=== PATIENT | male | born 1935 | race Caucasian/White ===

== ENCOUNTER 2020-08-08 13:39 | Outpatient (RCR) | payer MEDICARE, SELFPAY ==
[2020-10-07 12:25] LABS: Glucose, Whole Blood 106 mg/dL (60-115)
--- NOTE | 2020-11-28 15:33 | P.DS_ITS ---
DS: Providers Provider Date of Service: 11/29/20 DS: Transfer Hospital Acceptance Name of Facility[facility] [place] DS: Diagnosis Discharge Diagnosis (1) Dementia: Status: Acute (2) Neuropathy: Status: Acute (3) HTN (hypertension): Status: Acute (4) BPH (benign prostatic hyperplasia): Status: Acute DS: Medications Discharge Medications Home Medications: Previous Rx's Medication Instructions Recorded acetaminophen 325 mg PO Q4H PRN #30 tab 11/28/20 acetaminophen 650 mg PO TID@0800,1300,2000 #30 11/28/20 tab aspirin 81 mg PO DAILY@0900 #30 tab 11/28/20 atenolol 25 mg PO DAILY@0800 #30 tab 11/28/20 atorvastatin 10 mg PO BEDTIME@1999 #30 tab 11/28/20 betamethasone, augmented 1 appl TOPICAL BID #30 g 11/28/20 bisacodyl [Gentle Laxative 10 mg [place] DAILY PRN #30 ea 11/28/20 (bisacodyl)] docusate sodium 100 mg PO BID@0900,1700 #30 ml 11/28/20 donepezil 10 mg PO BEDTIME@2000 #30 tab 11/28/20 lisinopril 10 mg PO DAILY@0800 #30 tab 11/28/20 magnesium hydroxide [Milk of 30 ml PO BEDTIME PRN #30 ml 11/28/20 Magnesia] memantine 5 mg PO BID@1000,2200 #30 tab 11/28/20 oxycodone 5 mg PO Q6H PRN #30 tab 11/28/20 polyethylene glycol 3350 17 g PO DAILY #30 ea 11/28/20 sennosides [Senna Lax] 8.6 mg PO DAILY@2100 #30 tab 11/28/20 tamsulosin 0.4 mg PO DAILY@2000 #30 cap 11/28/20 DS: Summary Hospital Course Hospital Course: Mr. Giordano is a 84 year old with a history of progressive dementia, prior heavy alcohol use with subsequent neuropathy, HTN and a history of falls. Mr. Traylor's HTN is well controlled on his current regimen. He has a history of heavy alcohol use and has a subsequent neuropathy. He also has dementia which may be related to his alcohol use. He is on aricept and memantine. Mr Kymberly does have an expressive aphasia and is often yelling out, but is redirectable. It is unclear if this is part of the patient's dementia. I see no record of a stroke. The patient does have a history of BPH and is on flomax. Mr. Traylor did not have any acute care hospitalizations while with us. He tested positive for COVID in March 2020 and did receive two doses of the Pfizer COVID vaccine under our care. Time Spent with Patient Time attestation: Total time spent providing and/or coordinating discharge services: Discharge coordination time: Greater than 30 minutes DS: Data Data Completed and Pending Labs on day of discharge: Laboratory Tests 10/07/20 12:21 POC Glucose 106 Discharge Plan Discharge Attending provider: Shabbir Faye Medications: New docusate sodium 50 mg/5 mL Liquid 100 mg PO BID@0900,1700 Qty: 30 RF: 0 sennosides [Senna Lax] 8.6 mg Tablet 8.6 mg PO DAILY@2100 Qty: 30 RF: 0 acetaminophen 325 mg Tablet 650 mg PO TID@0800,1300,1999 Qty: 30 RF: 0 acetaminophen 325 mg Tablet 325 mg PO Q4H PRN (Reason: Pain, Mild (Pain Scale 1-3)) Qty: 30 RF: 0 polyethylene glycol 3350 17 gram Powder In Packet 17 g PO DAILY Qty: 30 RF: 0 atorvastatin 10 mg Tablet 10 mg PO BEDTIME@1999 Qty: 30 RF: 0 donepezil 10 mg Tablet 10 mg PO BEDTIME@1999 Qty: 30 RF: 0 betamethasone, augmented 0.05 % Cream 1 appl topical BID Qty: 30 RF: 0 atenolol 25 mg Tablet 25 mg PO DAILY@0800 Qty: 30 RF: 0 magnesium hydroxide [Milk of Magnesia] 400 mg/5 mL Suspension 30 ml PO BEDTIME PRN (Reason: Constipation) Qty: 30 RF: 0 tamsulosin 0.4 mg Capsule 0.4 mg PO DAILY@1999 Qty: 30 RF: 0 bisacodyl [Gentle Laxative (bisacodyl)] 10 mg Suppository 10 mg TN DAILY PRN (Reason: Constipation) Qty: 30 RF: 0 lisinopril 10 mg Tablet 10 mg PO DAILY@0800 Qty: 30 RF: 0 aspirin 81 mg Tablet,Chewable 81 mg PO DAILY@0900 Qty: 30 RF: 0 oxycodone 5 mg Tablet 5 mg PO Q6H PRN (Reason: Pain, Severe (Pain Scale 7-10)) Qty: 30 RF: 0 memantine 5 mg Tablet 5 mg PO BID@1000,2200 Qty: 30 RF: 0
== END 2020-11-29 14:53 | disposition home or self-care (01) ==
LOC: HO.SHU2 13:39
PROVIDERS: Visit Provider Hospitalist
DX: Z51.89 Encounter for other specified aftercare (principal)
CPT/HCPCS: 82947; 99217

== ENCOUNTER 2020-12-02 05:36 | Outpatient (REF) | payer MEDICARE, SELFPAY ==
[2020-12-02 06:50] LABS: Basophils Percent Auto 0.3 % (0-2); Eosinophils Absolute Auto 0.5 X10*3/uL (0.0-0.4); Eosinophils Percent Auto 5.4 % (0-4); Hemoglobin 8.7 g/dl (14.0-18.0); Imm Gran Abs Auto 0.05 X10*3/uL (0.00-0.03); Imm Gran Pct Auto 0.6 % (0.0-0.4); Lymphocytes Absolute Auto 2.1 X10*3/uL (1.2-4.9); Lymphocytes Percent Auto 23.1 % (20-40); MANUAL DIFF FLAG NO; Mean Corpuscular HGB Conc 33.5 g/dl (31.0-36.0); Mean Corpuscular Hemoglobin 32.5 pg (27.0-33.0); Mean Platelet Volume 9.7 fL (9.4-12.4); Monocytes Absolute Auto 0.9 X10*3/uL (0.1-1.2); Monocytes Percent Auto 9.9 % (2-11); Neutrophils Absolute Auto 5.5 X10*3/uL (2.0-8.3); Neutrophils Percent Auto 60.7 % (45-73); Platelet Count 230 X10*3/uL (160-400); Red Blood Count 2.68 X10*6/uL (4.60-5.80); Red Cell Distribution Width 12.9 % (11.0-16.0); White Blood Count 9.1 X10*3/uL (4.8-10.8)
[2020-12-02 07:28] LABS: Anion Gap 13 (12-20); Blood Urea Nitrogen 59 mg/dL (9-16); Calcium 8.8 mg/dL (8.4-10.2); Carbon Dioxide 25 mmol/L (22-29); Chloride 107 mmol/L (96-108); Estimated Glomerular Filt Rate 53; Glucose Fasting 90 mg/dL (60-99); Potassium 4.2 mmol/l (3.3-5.1); Sodium 141 mmol/L (135-145)
== END 2020-12-02 05:37 | disposition home or self-care (01) ==
LOC: HO.HSH2E 05:36
PROVIDERS: Visit Provider Internal Medicine Endocrinology, Diabetes & Metabolism
DX: D64.9 Anemia, unspecified (principal)
CPT/HCPCS: 36415; 80048; 85025

== ENCOUNTER 2020-12-03 07:07 | Outpatient (REF) | payer MEDICARE, SELFPAY ==
[2020-12-03 09:06] LABS: Ferritin 138 ng/mL (20-250)
[2020-12-03 09:29] LABS: Folate > 20.0 ng/mL (> or = 4.0); Vitamin B12 772 pg/mL (200-900)
[2020-12-04 18:11] LABS: Haptoglobin 201 mg/dL (43-212)
== END 2020-12-03 07:08 | disposition home or self-care (01) ==
LOC: HO.HSH2E 07:07
PROVIDERS: Visit Provider Internal Medicine Endocrinology, Diabetes & Metabolism
DX: D64.9 Anemia, unspecified (principal); G62.9 Polyneuropathy, unspecified; F03.90 Unspecified dementia, unspecified severity, without behavioral disturbance, psychotic disturbance, mood disturbance, and anxiety
CPT/HCPCS: 36415; 82607; 82728; 82746; 83010

== ENCOUNTER 2020-12-12 04:04 | Emergency (ER) | payer MEDICARE, SELFPAY ==
[2020-12-12 04:18] VITALS: BP 137/65; PULSE 69; RESP 19; TEMP 36.9; O2SAT 97; BMI 28.5
--- NOTE | 2020-12-12 04:47 | XR_ITS ---
EXAMINATION: XR CHEST CLINICAL INFORMATION: Cough COMPARISON: None TECHNIQUE: Frontal view of the chest was obtained. FINDINGS: Lung volumes are symmetric. Patchy retrocardiac opacity is noted. No evidence of pneumothorax, pleural effusion, or pulmonary edema. Cardiac size is within normal limits. Calcification is present at the aortic arch. There is chronic-appearing deformity of the right humeral neck. No acute osseous findings are seen. XR/XR chest 1V IMPRESSION: 1. Patchy retrocardiac opacity suspicious for developing consolidation. 2. Chronic-appearing right humeral neck deformity; clinical correlation recommended.
--- NOTE | 2020-12-12 04:48 | ED_ITS ---
HPI - Fever General Chief Complaint: Fever Stated Complaint: fever Time Seen by Provider: 12/12/20 04:46 History of Present Illness HPI Narrative: This is a an 85-year-old male [facility] a significant past medical history of dementia, neuropathy, hypert ension, BPH for reported concerns elevated temperature of 100.8? after receiving 2nd COVID-19 vaccination. The [facility] did not administer Tylenol. Related Data Previous Rx's Medication Instructions Recorded acetaminophen 325 mg PO Q4H PRN #30 tab 11/28/20 acetaminophen 650 mg PO TID@0800,1300,2000 #30 11/28/20 tab aspirin 81 mg PO DAILY@0900 #30 tab 11/28/20 atenolol 25 mg PO DAILY@0800 #30 tab 11/28/20 atorvastatin 10 mg PO BEDTIME@1999 #30 tab 11/28/20 betamethasone, augmented 1 appl TOPICAL BID #30 g 11/28/20 bisacodyl [Gentle Laxative 10 mg [place] DAILY PRN #30 ea 11/28/20 (bisacodyl)] docusate sodium 100 mg PO BID@0900,1700 #30 ml 11/28/20 donepezil 10 mg PO BEDTIME@1999 #30 tab 11/28/20 lisinopril 10 mg PO DAILY@0800 #30 tab 11/28/20 magnesium hydroxide [Milk of 30 ml PO BEDTIME PRN #30 ml 11/28/20 Magnesia] memantine 5 mg PO BID@1000,2200 #30 tab 11/28/20 oxycodone 5 mg PO Q6H PRN #30 tab 11/28/20 polyethylene glycol 3350 17 g PO DAILY #30 ea 11/28/20 sennosides [Senna Lax] 8.6 mg PO DAILY@2100 #30 tab 11/28/20 tamsulosin 0.4 mg PO DAILY@1999 #30 cap 11/28/20 doxycycline monohydrate 100 mg PO BID 7 Days #14 cap 12/12/20 Allergies Allergy/AdvReac Type Severity Reaction Status Date / Time morphine [MORPHINE] Allergy Mild UNKNOWN Unverified 08/01/20 18:51 erythromycin base Allergy Unknown UNKNOWN Unverified 08/01/20 18:51 [ERYTHROMYCIN BASE] valsartan [VALSARTAN] Allergy Unknown UNKNOWN Unverified 08/01/20 18:51 Review of Systems Review of Systems: Yes Unobtainable due to mental status PMF Past Medical History Source: nursing notes reviewed Medical History Dementia Social History Social History Alcohol intake: unknown Smoking Status: Unknown if ever smoked Use of substances other than those prescribed or required for medical reasons: Unknown Advance Directives: No Physical Exam Vital Signs: Vital Signs: Last Vital Signs Temp 97.6 F 12/12/20 05:48 Pulse 73 12/12/20 05:48 Resp 16 12/12/20 05:48 BP 164/76 H 12/12/20 05:48 Pulse Ox 95 12/12/20 05:48 Body Mass Index 28.5 VITAL SIGNS: Reviewed. GENERAL: Chronically ill, in no acute distress. HEAD: Normocephalic/atraumatic, EYES: PERRLA, EOMI EARS: Ext canals without abnormality NOSE: Nares patent bilateral OROPHARYNX: no oral lesions noted, posterior pharynx clear NECK: Supple, no adenopathy LUNGS: Normal breath sounds. No adventitious sounds or accessory muscle use. SpO2<97> CARDIOVASCULAR: Irregular rate and rhythm without noted murmurs, no JVD or lower extremity edema. ABDOMEN: Soft, non-tender, non-distended with bowel sounds. NEUROLOGIC: Dementia Course Course Course Narrative: This is an 85-year-old male with history and clinical presentation of unclear etiology of [facility]. Review all investigations shows a mild leukocytosis with a reported patchy retrocardiac opacity suspicious for developing consolidation on the chest x-ray without associated tachypnea or hypoxia. Potassium level-5.7 without worsening renal function and may coincide with recent change and lisinopril on 12/05. Patient will be discharged with oral antibiotics and a 1 time dose of Kayexalate with [facility] to repeat the basic metabolic panel in the afternoon for reassessment. Of note, the EKG reflected a rate controlled atrial fibrillation which is not recorded on available documentation and there is no prior EKG for comparison. Patient is known to be a fall risk and could explain the absence of anticoagulation meds on the JAN. MDM - Fever Lab Data Result diagrams: 12/12/20 05:02 12/12/20 05:02 Labs: Lab Results 12/12/20 12/12/20 12/12/20 Range/Units 05:02 05:02 05:51 WBC 11.3 H (4.8-10.8) X10*3/uL RBC 2.97 L (4.60-5.80) X10*6/uL Hgb 9.7 L (14.0-18.0) g/dl Hct 29.0 L (42-52) % MCV 97.6 (80-98) fL MCH 32.7 (27.0-33.0) pg MCHC 33.4 (31.0-36.0) g/dl RDW 12.7 (11.0-16.0) % Plt Count 202 (160-400) X10*3/uL MPV 9.7 (9.4-12.4) fL Immature Gran % (Auto) 0.7 H (0.0-0.4) % Neut % (Auto) 59.4 (45-73) % Lymph % (Auto) 25.2 (20-40) % [place] % (Auto) 9.7 (2-11) % Eos % (Auto) 4.6 H (0-4) % Baso % (Auto) 0.4 (0-2) % Lymph # (Auto) 2.9 (1.2-4.9) X10*3/uL [place] # (Auto) 1.1 (0.1-1.2) X10*3/uL Eos # (Auto) 0.5 H (0.0-0.4) X10*3/uL Baso # (Auto) 0.0 (0.0-0.2) X10*3/uL Abs Immat Gran (auto) 0.08 H (0.00-0.03) X10*3/uL Absolute Neuts (auto) 6.7 (2.0-8.3) X10*3/uL Absolute Nucleated RBC 0.000 (0.0-0.012) X10*3/uL Nucleated RBC % (auto) 0.0 (0.0-0.2) /100WBC Sodium 135 (135-145) mmol/L Potassium 5.7 H D (3.3-5.1) mmol/l Chloride 103 (96-108) mmol/L Carbon Dioxide 20 L (22-29) mmol/L Anion Gap 18 (12-20) BUN 55 H (9-16) mg/dL Creatinine 1.21 (0.5-1.4) mg/dL Estim Creat Clear Calc 55.3 Estimated GFR 57 Random Glucose 82 (60-115) mg/dL Calcium 8.8 (8.4-10.2) mg/dL Total Bilirubin 0.5 (0.0-1.0) mg/dL AST 19 (5-37) U/L ALT 10 (0-40) U/L Alkaline Phosphatase 69 (39-117) U/L Total Protein 6.8 (6.5-8.0) g/dL Albumin 3.8 (3.5-5.0) g/dL Urine Color YELLOW Urine Appearance CLEAR Urine pH 6.5 (5.0-8.0) Ur Specific [place] 1.020 (1.005-1.025) Urine Protein 1+ H (NEG-TRACE) MG/DL Urine Glucose (UA) NEG (NEG) MG/DL Urine Ketones NEG (NEG) MG/DL Urine Blood 1+ H (NEG) Urine Nitrite NEG (NEG) Ur Leukocyte Esterase NEG (NEG) Urine RBC 5-9 H (0) /HPF Urine WBC 1-4 (0-4) /HPF Ur Squamous Epith Cells 1+ /LPF Ur Renal Epithelial Cell 1+ /LPF Urine Bacteria 1+ /LPF ECG Data ECG #1: Attestation: I personally reviewed and interpreted this ECG as follows: Prior ECG tracings: not available for review Interpretation: Atrial fibrillation, HR-68, QRS/QTC within normal limits. Discharge Plan Discharge Clinical Impression: Temperature elevated Pneumonia Qualifiers: Pneumonia type: due to unspecified organism Laterality: unspecified laterality Lung location: unspecified part of lung Qualified Code(s): J18.9 - Pneumonia, unspecified organism Patient Disposition: er [facility] Instructions: Pneumonia (ED) Additional Instructions: 1. Patient was evaluated for elevated temperature and noted to have a mild leukocytosis with chest x-ray findings of patchy opacity suggestive of possible pneumonia and will be sent with a prescription for a course of doxycycline. 2. On basic workup patient was noted to have an elevated potassium level without change in renal function and it is felt this is likely due to recent changes in lisinopril dosing. He was provided with a single dose of Kayexalate and should have his potassium level recheck to this afternoon. 3. The supervising physician should be notified of this potassium level in the morning and appropriate action taken. Prescriptions: New doxycycline monohydrate 100 mg capsule 100 mg PO BID 7 Days Qty: 14 RF: 0 No Action docusate sodium 50 mg/5 mL Liquid 100 mg PO BID@0900,1700 Qty: 30 RF: 0 sennosides [Senna Lax] 8.6 mg Tablet 8.6 mg PO DAILY@2100 Qty: 30 RF: 0 acetaminophen 325 mg Tablet 650 mg PO TID@0800,1300,2000 Qty: 30 RF: 0 acetaminophen 325 mg Tablet 325 mg PO Q4H PRN (Reason: Pain, Mild (Pain Scale 1-3)) Qty: 30 RF: 0 polyethylene glycol 3350 17 gram Powder In Packet 17 g PO DAILY Qty: 30 RF: 0 atorvastatin 10 mg Tablet 10 mg PO BEDTIME@1999 Qty: 30 RF: 0 donepezil 10 mg Tablet 10 mg PO BEDTIME@1999 Qty: 30 RF: 0 betamethasone, augmented 0.05 % Cream 1 appl topical BID Qty: 30 RF: 0 atenolol 25 mg Tablet 25 mg PO DAILY@0800 Qty: 30 RF: 0 magnesium hydroxide [Milk of Magnesia] 400 mg/5 mL Suspension 30 ml PO BEDTIME PRN (Reason: Constipation) Qty: 30 RF: 0 tamsulosin 0.4 mg Capsule 0.4 mg PO DAILY@1999 Qty: 30 RF: 0 bisacodyl [Gentle Laxative (bisacodyl)] 10 mg Suppository 10 mg [place] DAILY PRN (Reason: Constipation) Qty: 30 RF: 0 lisinopril 10 mg Tablet 10 mg PO DAILY@0800 Qty: 30 RF: 0 aspirin 81 mg Tablet,Chewable 81 mg PO DAILY@0900 Qty: 30 RF: 0 oxycodone 5 mg Tablet 5 mg PO Q6H PRN (Reason: Pain, Severe (Pain Scale 7-10)) Qty: 30 RF: 0 memantine 5 mg Tablet 5 mg PO BID@1000,2200 Qty: 30 RF: 0
[2020-12-12 04:57] VITALS: BP 122/60; PULSE 78; RESP 11; O2SAT 98
[2020-12-12 05:05] LABS: MANUAL DIFF FLAG NO
[2020-12-12 05:06] LABS: Basophils Percent Auto 0.4 % (0-2); Eosinophils Absolute Auto 0.5 X10*3/uL (0.0-0.4); Eosinophils Percent Auto 4.6 % (0-4); Hemoglobin 9.7 g/dl (14.0-18.0); Imm Gran Abs Auto 0.08 X10*3/uL (0.00-0.03); Imm Gran Pct Auto 0.7 % (0.0-0.4); Lymphocytes Absolute Auto 2.9 X10*3/uL (1.2-4.9); Lymphocytes Percent Auto 25.2 % (20-40); Mean Corpuscular HGB Conc 33.4 g/dl (31.0-36.0); Mean Corpuscular Hemoglobin 32.7 pg (27.0-33.0); Mean Corpuscular Volume 97.6 fL (80-98); Mean Platelet Volume 9.7 fL (9.4-12.4); Monocytes Absolute Auto 1.1 X10*3/uL (0.1-1.2); Monocytes Percent Auto 9.7 % (2-11); Neutrophils Absolute Auto 6.7 X10*3/uL (2.0-8.3); Neutrophils Percent Auto 59.4 % (45-73); Platelet Count 202 X10*3/uL (160-400); Red Blood Count 2.97 X10*6/uL (4.60-5.80); Red Cell Distribution Width 12.7 % (11.0-16.0); White Blood Count 11.3 X10*3/uL (4.8-10.8)
[2020-12-12 05:37] LABS: Alanine Aminotransferase 10 U/L (0-40); Albumin Level 3.8 g/dL (3.5-5.0); Alkaline Phosphatase 69 U/L (39-117); Anion Gap 18 (12-20); Aspartate Amino Transferase 19 U/L (5-37); Bilirubin Total 0.5 mg/dL (0.0-1.0); Blood Urea Nitrogen 55 mg/dL (9-16); Calcium 8.8 mg/dL (8.4-10.2); Carbon Dioxide 20 mmol/L (22-29); Chloride 103 mmol/L (96-108); Creatinine Clr Calc Pharmacy 55.3; Estimated Glomerular Filt Rate 57; Glucose Random 82 mg/dL (60-115); Potassium 5.7 mmol/l (3.3-5.1); Sodium 135 mmol/L (135-145); Total Protein 6.8 g/dL (6.5-8.0)
[2020-12-12 05:48] VITALS: BP 164/76; PULSE 73; RESP 16; TEMP 36.4; O2SAT 95
[2020-12-12 06:01] LABS: Glucose Urine UA NEG (NEG); Leukocyte Esterase Urine NEG (NEG); Nitrite Urine NEG (NEG); PH 6.5 (5.0-8.0); Urine Blood 1+ (NEG); Urine Ketones NEG (NEG); Urine Protein 1+ MG/DL (NEG-TRACE)
[2020-12-12 06:09] LABS: Appearance Urine CLEAR; Bacteria Urine 1+ /LPF; Color Urine YELLOW; Renal Epithelial Cells Urine 1+ /LPF; Squamous Epithelial Cell Urine 1+ /LPF
--- NOTE | 2020-12-12 06:11 | ECG_ITS ---
Test Reason : COUGH Blood Pressure : / mmHG Vent. Rate : 068 BPM Atrial Rate : 065 BPM P-R Int : 000 ms QRS Dur : 070 ms QT Int : 388 ms P-R-T Axes : 000 005 050 degrees QTc Int : 412 ms Normal sinus rhythm with PACs Normal ECG No previous ECGs available Referred By: Maile Stephens Electronically Signed By:Chaparro Quintero
[2020-12-12] MEDS: Sodium Polystyrene Sulfon/Sorb 15 GM/60 ML ORAL.SUSP PO (07:15)
== END 2020-12-12 08:09 | disposition skilled nursing facility (03) ==
PROVIDERS: Emergency Provider Student in an Organized Health Care Education/Training Program
DX: J18.9 Pneumonia, unspecified organism (principal); R50.83 Postvaccination fever; F03.90 Unspecified dementia, unspecified severity, without behavioral disturbance, psychotic disturbance, mood disturbance, and anxiety; I10 Essential (primary) hypertension
CPT/HCPCS: 36415; 71045; 80053; 81001; 85025; 93005; 99283; 99284

== ENCOUNTER 2020-12-13 05:39 | Outpatient (REF) | payer MEDICARE, SELFPAY ==
[2020-12-13 08:22] LABS: Anion Gap 14 (12-20); Carbon Dioxide 23 mmol/L (22-29); Chloride 105 mmol/L (96-108); Sodium 137 mmol/L (135-145)
== END 2020-12-13 05:40 | disposition home or self-care (01) ==
LOC: HO.HSH2E 05:39
PROVIDERS: Visit Provider Internal Medicine Endocrinology, Diabetes & Metabolism
DX: J18.9 Pneumonia, unspecified organism (principal)
CPT/HCPCS: 36415; 80051

== ENCOUNTER 2020-12-24 07:35 | Outpatient (REF) | payer MEDICARE, SELFPAY ==
[2020-12-24 09:30] LABS: CDIFF Ag Negative (Negative); CDiff Toxin Negative (Negative)
[2020-12-24 09:31] LABS: CDIFF Internal ctrl Dots and bkg OK (V)
== END 2020-12-24 07:36 | disposition home or self-care (01) ==
LOC: HO.HSH2E 07:35
PROVIDERS: Visit Provider Internal Medicine Endocrinology, Diabetes & Metabolism
DX: Z13.89 Encounter for screening for other disorder (principal)
CPT/HCPCS: 87324; 87449

== ENCOUNTER 2020-12-24 12:34 | Emergency (ER) | payer MEDICARE, SELFPAY ==
--- NOTE | ~2020-12-24 | CT_ITS ---
EXAMINATION: CT HEAD WITHOUT CONTRAST (STROKE PROTOCOL) CLINICAL INFORMATION: Stroke protocol. Altered mental status and right facial droop. COMPARISON: CT head dated 12/21/2019 and MRI brain dated 08/10/2018 TECHNIQUE: Contiguous axial imaging was performed from the skull base to vertex without intravenous administration of contrast. This CT examination was performed using dose optimization techniques as appropriate, variously including the following: *Automated exposure control *Adjustment of mA and/or kV according to patient size (this includes techniques or standardized protocols for targeted exams where dose is matched to indication/reason for exam; i.e. extremities or head) *Use of iterative reconstruction technique DLP: 762 mGy-cm FINDINGS: There is no intracranial hemorrhage, hematoma or extra-axial fluid collection. The ventricles show stable mild enlargement, commensurate with advanced age. There is generalized sulcal widening. There is no edema, or mass effect. The mitchell-white matter differentiation appears symmetric. There is no acute infarct or mass lesion. There is stable mineralization of the caudate head. There is mild patchy low attenuation change in the periventricular white matter spaces. There are atherosclerotic calcifications of the skull base vasculature. The calvarium appears intact. There is no pneumocephalus or orbital emphysema. The visualized sinuses and middle ears and mastoid air cells show no significant mucosal thickening. There are no air-fluid levels. CT/CT head for stroke IMPRESSION: 1. No acute intracranial pathology. 2. There is mild patchy low attenuation change in the periventricular white matter spaces, commonly associated with chronic microangiopathy. This critical result was discussed with Dr. Altman at 12:57 PM on 12/24/2020. It was ascertained that the content and urgency of the report was understood at the time of direct communication.
--- NOTE | ~2020-12-24 | XR_ITS ---
EXAMINATION: XR CHEST CLINICAL INFORMATION: Altered mental status. Assess for pneumonia. COMPARISON: Chest radiograph 12/12/2020 TECHNIQUE: Portable upright AP view of the chest was obtained. FINDINGS: The lungs are clear. There is no airspace consolidation or groundglass opacity or effusion. The heart is normal in size. The vascularity is normal. The hilar and mediastinal contours are unremarkable. No visible acute bony abnormality. Again, there is chronic posttraumatic deformity proximal right humerus. XR/XR chest 1V IMPRESSION: Unremarkable examination.
--- NOTE | 2020-12-24 12:37 | ECG_ITS ---
Test Reason : STROKE Blood Pressure : / mmHG Vent. Rate : 060 BPM Atrial Rate : 060 BPM P-R Int : 242 ms QRS Dur : 070 ms QT Int : 404 ms P-R-T Axes : 072 024 048 degrees QTc Int : 404 ms Sinus rhythm with 1st degree A-V block Otherwise normal ECG When compared with ECG of 12-DEC-2020 06:23, No significant changes seen Referred By: Keon Altman Electronically Signed By:MAXIMILIAN COELLO
--- NOTE | 2020-12-24 12:43 | ED_ITS ---
HPI - General Adult General Chief complaint: Stroke Stated complaint: STROKE ALERT,AMS,R FACE DROOP,1 1/2 HRS Time Seen by Provider: 12/24/20 12:36 Source: EMS Mode of arrival: EMS Limitations: altered mental status (Dementia, nonverbal) History of Present Illness HPI narrative: 85-year-old male who resides at the [facility] who was sent to the emergency department for evaluation of altered level of con sciousness. The patient was made a stroke alert by EMS. The patient has dementia and is generally non verbal and moans at his baseline. According to EMS, the patient appeared to be altered approximately 1-1/2 hours prior to coming to the emergency department. He was also noted to have a new right facial droop and new right-sided weakness. The following was obtained from the [facility] transfer form: -Baseline pain and right shoulder (no BP's and right arm), unreactive when right arm moved at this time. -yells out at baseline-minimally verbal-can be aggressive at times -has been having loose stool, C diff result negative today In reviewing his past medical record, the patient was seen in the emergency department on December 12, 2020 and diagnosed with pneumonia, treated with doxy cycline as an outpatient. He has a history of dementia, neuropathy, hypertension and BPH. The patient has a MOLST form which she states attempt resuscitation, do not intubate and ventilated, use noninvasive ventilation, transferred to hospital, use dialysis but short-term only, use artificial nutrition but short-term early, use artificial hydration but short-term only. Related Data Previous Rx's Medication Instructions Recorded acetaminophen 325 mg PO Q4H PRN #30 tab 11/28/20 acetaminophen 650 mg PO TID@0800,1300,1999 #30 11/28/20 tab aspirin 81 mg PO DAILY@0900 #30 tab 11/28/20 atenolol 25 mg PO DAILY@0800 #30 tab 11/28/20 atorvastatin 10 mg PO BEDTIME@1999 #30 tab 11/28/20 betamethasone, augmented 1 appl TOPICAL BID #30 g 11/28/20 bisacodyl [Gentle Laxative 10 mg MI DAILY PRN #30 ea 11/28/20 (bisacodyl)] docusate sodium 100 mg PO BID@0900,1700 #30 ml 11/28/20 donepezil 10 mg PO BEDTIME@2000 #30 tab 11/28/20 lisinopril 10 mg PO DAILY@0800 #30 tab 11/28/20 magnesium hydroxide [Milk of 30 ml PO BEDTIME PRN #30 ml 11/28/20 Magnesia] memantine 5 mg PO BID@1000,2200 #30 tab 11/28/20 oxycodone 5 mg PO Q6H PRN #30 tab 11/28/20 polyethylene glycol 3350 17 g PO DAILY #30 ea 11/28/20 sennosides [Senna Lax] 8.6 mg PO DAILY@2100 #30 tab 11/28/20 tamsulosin 0.4 mg PO DAILY@2000 #30 cap 11/28/20 doxycycline monohydrate 100 mg PO BID 7 Days #14 cap 12/12/20 Allergies Allergy/AdvReac Type Severity Reaction Status Date / Time morphine [MORPHINE] Allergy Mild UNKNOWN Verified 12/24/20 12:56 erythromycin base Allergy Unknown UNKNOWN Verified 12/24/20 12:56 [ERYTHROMYCIN BASE] valsartan [VALSARTAN] Allergy Unknown UNKNOWN Verified 12/24/20 12:56 Review of Systems Review of Systems: Yes Unobtainable due to mental status (Altered mental s tatus and chronic dementia) [facility] Past Medical History [facility] Narrative: Past medical history obtained from records: COVID-19 positive in past, history of multiple falls, Alzheimer's dementia, microvascular disease, neuropathy, hypertension, hyperlipidemia, chronic right shoulder pain and BPH. 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 Medical History Dementia Social History Social History Alcohol intake: unknown Smoking Status: Unknown if ever smoked Physical Exam Vital Signs: Vital Signs: Last Vital Signs Temp 96.6 F L 12/24/20 12:55 Pulse 57 12/24/20 12:55 Resp 16 12/24/20 12:55 BP 161/63 H 12/24/20 12:55 Pulse Ox 99 12/24/20 12:55 Body Mass Index 23.5 Const: General: ill appearing chronically and other (Non verbal, moans at base line, alert) Nutritional Appearance: overweight Limitations: other limitations (Alzheimer's dementia, nonverbal) HENMT: Head: Yes normal to inspection, Yes normocephalic and Yes atraumatic Ears: external ears normal General nose exam: Normal external nose present Face and sinus: Yes normal facial exam Mouth: Normal oral and palatal mucosa present Teeth and gingiva: edentulous Throat: Yes posterior oropharynx normal Eyes: Periorbital: periorbital findings normal Eyelids: Yes eyelids normal Conjunctivae: conjunctivae normal Sclerae: sclerae normal Corneas: corneas normal Pupils: Pinpoint pupils bilaterally Direct Ophthalmoscopy: normal light reflex Neck: Neck: Yes no lymphadenopathy, Yes trachea midline and Yes supple Chest: Chest palpation & inspection: normal inspection of the chest and normal palpation of entire chest wall Resp: Effort & Inspection: normal respiratory effort Auscultation: clear to auscultation bilaterally Cardio: Rate: regular rate Rhythm: regular rhythm Heart sounds: S1 normal heart sound present, S2 normal heart sound present and no murmurs GI: Inspection: Yes normal to inspection Palpation (GI): Soft to palpation, nontender, no guarding, not rigid and No hepatosplenomegaly present : General: Yes no CVA tenderness Back/Spine/Pelvis: Back: no CVA tenderness Skin: Lesions: no lesions Rashes: no rashes Wounds: no wounds Neuro: General: other (Nonverbal, moans at baseline) Motor exam (neuro): Other motor observations present (Unable to hold R arm up against gravity, lower extremities withdraw to pain) Extrem: General: Yes normal to inspection Psych: Mental Status: other (Nonverbal, groans at baseline) Course Course Course Narrative: 85-year-old male who presents the emergency department for evaluation altered mental status and new right arm weakness. Last well-known time was difficult to characterize but it may be 1-1/2 hours prior to evaluation. Physical examination does reveal flaccid paralysis of the right upper extremity which may be new based on note sent to the ED from his care facility. The patient's point of care glucose was 116. The patient was sent immediately to CT scan on presentation to the ED. according to radiologist, the patient has chronic changes no acute findings, there is atrophy and small vessel disease, there is a bright lesion noted in the left caudate which the radiologist states is old and most likely represents calcification. I did discuss the patient's presentation with our covering neurologist, Dr. Elliott, given this patient's poor baseline and difficulty determining his last well- known time, we both felt that this patient was a poor candidate for thrombol ytics and thrombolytics therapy would be inappropriate in this patient. I did order laboratory evaluation and urinalysis on this patient. 1521: The patient's laboratory evaluation did reveal an elevated BUN and creatinine of 75 and 1.52 above his baseline of 55 and 1.2 on 12/12/2020. The patient is anemic with an H&H of 9.6 and 28.9 but this appears to be chronic. The patient's urinalysis was negative for infection. Troponin was only slightly elevated at 3.6 which I do not think is significant. Chest x-ray was negative. CT scan of the brain did not reveal any acute findings to suggest acute stroke. I did discuss the patient's presentation with his PCP, Dr. Ambar Lam [facility]. He requested that I contact the patient's daughter and I did discuss my findings with the patient's daughter, Verito. I did discuss the fact that the patient may have had a stroke versus a TIA and that further evaluation would not probably change our treatment plan. Given this discussion, she felt comfortable the [facility] I will discuss this with Dr. Lam as well. I did order 1 L of normal saline IV since that think that the patient is volume depleted. Medical Decision Making Lab Data Result diagrams: 12/24/20 13:11 12/24/20 13:11 Labs: Lab Results 12/24/20 12/24/20 12/24/20 Range/Units 12:41 12:43 13:10 WBC (4.8-10.8) X10*3/uL RBC (4.60-5.80) X10*6/uL Hgb (14.0-18.0) g/dl Hct (42-52) % MCV (80-98) fL MCH (27.0-33.0) pg MCHC (31.0-36.0) g/dl RDW (11.0-16.0) % Plt Count (160-400) X10*3/uL MPV (9.4-12.4) fL Immature Gran % (Auto) (0.0-0.4) % Neut % (Auto) (45-73) % Lymph % (Auto) (20-40) % [place] % (Auto) (2-11) % Eos % (Auto) (0-4) % Baso % (Auto) (0-2) % Lymph # (Auto) (1.2-4.9) X10*3/uL [place] # (Auto) (0.1-1.2) X10*3/uL Eos # (Auto) (0.0-0.4) X10*3/uL Baso # (Auto) (0.0-0.2) X10*3/uL Abs Immat Gran (auto) (0.00-0.03) X10*3/uL Absolute Neuts (auto) (2.0-8.3) X10*3/uL Absolute Nucleated RBC (0.0-0.012) X10*3/uL Nucleated RBC % (auto) (0.0-0.2) /100WBC PT (10.8-13.0) SEC Whole Blood PT 11.6 (11.1-13.5) sec INR (0.9-1.1) Whole Blood INR 1.0 (0.9-1.1) APTT (24.1-38.0) SEC Sodium 140 (135-145) mmol/L Potassium 5.0 (3.3-5.1) mmol/L Chloride 105 (96-108) mmol/L Carbon Dioxide 27 (22-29) mmol/L Anion Gap 13 (12-20) BUN 75 H (9-16) mg/dL Creatinine 1.52 H (0.5-1.4) mg/dL Estim Creat Clear Calc 40.4 Estimated GFR 44 POC Glucose 97 (60-115) mg/dL Random Glucose 96 (60-115) mg/dL Calcium 9.0 (8.4-10.2) mg/dL Total Bilirubin 0.4 (0.0-1.0) mg/dL Direct Bilirubin 0.2 (0.0-0.5) mg/dL AST 16 (5-37) U/L ALT 13 (0-40) U/L Alkaline Phosphatase 63 (39-117) U/L Total Creatine Kinase (38-174) U/L Troponin I High Sens (<3.5-35.0) ng/L Total Protein 6.8 (6.5-8.0) g/dL Albumin 3.9 (3.5-5.0) g/dL Urine Color Urine Appearance Urine pH (5.0-8.0) Ur Specific Renner (1.005-1.025) Urine Protein (NEG-TRACE) MG/DL Urine Glucose (UA) (NEG) MG/DL Urine Ketones (NEG) MG/DL Urine Blood (NEG) Urine Nitrite (NEG) Ur Leukocyte Esterase (NEG) Urine RBC (0) /HPF Urine WBC (0-4) /HPF Ur Squamous Epith Cells /LPF Urine Bacteria /LPF 12/24/20 12/24/20 12/24/20 Range/Units 13:11 13:11 13:11 WBC 9.7 (4.8-10.8) X10*3/uL RBC 2.90 L (4.60-5.80) X10*6/uL Hgb 9.6 L (14.0-18.0) g/dl Hct 28.9 L (42-52) % MCV 99.7 H (80-98) fL MCH 33.1 H (27.0-33.0) pg MCHC 33.2 (31.0-36.0) g/dl RDW 12.7 (11.0-16.0) % Plt Count 227 (160-400) X10*3/uL MPV 9.5 (9.4-12.4) fL Immature Gran % (Auto) 0.9 H (0.0-0.4) % Neut % (Auto) 57.5 (45-73) % Lymph % (Auto) 23.0 (20-40) % Cotton[place] % (Auto) 10.3 (2-11) % Eos % (Auto) 7.8 H (0-4) % Baso % (Auto) 0.5 (0-2) % Lymph # (Auto) 2.2 (1.2-4.9) X10*3/uL [place] # (Auto) 1.0 (0.1-1.2) X10*3/uL Eos # (Auto) 0.8 H (0.0-0.4) X10*3/uL Baso # (Auto) 0.1 (0.0-0.2) X10*3/uL Abs Immat Gran (auto) 0.09 H (0.00-0.03) X10*3/uL Absolute Neuts (auto) 5.6 (2.0-8.3) X10*3/uL Absolute Nucleated RBC 0.000 (0.0-0.012) X10*3/uL Nucleated RBC % (auto) 0.0 (0.0-0.2) /100WBC PT 12.2 (10.8-13.0) SEC Whole Blood PT (11.1-13.5) sec INR 1.0 (0.9-1.1) Whole Blood INR (0.9-1.1) APTT 31.7 (24.1-38.0) SEC Sodium (135-145) mmol/L Potassium (3.3-5.1) mmol/L Chloride (96-108) mmol/L Carbon Dioxide (22-29) mmol/L Anion Gap (12-20) BUN (9-16) mg/dL Creatinine (0.5-1.4) mg/dL Estim Creat Clear Calc Estimated GFR POC Glucose (60-115) mg/dL Random Glucose 96 (60-115) mg/dL Calcium (8.4-10.2) mg/dL Total Bilirubin (0.0-1.0) mg/dL Direct Bilirubin (0.0-0.5) mg/dL AST (5-37) U/L ALT (0-40) U/L Alkaline Phosphatase (39-117) U/L Total Creatine Kinase 22 L (38-174) U/L Troponin I High Sens (<3.5-35.0) ng/L Total Protein (6.5-8.0) g/dL Albumin (3.5-5.0) g/dL Urine Color Urine Appearance Urine pH (5.0-8.0) Ur Specific Renner (1.005-1.025) Urine Protein (NEG-TRACE) MG/DL Urine Glucose (UA) (NEG) MG/DL Urine Ketones (NEG) MG/DL Urine Blood (NEG) Urine Nitrite (NEG) Ur Leukocyte Esterase (NEG) Urine RBC (0) /HPF Urine WBC (0-4) /HPF Ur Squamous Epith Cells /LPF Urine Bacteria /LPF 12/24/20 12/24/20 Range/Units 13:11 13:11 WBC (4.8-10.8) X10*3/uL RBC (4.60-5.80) X10*6/uL Hgb (14.0-18.0) g/dl Hct (42-52) % MCV (80-98) fL MCH (27.0-33.0) pg MCHC (31.0-36.0) g/dl RDW (11.0-16.0) % Plt Count (160-400) X10*3/uL MPV (9.4-12.4) fL Immature Gran % (Auto) (0.0-0.4) % Neut % (Auto) (45-73) % Lymph % (Auto) (20-40) % [place] % (Auto) (2-11) % Eos % (Auto) (0-4) % Baso % (Auto) (0-2) % Lymph # (Auto) (1.2-4.9) X10*3/uL [place] # (Auto) (0.1-1.2) X10*3/uL Eos # (Auto) (0.0-0.4) X10*3/uL Baso # (Auto) (0.0-0.2) X10*3/uL Abs Immat Gran (auto) (0.00-0.03) X10*3/uL Absolute Neuts (auto) (2.0-8.3) X10*3/uL Absolute Nucleated RBC (0.0-0.012) X10*3/uL Nucleated RBC % (auto) (0.0-0.2) /100WBC PT (10.8-13.0) SEC Whole Blood PT (11.1-13.5) sec INR (0.9-1.1) Whole Blood INR (0.9-1.1) APTT (24.1-38.0) SEC Sodium (135-145) mmol/L Potassium (3.3-5.1) mmol/L Chloride (96-108) mmol/L Carbon Dioxide (22-29) mmol/L Anion Gap (12-20) BUN (9-16) mg/dL Creatinine (0.5-1.4) mg/dL Estim Creat Clear Calc Estimated GFR POC Glucose (60-115) mg/dL Random Glucose (60-115) mg/dL Calcium (8.4-10.2) mg/dL Total Bilirubin (0.0-1.0) mg/dL Direct Bilirubin (0.0-0.5) mg/dL AST (5-37) U/L ALT (0-40) U/L Alkaline Phosphatase (39-117) U/L Total Creatine Kinase (38-174) U/L Troponin I High Sens 3.6 (<3.5-35.0) ng/L Total Protein (6.5-8.0) g/dL Albumin (3.5-5.0) g/dL Urine Color YELLOW Urine Appearance CLEAR Urine pH 6.5 (5.0-8.0) Ur Specific Renner 1.020 (1.005-1.025) Urine Protein 1+ H (NEG-TRACE) MG/DL Urine Glucose (UA) NEG (NEG) MG/DL Urine Ketones NEG (NEG) MG/DL Urine Blood 2+ H (NEG) Urine Nitrite NEG (NEG) Ur Leukocyte Esterase NEG (NEG) Urine RBC 5-9 H (0) /HPF Urine WBC 0 (0-4) /HPF Ur Squamous Epith Cells NONE /LPF Urine Bacteria NONE /LPF ECG Data Attestation: I personally reviewed and interpreted this ECG as follows: Interpretation: 1251: Sinus rhythm with a rate of 60, first-degree AV block with a prolonged MI interval of 242 milliseconds, no ST segment elevation or depression, no Q-waves, no T-wave abnormalities. Discharge Plan Discharge Prescriptions: No Action docusate sodium 50 mg/5 mL Liquid 100 mg PO BID@0900,1700 Qty: 30 RF: 0 sennosides [Senna Lax] 8.6 mg Tablet 8.6 mg PO DAILY@2100 Qty: 30 RF: 0 acetaminophen 325 mg Tablet 650 mg PO TID@0800,1300,2000 Qty: 30 RF: 0 acetaminophen 325 mg Tablet 325 mg PO Q4H PRN (Reason: Pain, Mild (Pain Scale 1-3)) Qty: 30 RF: 0 polyethylene glycol 3350 17 gram Powder In Packet 17 g PO DAILY Qty: 30 RF: 0 atorvastatin 10 mg Tablet 10 mg PO BEDTIME@1999 Qty: 30 RF: 0 donepezil 10 mg Tablet 10 mg PO BEDTIME@1999 Qty: 30 RF: 0 betamethasone, augmented 0.05 % Cream 1 appl topical BID Qty: 30 RF: 0 atenolol 25 mg Tablet 25 mg PO DAILY@0800 Qty: 30 RF: 0 magnesium hydroxide [Milk of Magnesia] 400 mg/5 mL Suspension 30 ml PO BEDTIME PRN (Reason: Constipation) Qty: 30 RF: 0 tamsulosin 0.4 mg Capsule 0.4 mg PO DAILY@1999 Qty: 30 RF: 0 bisacodyl [Gentle Laxative (bisacodyl)] 10 mg Suppository 10 mg MI DAILY PRN (Reason: Constipation) Qty: 30 RF: 0 lisinopril 10 mg Tablet 10 mg PO DAILY@0800 Qty: 30 RF: 0 aspirin 81 mg Tablet,Chewable 81 mg PO DAILY@0900 Qty: 30 RF: 0 oxycodone 5 mg Tablet 5 mg PO Q6H PRN (Reason: Pain, Severe (Pain Scale 7-10)) Qty: 30 RF: 0 memantine 5 mg Tablet 5 mg PO BID@1000,2200 Qty: 30 RF: 0 doxycycline monohydrate 100 mg capsule 100 mg PO BID 7 Days Qty: 14 RF: 0
[2020-12-24 12:45] LABS: Glucose, Whole Blood 97 mg/dL (60-115)
[2020-12-24 12:48] LABS: Prothrombin Time Whole Bld POC 11.6 sec (11.1-13.5)
[2020-12-24 12:49] VITALS: BP 117/60; BP 140/63; PULSE 60; RESP 16; TEMP 36.7; O2SAT 98; BMI 23.5
[2020-12-24 12:55] VITALS: BP 161/63; PULSE 57; RESP 16; TEMP 35.9; O2SAT 99
[2020-12-24 13:17] LABS: MANUAL DIFF FLAG NO
[2020-12-24 13:23] LABS: Basophils Absolute Auto 0.1 X10*3/uL (0.0-0.2); Basophils Percent Auto 0.5 % (0-2); Eosinophils Absolute Auto 0.8 X10*3/uL (0.0-0.4); Eosinophils Percent Auto 7.8 % (0-4); Hematocrit 28.9 % (42-52); Hemoglobin 9.6 g/dl (14.0-18.0); Imm Gran Abs Auto 0.09 X10*3/uL (0.00-0.03); Imm Gran Pct Auto 0.9 % (0.0-0.4); Lymphocytes Absolute Auto 2.2 X10*3/uL (1.2-4.9); Mean Corpuscular HGB Conc 33.2 g/dl (31.0-36.0); Mean Corpuscular Hemoglobin 33.1 pg (27.0-33.0); Mean Corpuscular Volume 99.7 fL (80-98); Mean Platelet Volume 9.5 fL (9.4-12.4); Monocytes Percent Auto 10.3 % (2-11); Neutrophils Absolute Auto 5.6 X10*3/uL (2.0-8.3); Neutrophils Percent Auto 57.5 % (45-73); Platelet Count 227 X10*3/uL (160-400); Red Cell Distribution Width 12.7 % (11.0-16.0); White Blood Count 9.7 X10*3/uL (4.8-10.8)
[2020-12-24 13:24] LABS: Prothrombin Time 12.2 SEC (10.8-13.0)
[2020-12-24 13:26] LABS: Glucose Urine UA NEG (NEG); Leukocyte Esterase Urine NEG (NEG); Nitrite Urine NEG (NEG); PH 6.5 (5.0-8.0); Urine Blood 2+ (NEG); Urine Ketones NEG (NEG); Urine Protein 1+ MG/DL (NEG-TRACE)
[2020-12-24 13:27] LABS: Partial Thromboplastin Time 31.7 SEC (24.1-38.0); Stroke Lab Use COMPLETE
[2020-12-24 13:29] LABS: Appearance Urine CLEAR; Color Urine YELLOW
[2020-12-24 13:40] LABS: WBC Urine 0 /HPF (0-4)
[2020-12-24 13:45] LABS: Alanine Aminotransferase 13 U/L (0-40); Albumin Level 3.9 g/dL (3.5-5.0); Alkaline Phosphatase 63 U/L (39-117); Anion Gap 13 (12-20); Aspartate Amino Transferase 16 U/L (5-37); Bilirubin Direct 0.2 mg/dL (0.0-0.5); Bilirubin Total 0.4 mg/dL (0.0-1.0); Blood Urea Nitrogen 75 mg/dL (9-16); Carbon Dioxide 27 mmol/L (22-29); Chloride 105 mmol/L (96-108); Creatinine Clr Calc Pharmacy 40.4; Estimated Glomerular Filt Rate 44; Glucose Random 96 mg/dL (60-115); Sodium 140 mmol/L (135-145); Total Protein 6.8 g/dL (6.5-8.0)
[2020-12-24 13:45] LABS: Glucose Random 96 mg/dL (60-115)
[2020-12-24 13:51] LABS: Troponin-I High Sensitivity 3.6 ng/L (<3.5-35.0)
--- NOTE | 2020-12-24 13:58 | PC.NURSE ---
Swallow eval performed. Pt displaying no sighs of difficulty swallowing.
--- NOTE | 2020-12-24 14:46 | PC.NURSE ---
CALL PLACED TO [facility] AT DR GARCIA REQUEST @ THIS TIME RN TAKES CALL BACK NUMBER AND SAYS SHE WILL PASS THE MESSAGE ON TO THE
--- NOTE | 2020-12-24 15:11 | MHC.STROKE ---
1230 EMS PRE-NOTIFIED OF STROKE ALERT, RIGHT DROOP, HEMIPARESIS. OVERALL WEAKNESS, DEMENTIA, DISCOVERED AT 1100. UNKNOWN LAST KNOWN WELL, THSI COULD NOT BE VERIFIED. PATIENTS BASELINE DEMENTIA, ANEMIA, THEREFORE NOT A CANDIDATE FOR TPA. HE WAS AWAKE BUT COULD NOT ANSWER ANY QUESTIONS OR FOLLOW ANY COMMANDS, RIGHT ARM DOES NOT MOVE, LEFT ONLY SLIGHT MOVEMENT, VERNA LEGS WEAK AND THEY COULD NOT BE LIFTED OFF THE BED, NIHSS = 25 BUT SOME AREAS ARE UNTESTABLE. I SPOKE WITH ED PHYSICIAN AND HE DID SPEAK WITH THE NEUROLOGIST. IT WAS DISCUSSED THAT HE MAY RECOVER BETTER IN HIS CURRENT LIVING ARRANGEMENT. HE DID PASS THE SWALLOW EXAM. NO ACUTE INTERVENTIONS AT THIS TIME. MOLST FORM DNR, DNI. I WILL CONTINUE TO FOLLOW NEEDED.
[2020-12-24] MEDS: 0.9 % Sodium Chloride 1,000 ML 999 ML IV (15:20)
--- NOTE | 2020-12-24 17:02 | PC.NURSE ---
pt sleeping at this time, in NAD.
[2020-12-24 18:23] VITALS: BP 157/72; PULSE 59; RESP 18; TEMP 35.9; O2SAT 100
== END 2020-12-24 18:20 | disposition home or self-care (01) ==
PROVIDERS: Emergency Provider Emergency Medicine Emergency Medical Services
DX: R29.810 Facial weakness (principal); R41.82 Altered mental status, unspecified; F03.90 Unspecified dementia, unspecified severity, without behavioral disturbance, psychotic disturbance, mood disturbance, and anxiety; M62.81 Muscle weakness (generalized); R07.81 Pleurodynia; Z79.899 Other long term (current) drug therapy; Z86.16 Personal history of COVID-19
CPT/HCPCS: 36415; 70450; 71045; 80048; 80076; 81001; 82550; 82947; 84484; 85025; 85610; 85730; 87324; 87449; 93005; 96360; 99284

== ENCOUNTER 2021-01-02 07:23 | Outpatient (REF) | payer MEDICARE, SELFPAY ==
[2021-01-02 07:54] LABS: MANUAL DIFF FLAG NO
[2021-01-02 08:13] LABS: Basophils Absolute Auto 0.1 X10*3/uL (0.0-0.2); Basophils Percent Auto 0.6 % (0-2); Eosinophils Absolute Auto 0.7 X10*3/uL (0.0-0.4); Eosinophils Percent Auto 8.1 % (0-4); Hematocrit 29.3 % (42-52); Hemoglobin 9.6 g/dl (14.0-18.0); Imm Gran Abs Auto 0.05 X10*3/uL (0.00-0.03); Imm Gran Pct Auto 0.6 % (0.0-0.4); Lymphocytes Absolute Auto 1.8 X10*3/uL (1.2-4.9); Lymphocytes Percent Auto 22.2 % (20-40); Mean Corpuscular HGB Conc 32.8 g/dl (31.0-36.0); Mean Corpuscular Hemoglobin 32.5 pg (27.0-33.0); Mean Corpuscular Volume 99.3 fL (80-98); Mean Platelet Volume 10.4 fL (9.4-12.4); Monocytes Absolute Auto 0.9 X10*3/uL (0.1-1.2); Monocytes Percent Auto 10.8 % (2-11); Neutrophils Absolute Auto 4.7 X10*3/uL (2.0-8.3); Neutrophils Percent Auto 57.7 % (45-73); Platelet Count 230 X10*3/uL (160-400); Red Blood Count 2.95 X10*6/uL (4.60-5.80); Red Cell Distribution Width 12.4 % (11.0-16.0); White Blood Count 8.1 X10*3/uL (4.8-10.8)
[2021-01-06 13:51] LABS: Prot Elec - Albumin 3.7 g/dL (3.8-4.8); Prot Elec - Alpha1 0.3 g/dL (0.2-0.3); Prot Elec - Alpha2 0.9 g/dL (0.5-0.9); Prot Elec - Beta 1 0.4 g/dL (0.4-0.6); Prot Elec - Beta 2 0.4 g/dL (0.2-0.5); Prot Elec - Total Protein 6.7 g/dL (6.1-8.1)
== END 2021-01-02 07:24 | disposition home or self-care (01) ==
LOC: HO.HSH2E 07:23
PROVIDERS: Visit Provider Internal Medicine Endocrinology, Diabetes & Metabolism
DX: I10 Essential (primary) hypertension (principal); D64.9 Anemia, unspecified
CPT/HCPCS: 36415; 84155; 84165; 85025

== ENCOUNTER 2021-01-22 05:40 | Outpatient (REF) | payer MEDICARE, SELFPAY ==
[2021-01-22 08:23] LABS: MANUAL DIFF FLAG NO
[2021-01-22 08:28] LABS: Basophils Absolute Auto 0.1 X10*3/uL (0.0-0.2); Basophils Percent Auto 0.6 % (0-2); Eosinophils Absolute Auto 0.8 X10*3/uL (0.0-0.4); Eosinophils Percent Auto 8.1 % (0-4); Hematocrit 28.4 % (42-52); Hemoglobin 9.3 g/dl (14.0-18.0); Imm Gran Abs Auto 0.04 X10*3/uL (0.00-0.03); Imm Gran Pct Auto 0.4 % (0.0-0.4); Lymphocytes Absolute Auto 2.6 X10*3/uL (1.2-4.9); Lymphocytes Percent Auto 26.5 % (20-40); Mean Corpuscular HGB Conc 32.7 g/dl (31.0-36.0); Mean Corpuscular Hemoglobin 32.1 pg (27.0-33.0); Mean Corpuscular Volume 97.9 fL (80-98); Mean Platelet Volume 10.3 fL (9.4-12.4); Monocytes Absolute Auto 0.9 X10*3/uL (0.1-1.2); Monocytes Percent Auto 9.1 % (2-11); Neutrophils Absolute Auto 5.5 X10*3/uL (2.0-8.3); Neutrophils Percent Auto 55.3 % (45-73); Platelet Count 215 X10*3/uL (160-400); Red Cell Distribution Width 12.1 % (11.0-16.0)
[2021-01-22 09:00] LABS: Blood Urea Nitrogen 46 mg/dL (9-16); Estimated Glomerular Filt Rate > 60
== END 2021-01-22 05:41 | disposition home or self-care (01) ==
LOC: HO.HSH2E 05:40
PROVIDERS: Visit Provider Internal Medicine Endocrinology, Diabetes & Metabolism
DX: D64.9 Anemia, unspecified (principal)
CPT/HCPCS: 36415; 82565; 84520; 85025

== ENCOUNTER 2021-04-29 20:55 | Inpatient (IN) | payer MEDICARE, SELFPAY ==
--- NOTE | ~2021-04-29 | XR_ITS ---
EXAMINATION: XR CHEST CLINICAL INFORMATION: Shortness of breath COMPARISON: 12/24/2020 TECHNIQUE: Frontal view of the chest was obtained. FINDINGS: New patchy ill-defined airspace opacities are seen greatest at the lung bases. No dense focal consolidation. No pleural effusion or pneumothorax. Calcified aortic arch. Normal heart size. Chronic right proximal humeral fracture. XR/XR chest 1V IMPRESSION: New patchy ill-defined airspace opacities concerning for multifocal infection. Viral COVID pneumonitis could give this appearance.
[2021-04-29 21:09] VITALS: BP 131/57; PULSE 77; RESP 18; TEMP 37.1; O2SAT 90; BMI 25.8
--- NOTE | 2021-04-29 21:26 | ED_ITS ---
HPI - SOB/Dyspnea General Chief Complaint: Dyspnea Stated Complaint: FEVER, COUGH Time Seen by Provider: 04/29/21 21:24 Source: EMS and RN notes reviewed Mode of arrival: EMS Limitations: altered mental status History of Present Illness HPI Narrative: Patient with dementia hypertension came from [facility] for dec reased oxygen saturation, cough, low-grade fever decreased oxygen saturation to 82% at room air improved to 90% on 2 L. patient is not on oxygen at [facility]. Patient was doing okay all day today Related Data Previous Rx's Medication Instructions Recorded acetaminophen 325 mg PO Q4H PRN #30 tab 11/28/20 acetaminophen 650 mg PO TID@0800,1300,1999 #30 11/28/20 tab aspirin 81 mg PO DAILY@0900 #30 tab 11/28/20 atenolol 25 mg PO DAILY@0800 #30 tab 11/28/20 atorvastatin 10 mg PO BEDTIME@1999 #30 tab 11/28/20 betamethasone, augmented 1 appl TOPICAL BID #30 g 11/28/20 bisacodyl [Gentle Laxative 10 mg WA DAILY PRN #30 ea 11/28/20 (bisacodyl)] docusate sodium 100 mg PO BID@0900,1700 #30 ml 11/28/20 donepezil 10 mg PO BEDTIME@1999 #30 tab 11/28/20 lisinopril 10 mg PO DAILY@0800 #30 tab 11/28/20 magnesium hydroxide [Milk of 30 ml PO BEDTIME PRN #30 ml 11/28/20 Magnesia] memantine 5 mg PO BID@1000,2200 #30 tab 11/28/20 oxycodone 5 mg PO Q6H PRN #30 tab 11/28/20 polyethylene glycol 3350 17 g PO DAILY #30 ea 11/28/20 sennosides [Senna Lax] 8.6 mg PO DAILY@2100 #30 tab 11/28/20 tamsulosin 0.4 mg PO DAILY@1999 #30 cap 11/28/20 doxycycline monohydrate 100 mg PO BID 7 Days #14 cap 12/12/20 Allergies Allergy/AdvReac Type Severity Reaction Status Date / Time morphine [MORPHINE] Allergy Mild UNKNOWN Verified 12/24/20 12:56 erythromycin base Allergy Unknown UNKNOWN Verified 12/24/20 12:56 [ERYTHROMYCIN BASE] valsartan [VALSARTAN] Allergy Unknown UNKNOWN Verified 12/24/20 12:56 Review of Systems Review of Systems: Yes Unobtainable due to mental status PMFSH Past Medical History Medical History Dementia Social History Social History Alcohol intake: unknown Advance Directives: No Advance Directives Information Provided: No Physical Exam 2 Vital Signs: Vital Signs: Last Vital Signs Temp 98.9 F 04/29/21 22:00 Pulse 78 04/29/21 22:00 Resp 16 04/29/21 22:00 BP 127/60 04/29/21 22:00 Pulse Ox 2 L 04/29/21 22:00 Body Mass Index 25.8 Appearance: Alert. And awake x1 No acute distress. Eyes: PERRLA, No Nystagmus ENT: Pharynx normal. Oral Mucosa moist Neck: Normal inspection. Neck supple. CVS: Normal heart rate and rhythm. Pulses normal. Respiratory: No respiratory distress. Equal air entry bilateral, no wheezing/rhonchi , occasional crackles bilateral bases Abdomen: Soft and nontender. Bowel sounds are present, no mass palpable, no CVA tenderness Skin: Skin warm and dry. Normal skin color. Normal skin turgor. Extremities: No lower extremity edema. No calf tenderness right arm in sling with contracture Neuro: Oriented X 3. No motor deficit. No sensory deficit.No cerebellar signs , cranial nerves II-XII intact MDM - SOB/Dyspnea MDM Narrative Medical decision making narrative: Patient with multifocal pneumonia mostly right base and left base with low-grade fever normal lactic acid level was hypoxic at the [facility]. COVID-19 is negative will admit patient for an pneumonia possible aspiration started on Zosyn Medical Records Attestation: I reviewed the patient's medical records. Lab Data Attestation: I reviewed the patient's lab results. Result diagrams: 04/29/21 21:49 04/29/21 21:49 Labs: Lab Results 04/29/21 04/29/21 04/29/21 Range/Units 21:49 21:49 21:49 WBC 11.8 H (4.8-10.8) X10*3/uL RBC 2.73 L (4.60-5.80) X10*6/uL Hgb 8.8 L (14.0-18.0) g/dl Hct 26.5 L (42-52) % MCV 97.1 (80-98) fL MCH 32.2 (27.0-33.0) pg MCHC 33.2 (31.0-36.0) g/dl RDW 12.5 (11.0-16.0) % Plt Count 217 (160-400) X10*3/uL MPV 9.6 (9.4-12.4) fL Immature Gran % (Auto) 0.3 (0.0-0.4) % Neut % (Auto) 72.9 (45-73) % Lymph % (Auto) 11.9 L (20-40) % [place] % (Auto) 8.5 (2-11) % Eos % (Auto) 6.1 H (0-4) % Baso % (Auto) 0.3 (0-2) % Lymph # (Auto) 1.4 (1.2-4.9) X10*3/uL [place]ower # (Auto) 1.0 (0.1-1.2) X10*3/uL Eos # (Auto) 0.7 H (0.0-0.4) X10*3/uL Baso # (Auto) 0.0 (0.0-0.2) X10*3/uL Abs Immat Gran (auto) 0.04 H (0.00-0.03) X10*3/uL Absolute Neuts (auto) 8.6 H (2.0-8.3) X10*3/uL Absolute Nucleated RBC 0.000 (0.0-0.012) X10*3/uL Nucleated RBC % (auto) 0.0 (0.0-0.2) /100WBC Sodium 141 (135-145) mmol/L Potassium 4.7 (3.3-5.1) mmol/L Chloride 108 (96-108) mmol/L Carbon Dioxide 23 (22-29) mmol/L Anion Gap 15 (12-20) BUN 52 H (9-16) mg/dL Creatinine 1.44 H (0.5-1.4) mg/dL Estim Creat Clear Calc 40.1 Estimated GFR 47 Random Glucose 114 (60-115) mg/dL Lactic Acid 0.8 (0.5-2.0) mmol/L Calcium 8.9 (8.4-10.2) mg/dL Total Bilirubin 0.4 (0.0-1.0) mg/dL Direct Bilirubin 0.2 (0.0-0.5) mg/dL AST 14 (5-37) U/L ALT < 6 (0-40) U/L Alkaline Phosphatase 77 D (39-117) U/L Troponin I High Sens (<3.5-35.0) ng/L B-Natriuretic Peptide (<100) pg/mL Total Protein 6.8 (6.5-8.0) g/dL Albumin 3.9 (3.5-5.0) g/dL COVID-19 (GRACIE) (Negative) COVID-19 Clin Com 04/29/21 04/29/21 04/29/21 Range/Units 21:49 21:49 21:49 WBC (4.8-10.8) X10*3/uL RBC (4.60-5.80) X10*6/uL Hgb (14.0-18.0) g/dl Hct (42-52) % MCV (80-98) fL MCH (27.0-33.0) pg MCHC (31.0-36.0) g/dl RDW (11.0-16.0) % Plt Count (160-400) X10*3/uL MPV (9.4-12.4) fL Immature Gran % (Auto) (0.0-0.4) % Neut % (Auto) (45-73) % Lymph % (Auto) (20-40) % [place] % (Auto) (2-11) % Eos % (Auto) (0-4) % Baso % (Auto) (0-2) % Lymph # (Auto) (1.2-4.9) X10*3/uL [place]ower # (Auto) (0.1-1.2) X10*3/uL Eos # (Auto) (0.0-0.4) X10*3/uL Baso # (Auto) (0.0-0.2) X10*3/uL Abs Immat Gran (auto) (0.00-0.03) X10*3/uL Absolute Neuts (auto) (2.0-8.3) X10*3/uL Absolute Nucleated RBC (0.0-0.012) X10*3/uL Nucleated RBC % (auto) (0.0-0.2) /100WBC Sodium (135-145) mmol/L Potassium (3.3-5.1) mmol/L Chloride (96-108) mmol/L Carbon Dioxide (22-29) mmol/L Anion Gap (12-20) BUN (9-16) mg/dL Creatinine (0.5-1.4) mg/dL Estim Creat Clear Calc Estimated GFR Random Glucose (60-115) mg/dL Lactic Acid (0.5-2.0) mmol/L Calcium (8.4-10.2) mg/dL Total Bilirubin (0.0-1.0) mg/dL Direct Bilirubin (0.0-0.5) mg/dL AST (5-37) U/L ALT (0-40) U/L Alkaline Phosphatase (39-117) U/L Troponin I High Sens 4.4 Cancelled (<3.5-35.0) ng/L B-Natriuretic Peptide 196 H (<100) pg/mL Total Protein (6.5-8.0) g/dL Albumin (3.5-5.0) g/dL COVID-19 (GRACIE) Negative (Negative) COVID-19 Clin Com See Note ECG Data Attestation: I personally reviewed and interpreted this ECG as follows: Interpretation: Normal sinus rhythm with heart rate 81 beats per minute no acute ST T wave changes normal axis no acute ischemia Discharge Plan Discharge Clinical Impression: Pneumonia Qualifiers: Pneumonia type: aspiration pneumonia Aspiration pneumonia type: unspecified Laterality: bilateral Lung location: lower lobe of lung Qualified Code(s): J69.0 - Pneumonitis due to inhalation of food and vomit Dementia Qualifiers: Dementia type: Alzheimer's Alzheimer's disease onset: late-onset Dementia behavioral disturbance: without behavioral disturbance Qualified Code(s): G30.1 - Alzheimer's disease with late onset Patient Disposition: Admitted As Inpatient
--- NOTE | 2021-04-29 21:33 | ECG_ITS ---
Test Reason : DYSPENA Blood Pressure : / mmHG Vent. Rate : 081 BPM Atrial Rate : 088 BPM P-R Int : 000 ms QRS Dur : 080 ms QT Int : 358 ms P-R-T Axes : 000 009 057 degrees QTc Int : 415 ms Artifact in tracing Normal sinus rhythm Likely normal EKG When compared with ECG of 24-DEC-2020 12:51, No significant changes seen Referred By: Dane Arias Electronically Signed By:MAXIMILIAN COELLO
[2021-04-29 22:00] VITALS: BP 127/60; PULSE 78; RESP 16; TEMP 37.2; O2SAT 2
[2021-04-29 22:02] LABS: Basophils Percent Auto 0.3 % (0-2); Eosinophils Absolute Auto 0.7 X10*3/uL (0.0-0.4); Eosinophils Percent Auto 6.1 % (0-4); Hematocrit 26.5 % (42-52); Hemoglobin 8.8 g/dl (14.0-18.0); Imm Gran Abs Auto 0.04 X10*3/uL (0.00-0.03); Imm Gran Pct Auto 0.3 % (0.0-0.4); Lymphocytes Absolute Auto 1.4 X10*3/uL (1.2-4.9); Lymphocytes Percent Auto 11.9 % (20-40); MANUAL DIFF FLAG NO; Mean Corpuscular HGB Conc 33.2 g/dl (31.0-36.0); Mean Corpuscular Hemoglobin 32.2 pg (27.0-33.0); Mean Corpuscular Volume 97.1 fL (80-98); Mean Platelet Volume 9.6 fL (9.4-12.4); Monocytes Percent Auto 8.5 % (2-11); Neutrophils Absolute Auto 8.6 X10*3/uL (2.0-8.3); Neutrophils Percent Auto 72.9 % (45-73); Platelet Count 217 X10*3/uL (160-400); Red Blood Count 2.73 X10*6/uL (4.60-5.80); Red Cell Distribution Width 12.5 % (11.0-16.0); White Blood Count 11.8 X10*3/uL (4.8-10.8)
[2021-04-29 22:18] LABS: COVID-19 Test Negative (Negative); IDNOW Serial# 9DD0AD1C
[2021-04-29 22:22] LABS: Lactic Acid 0.8 mmol/L (0.5-2.0)
[2021-04-29 22:28] LABS: Alanine Aminotransferase < 6 U/L (0-40); Albumin Level 3.9 g/dL (3.5-5.0); Alkaline Phosphatase 77 U/L (39-117); Anion Gap 15 (12-20); Aspartate Amino Transferase 14 U/L (5-37); Bilirubin Direct 0.2 mg/dL (0.0-0.5); Bilirubin Total 0.4 mg/dL (0.0-1.0); Blood Urea Nitrogen 52 mg/dL (9-16); Calcium 8.9 mg/dL (8.4-10.2); Carbon Dioxide 23 mmol/L (22-29); Chloride 108 mmol/L (96-108); Creatinine Clr Calc Pharmacy 40.1; Estimated Glomerular Filt Rate 47; Glucose Random 114 mg/dL (60-115); Potassium 4.7 mmol/L (3.3-5.1); Sodium 141 mmol/L (135-145); Total Protein 6.8 g/dL (6.5-8.0)
[2021-04-29 22:33] LABS: Troponin-I High Sensitivity 4.4 ng/L (<3.5-35.0)
[2021-04-29 22:47] LABS: B Type Natriuretic Peptide 196 pg/mL (<100)
[2021-04-30] VITALS (9 sets, daily range): BP systolic 109–155; BP diastolic 57–81; PULSE 62–78; RESP 14–24; TEMP 36.1–37.7; O2SAT 93–97
[2021-04-30] MEDS: Piperacillin Sodium/Tazobactam 3.375 GM in 0.9 % Sodium Chloride 50 ML IV (00:29)
[2021-04-30] MEDS: Acetaminophen 325 MG TABLET 650 MG PO (02:41)
[2021-04-30] MEDS: Lactated Ringers 1,000 ML 100 ML IVCONT (02:53)
[2021-04-30] MEDS: Heparin Sodium,Porcine 5,000 UNIT/ML VIAL 5000 UNIT SUBCUT ×2 (03:35→16:43)
[2021-04-30] MEDS: 0.9 % Sodium Chloride Flush 3 ML SYRINGE IVFLUSH ×4 (03:36→23:43)
[2021-04-30] MEDS: cefTRIAXone sodium 1 GM in 0.9 % Sodium Chloride 50 ML IV (03:58)
--- NOTE | 2021-04-30 04:00 | PC.NURSE ---
This RN calling pharmacy regarding order for Rocephin due to allergy. Per pharmacy, okay to give. LR paused, Rocephin infusing per MAR.
--- NOTE | 2021-04-30 04:40 | PC.NURSE ---
Report received from Bob, this RN resuming care. Pt found sitting upright in bed, awake, eyes tracking this RN throughout room. Pt unable to communicate verbally but yells at times when needing something. VSS, pt refusing to wear NC, maintaining an O2 sat of 93% on RA. LR infusing but found to be hanging wide open, LR placed on pump, running @ 100 ml/hr per MAR. Continue to monitor.
--- NOTE | 2021-04-30 04:43 | P.HPHOSP_ITS ---
History of Present Illness Date of Service: 04/30/21 Chief Complaint: Hypoxia 85-year-old male with past medical history of dementia, HTN, BPH the hypoxia. Patient is nonverbal at baseline and unable to give any history. Therefore history is obtained from EMR as well as ED physician. It appears that patient was noted to be hypoxic at the correction with an O2 level of 82% on room air. Patient was placed on O2 2 L with O2 levels increasing to 90%. Patient apparently also had a low-grade fever of 100. Unable to obtain any review of system is patient is nonverbal but does not appear in any distress. On arrival to the ED patient's vitals were significant for temp of 98.7?, heart rate of 77, respiratory rate of 18, blood pressure of 131/57, satting 90% on room air. Patient currently on 2 L of oxygen satting 96%. Labs are significant forWBC count of 11.8, hemoglobin of 8.8 which is close to his baseline, BUN of 52, creatinine of 1.44 with a baseline around 1.09 in January, BNP of 196 COVID-19 negative. Chest x-ray shows new patchy ill-defined airspace opacities concerning for multifocal pneumonia. Viral COVID pneumonitis can give this appearance. Review of Systems Review of Systems: Yes all other systems are reviewed and are negative [facility] Medical History (Updated 04/30/21 @ 04:55 by Justin Becker MD) BPH (benign prostatic hyperplasia) Dementia HTN (hypertension) Neuropathy Social History Alcohol intake: unknown Advance Directives: No Advance Directives Information Provided: No Meds Allergies Allergy/AdvReac Type Severity Reaction Status Date / Time morphine [MORPHINE] Allergy Mild UNKNOWN Verified 12/24/20 12:56 erythromycin base Allergy Unknown UNKNOWN Verified 12/24/20 12:56 [ERYTHROMYCIN BASE] valsartan [VALSARTAN] Allergy Unknown UNKNOWN Verified 12/24/20 12:56 Active Medications: Current Medications Generic Name Dose Route Start Last Admin Trade Name Freq PRN Reason Stop Dose Admin Acetaminophen 325 mg 04/30/21 02:39 Acetaminophen 325 Mg Tablet PO Q4H PRN Pain, Mild (Pain Scale 1-3) Amlodipine Besylate 5 mg 04/30/21 09:00 Amlodipine Besylate 5 Mg Tablet PO DAILY VLADIMIR Protocol Aspirin 81 mg 04/30/21 09:00 Aspirin 81 Mg Tab.Chew PO DAILY@0900 [facility] Atenolol 25 mg 04/30/21 08:00 Atenolol 25 Mg Tablet PO DAILY@0800 [facility] Protocol Atorvastatin Calcium 10 mg 04/30/21 20:00 Atorvastatin Calcium 10 Mg Tablet PO BEDTIME@2000 [facility] Docusate Sodium 100 mg 04/30/21 02:39 Docusate Sodium 100 Mg Capsule PO DAILY PRN Constipation Heparin Sodium (Porcine) 5,000 unit 04/30/21 03:00 04/30/21 03:35 Heparin Sodium,Porcine 5,000 Unit/Ml Vial SUBCUT 5,000 unit Q12H [facility] Administration Lactated Ringer's 1,000 mls @ 100 mls/hr 04/30/21 02:21 04/30/21 02:53 Lr IVCONT 100 mls/hr .Q10H [facility] Administration Ceftriaxone Sodium 1 gm/ 50 mls @ 100 mls/hr 04/30/21 03:00 04/30/21 04:40 Sodium Chloride IV Infused Q24H [facility] Infusion Azithromycin 500 mg/ Sodium 250 mls @ 125 mls/hr 04/30/21 02:39 04/30/21 03:21 Chloride IV Not Given Q24H [facility] Ondansetron HCl 4 mg 04/30/21 02:21 Ondansetron Hcl 4 Mg/2 Ml Vial IVPUSH Q8H PRN Nausea and Vomiting Oxycodone HCl 5 mg 04/30/21 02:39 Oxycodone Hcl Immed Release 5 Mg Tablet PO Q6H PRN Pain, Severe (Pain Scale 7-10) Sertraline HCl 50 mg 04/30/21 09:00 Sertraline Hcl 50 Mg Tablet OG-TUBE DAILY [facility] Sodium Chloride 3 ml 04/30/21 02:39 04/30/21 03:36 0.9 % Sodium Chloride Flush 3 Ml Syringe IVFLUSH 3 ml QSHIFT [facility] Administration Tamsulosin HCl 0.4 mg 04/30/21 17:30 Tamsulosin Hcl 0.4 Mg Capsule PO DAILY@1730 [facility] Home Medications Medication Instructions Recorded Confirmed Last Taken Type amlodipine 5 mg PO DAILY 04/30/21 04/30/21 Unknown History sertraline 50 mg DAILY 04/30/21 04/30/21 Unknown History Physical Exam Vital Signs and Narrative: Vital Signs: Last Vital Signs Temp 100 F 04/30/21 02:07 Pulse 74 04/30/21 04:00 Resp 16 04/30/21 04:00 BP 123/81 04/30/21 04:00 Pulse Ox 93 04/30/21 04:00 Body Mass Index 25.8 Const: Other: Awake alert, but unable to assess orientation General: cooperative and no acute distress Eyes: General: appearance normal, both eyes and all related structures Resp: Effort & Inspection: normal respiratory effort Cardio: Rate: regular rate Rhythm: regular rhythm GI: Palpation (GI): Soft to palpation Auscultation: normal bowel sounds Skin: General skin exam: no rashes or lesions noted Neuro: Cognition (Neuro): normal cognition Extrem: General: Yes normal to inspection and Yes no pedal edema Results Labs CBC and Chem 7: 04/29/21 21:49 04/29/21 21:49 Labs: Laboratory Results - last 24 hr 04/29/21 04/29/21 04/29/21 21:49 21:49 21:49 MCV 97.1 MCH 32.2 MCHC 33.2 RDW 12.5 Plt Count 217 MPV 9.6 Immature Gran % (Auto) 0.3 Neut % (Auto) 72.9 Lymph % (Auto) 11.9 L [place] % (Auto) 8.5 Eos % (Auto) 6.1 H Baso % (Auto) 0.3 Lymph # (Auto) 1.4 [place] # (Auto) 1.0 Eos # (Auto) 0.7 H Baso # (Auto) 0.0 Abs Immat Gran (auto) 0.04 H Absolute Neuts (auto) 8.6 H Absolute Nucleated RBC 0.000 Nucleated RBC % (auto) 0.0 Anion Gap 15 Estim Creat Clear Calc 40.1 Estimated GFR 47 Random Glucose 114 Lactic Acid 0.8 Calcium 8.9 Total Bilirubin 0.4 Direct Bilirubin 0.2 AST 14 ALT < 6 Alkaline Phosphatase 77 D Troponin I High Sens B-Natriuretic Peptide Total Protein 6.8 Albumin 3.9 COVID-19 (GRACIE) COVID-19 Clin Com 04/29/21 04/29/21 04/29/21 21:49 21:49 21:49 MCV MCH MCHC RDW Plt Count MPV Immature Gran % (Auto) Neut % (Auto) Lymph % (Auto) [place] % (Auto) Eos % (Auto) Baso % (Auto) Lymph # (Auto) [place] # (Auto) Eos # (Auto) Baso # (Auto) Abs Immat Gran (auto) Absolute Neuts (auto) Absolute Nucleated RBC Nucleated RBC % (auto) Anion Gap Estim Creat Clear Calc Estimated GFR Random Glucose Lactic Acid Calcium Total Bilirubin Direct Bilirubin AST ALT Alkaline Phosphatase Troponin I High Sens 4.4 Cancelled B-Natriuretic Peptide 196 H Total Protein Albumin COVID-19 (GRACIE) Negative COVID-19 Clin Com See Note Imaging Radiologist's Impressions: Impressions Chest X-Ray 04/29/21 21:33 IMPRESSION: New patchy ill-defined airspace opacities concerning for multifocal infection. Viral COVID pneumonitis could give this appearance. Assessment and Plan (1) Acute respiratory failure with hypoxia: Status: Acute (2) Pneumonia: Qualifiers: Aspiration pneumonia type: unspecified Laterality: bilateral Lung location: lower lobe of lung Pneumonia type: aspiration pneumonia Qualified Code(s): J69.0 - Pneumonitis due to inhalation of food and vomit Status: Acute (3) KRISTINA (acute kidney injury): Status: Acute Sin 85-year-old male with past medical history of dementia, CVA who presents to the hospital in hypoxic respiratory failure found to have was focal pneumonia # acute hypoxic respiratory failure - secondary to pneumonia - currently on 2 L of oxygen satting 96% - will treat pneumonia with IV antibiotics HTN - titrate O2 off as tolerated # pneumonia - viral versus bacterial - has COVID-19 imaging characteristics - COVID-19 PCR negative - at this time will treat him for community-acquired pneumonia with IV antibiotics - will obtain strep and Legionella urine antigens - follow blood cultures # KRISTINA - most likely prerenal in the setting of acute infection - will start him on IV fluids - follow BMP # hypertension -stable - continue amlodipine and atenolol # BPH - continue tamsulosin DVT prophylaxis: Heparin subQ
--- NOTE | 2021-04-30 05:47 | PC.NURSE ---
UA obtained via straight cath by this RN. Pt tolerating procedure well. 300 ml of UO noted. Pt found to be incontinent of urine and a small amount of stool. Pt provided with harini care and a complete bed change. Labs obtained by roof technician. VSS, RA O2 sat 95%. Pt resting in bed, lights dim for comfort. Continue to monitor.
[2021-04-30 05:49] LABS: MANUAL DIFF FLAG NO
[2021-04-30 05:51] LABS: Basophils Percent Auto 0.2 % (0-2); Eosinophils Absolute Auto 0.5 X10*3/uL (0.0-0.4); Hemoglobin 8.6 g/dl (14.0-18.0); Imm Gran Abs Auto 0.08 X10*3/uL (0.00-0.03); Imm Gran Pct Auto 0.6 % (0.0-0.4); Lymphocytes Absolute Auto 1.2 X10*3/uL (1.2-4.9); Lymphocytes Percent Auto 9.3 % (20-40); Mean Corpuscular HGB Conc 33.1 g/dl (31.0-36.0); Mean Corpuscular Hemoglobin 31.7 pg (27.0-33.0); Mean Corpuscular Volume 95.9 fL (80-98); Mean Platelet Volume 9.1 fL (9.4-12.4); Monocytes Percent Auto 7.4 % (2-11); Neutrophils Absolute Auto 10.5 X10*3/uL (2.0-8.3); Neutrophils Percent Auto 78.5 % (45-73); Platelet Count 214 X10*3/uL (160-400); Red Blood Count 2.71 X10*6/uL (4.60-5.80); Red Cell Distribution Width 12.4 % (11.0-16.0); White Blood Count 13.3 X10*3/uL (4.8-10.8)
[2021-04-30] MEDS: levoFLOXacin/D5W 750 MG/150 ML PIGGYBACK 100 MG IV (06:09)
--- NOTE | 2021-04-30 06:10 | PC.NURSE ---
Levofloxacin infusing per MAR.
--- NOTE | 2021-04-30 06:21 | PC.NURSE ---
Report given to CIRO Gibbs.
--- NOTE | 2021-04-30 06:23 | PC.NURSE ---
Per nursing supervisor functional testing, plan for transport to floor after 7 am.
[2021-04-30 06:26] LABS: Anion Gap 14 (12-20); Blood Urea Nitrogen 46 mg/dL (9-16); Calcium 8.9 mg/dL (8.4-10.2); Carbon Dioxide 22 mmol/L (22-29); Chloride 109 mmol/L (96-108); Creatinine Clr Calc Pharmacy 42.8; Estimated Glomerular Filt Rate 50; Glucose Random 116 mg/dL (60-115); Potassium 4.6 mmol/L (3.3-5.1); Sodium 140 mmol/L (135-145)
[2021-04-30 06:31] LABS: Glucose Urine UA NEG (NEG); Leukocyte Esterase Urine NEG (NEG); Nitrite Urine NEG (NEG); Specific Gravity - Urine 1.015 (1.005-1.025); Urine Blood NEG (NEG); Urine Ketones NEG (NEG); Urine Protein 2+ MG/DL (NEG-TRACE)
[2021-04-30 06:33] LABS: Appearance Urine CLEAR; Color Urine YELLOW
[2021-04-30 06:41] LABS: RBC Urine 0 /HPF (0); Squamous Epithelial Cell Urine TRACE /LPF; WBC Urine 0-2 /HPF (0-4)
--- NOTE | 2021-04-30 07:20 | PC.NURSE ---
Patient moved to room 358 via stretcher.
[2021-04-30] MEDS: Sertraline HCL 50 MG TABLET OG-TUBE (08:09)
[2021-04-30] MEDS: atenoloL 25 MG TABLET PO (08:09)
[2021-04-30] MEDS: amLODIPine Besylate 5 MG TABLET PO (08:09)
[2021-04-30] MEDS: Aspirin 81 MG TAB.CHEW PO (08:09)
--- NOTE | 2021-04-30 12:38 | MHC.CM.PN ---
PATIENT IS GOING TO REMAIN TODAY. WBC TRENDING UPWARDS. JHON MONTIEL ) OF [facility] IS AWARE. RN AND UNIT AWARE.
--- NOTE | 2021-04-30 14:04 | P.PNIM_ITS ---
Subjective Subjective Date of Service: 04/30/21 Interval History: Patient answering no to cough, and no to pain, mostly nonverbal no other acute issues overnight. Unable to obtain review of systems since patient is nonverbal Physical Exam Vital Signs: Vital Signs: Last Vital Signs Temp 96.9 F 04/30/21 11:16 Pulse 66 04/30/21 11:16 Resp 16 04/30/21 11:16 BP 109/57 L 04/30/21 11:16 Pulse Ox 96 04/30/21 11:16 Body Mass Index 25.8 General resting comfortably no acute distress Neck is supple, no JVD Lungs clear to auscultation, no wheeze, no rhonchi no respiratory distress Heart regular rate rhythm Abdomen to be soft nontender bowel sounds are audible Extremities no pitting edema Skin no rash Objective Data Current Medications Generic Name Dose Route Start Last Admin Trade Name Freq PRN Reason Stop Dose Admin Acetaminophen 325 mg 04/30/21 02:39 Acetaminophen 325 Mg Tablet PO Q4H PRN Pain, Mild (Pain Scale 1-3) Amlodipine Besylate 5 mg 04/30/21 09:00 04/30/21 08:09 Amlodipine Besylate 5 Mg Tablet PO 5 mg DAILY [facility] Administration Protocol Aspirin 81 mg 04/30/21 09:00 04/30/21 08:09 Aspirin 81 Mg Tab.Chew PO 81 mg DAILY@0900 [facility] Administration Atenolol 25 mg 04/30/21 08:00 04/30/21 08:09 Atenolol 25 Mg Tablet PO 25 mg DAILY@0800 [facility] Administration Protocol Atorvastatin Calcium 10 mg 04/30/21 20:00 Atorvastatin Calcium 10 Mg Tablet PO BEDTIME@2000 [facility] Docusate Sodium 100 mg 04/30/21 02:39 Docusate Sodium 100 Mg Capsule PO DAILY PRN Constipation Heparin Sodium (Porcine) 5,000 unit 04/30/21 03:00 04/30/21 03:35 Heparin Sodium,Porcine 5,000 Unit/Ml Vial SUBCUT 5,000 unit Q12H [facility] Administration Levofloxacin 750 mg in 150 mls @ 100 mls/hr 04/30/21 05:15 04/30/21 07:51 Levaquin IV Infused Q48H VLADIMIR Infusion Ondansetron HCl 4 mg 04/30/21 02:21 Ondansetron Hcl 4 Mg/2 Ml Vial IVPUSH Q8H PRN Nausea and Vomiting Oxycodone HCl 5 mg 04/30/21 02:39 Oxycodone Hcl Immed Release 5 Mg Tablet PO Q6H PRN Pain, Severe (Pain Scale 7-10) Sertraline HCl 50 mg 04/30/21 09:00 04/30/21 08:09 Sertraline Hcl 50 Mg Tablet OG-TUBE 50 mg DAILY [facility] Administration Sodium Chloride 3 ml 04/30/21 02:39 04/30/21 08:09 0.9 % Sodium Chloride Flush 3 Ml Syringe IVFLUSH 3 ml QSHIFT [facility] Administration Tamsulosin HCl 0.4 mg 04/30/21 17:30 Tamsulosin Hcl 0.4 Mg Capsule PO DAILY@1730 [facility] Labs CBC & Chem 7: 04/30/21 05:41 04/30/21 05:41 Labs: Laboratory Results - last 24 hr 04/29/21 04/29/21 04/29/21 21:49 21:49 21:49 WBC 11.8 H RBC 2.73 L Hgb 8.8 L Hct 26.5 L MCV 97.1 MCH 32.2 MCHC 33.2 RDW 12.5 Plt Count 217 MPV 9.6 Immature Gran % (Auto) 0.3 Neut % (Auto) 72.9 Lymph % (Auto) 11.9 L [place] % (Auto) 8.5 Eos % (Auto) 6.1 H Baso % (Auto) 0.3 Lymph # (Auto) 1.4 [place] # (Auto) 1.0 Eos # (Auto) 0.7 H Baso # (Auto) 0.0 Abs Immat Gran (auto) 0.04 H Absolute Neuts (auto) 8.6 H Absolute Nucleated RBC 0.000 Nucleated RBC % (auto) 0.0 Sodium 141 Potassium 4.7 Chloride 108 Carbon Dioxide 23 Anion Gap 15 BUN 52 H Creatinine 1.44 H Estim Creat Clear Calc 40.1 Estimated GFR 47 Random Glucose 114 Lactic Acid 0.8 Calcium 8.9 Total Bilirubin 0.4 Direct Bilirubin 0.2 AST 14 ALT < 6 Alkaline Phosphatase 77 D Troponin I High Sens B-Natriuretic Peptide Total Protein 6.8 Albumin 3.9 Urine Color Urine Appearance Urine pH Ur Specific Lily Urine Protein Urine Glucose (UA) Urine Ketones Urine Blood Urine Nitrite Ur Leukocyte Esterase Urine RBC Urine WBC Ur Squamous Epith Cells Urine Bacteria COVID-19 (GRACIE) COVID-19 Clin Com 04/29/21 04/29/21 04/29/21 21:49 21:49 21:49 WBC RBC Hgb Hct MCV MCH MCHC RDW Plt Count MPV Immature Gran % (Auto) Neut % (Auto) Lymph % (Auto) [place] % (Auto) Eos % (Auto) Baso % (Auto) Lymph # (Auto) [place] # (Auto) Eos # (Auto) Baso # (Auto) Abs Immat Gran (auto) Absolute Neuts (auto) Absolute Nucleated RBC Nucleated RBC % (auto) Sodium Potassium Chloride Carbon Dioxide Anion Gap BUN Creatinine Estim Creat Clear Calc Estimated GFR Random Glucose Lactic Acid Calcium Total Bilirubin Direct Bilirubin AST ALT Alkaline Phosphatase Troponin I High Sens 4.4 Cancelled B-Natriuretic Peptide 196 H Total Protein Albumin Urine Color Urine Appearance Urine pH Ur Specific Lily Urine Protein Urine Glucose (UA) Urine Ketones Urine Blood Urine Nitrite Ur Leukocyte Esterase Urine RBC Urine WBC Ur Squamous Epith Cells Urine Bacteria COVID-19 (GRACIE) Negative COVID-19 Clin Com See Note 04/30/21 04/30/21 04/30/21 05:41 05:41 05:41 WBC 13.3 H RBC 2.71 L Hgb 8.6 L Hct 26.0 L MCV 95.9 MCH 31.7 MCHC 33.1 RDW 12.4 Plt Count 214 MPV 9.1 L Immature Gran % (Auto) 0.6 H Neut % (Auto) 78.5 H Lymph % (Auto) 9.3 L [place] % (Auto) 7.4 Eos % (Auto) 4.0 Baso % (Auto) 0.2 Lymph # (Auto) 1.2 [place] # (Auto) 1.0 Eos # (Auto) 0.5 H Baso # (Auto) 0.0 Abs Immat Gran (auto) 0.08 H Absolute Neuts (auto) 10.5 H Absolute Nucleated RBC 0.000 Nucleated RBC % (auto) 0.0 Sodium 140 Potassium 4.6 Chloride 109 H Carbon Dioxide 22 Anion Gap 14 BUN 46 H Creatinine 1.35 Estim Creat Clear Calc 42.8 Estimated GFR 50 Random Glucose 116 H Lactic Acid Calcium 8.9 Total Bilirubin Direct Bilirubin AST ALT Alkaline Phosphatase Troponin I High Sens B-Natriuretic Peptide Total Protein Albumin Urine Color YELLOW Urine Appearance CLEAR Urine pH 6.0 Ur Specific Lily 1.015 Urine Protein 2+ H Urine Glucose (UA) NEG Urine Ketones NEG Urine Blood NEG Urine Nitrite NEG Ur Leukocyte Esterase NEG Urine RBC 0 Urine WBC 0-2 Ur Squamous Epith Cells TRACE Urine Bacteria NONE COVID-19 (GRACIE) COVID-19 Clin Com Quality Stroke Does the patient have a stroke diagnosis?: No VTE Prior VTE?: No VTE Risk Level:: Medical - moderate - high VTE Device Contraindication: N/A - Device Ordered VTE Drug Contraindication: N/A - Med Ordered Assessment and Plan (1) Acute respiratory failure with hypoxia: Status: Acute (2) Pneumonia: Status: Acute (3) Dementia: Status: Acute (4) KRISTINA (acute kidney injury): Status: Acute Assessment and Plan: 85-year-old male with past medical history of dementia, CVA who presents to the hospital in hypoxic respiratory failure found to have focal pneumonia # acute hypoxic respiratory failure secondary to pneumonia - no acute issues overnight currently oxygenation 97% on room air , on IV Levaquin day 2 , COVID-19 negative, strep and Legionella antigen pending, blood cultures x2 pending. [facility], if remains stable and blood cultures are negative. # KRISTINA - most likely prerenal in the setting of acute infection, creatinine normalized will DC IV fluid and push by mouth intake follow BMP # hypertension -stable continue amlodipine and atenolol # BPH - continue tamsulosin DVT prophylaxis: Heparin subQ
[2021-04-30] MEDS: Tamsulosin HCL 0.4 MG CAPSULE PO (16:44)
[2021-04-30] MEDS: Atorvastatin Calcium 10 MG TABLET PO (20:19)
[2021-05-01] MEDS: Heparin Sodium,Porcine 5,000 UNIT/ML VIAL 5000 UNIT SUBCUT (03:08)
[2021-05-01 03:30] VITALS: BP 168/67; PULSE 68; RESP 17; TEMP 36.3; O2SAT 97
[2021-05-01 06:59] LABS: MANUAL DIFF FLAG NO
[2021-05-01 07:07] LABS: Basophils Percent Auto 0.3 % (0-2); Eosinophils Absolute Auto 0.5 X10*3/uL (0.0-0.4); Eosinophils Percent Auto 6.2 % (0-4); Hematocrit 24.1 % (42-52); Hemoglobin 7.9 g/dl (14.0-18.0); Imm Gran Abs Auto 0.03 X10*3/uL (0.00-0.03); Imm Gran Pct Auto 0.4 % (0.0-0.4); Lymphocytes Absolute Auto 1.3 X10*3/uL (1.2-4.9); Lymphocytes Percent Auto 16.9 % (20-40); Mean Corpuscular HGB Conc 32.8 g/dl (31.0-36.0); Mean Corpuscular Hemoglobin 31.6 pg (27.0-33.0); Mean Corpuscular Volume 96.4 fL (80-98); Mean Platelet Volume 9.5 fL (9.4-12.4); Monocytes Absolute Auto 0.8 X10*3/uL (0.1-1.2); Monocytes Percent Auto 9.7 % (2-11); Neutrophils Absolute Auto 5.1 X10*3/uL (2.0-8.3); Neutrophils Percent Auto 66.5 % (45-73); Platelet Count 205 X10*3/uL (160-400); Red Cell Distribution Width 12.2 % (11.0-16.0); White Blood Count 7.7 X10*3/uL (4.8-10.8)
[2021-05-01 07:33] LABS: Anion Gap 15 (12-20); Blood Urea Nitrogen 39 mg/dL (9-16); Calcium 8.8 mg/dL (8.4-10.2); Carbon Dioxide 21 mmol/L (22-29); Chloride 109 mmol/L (96-108); Creatinine Clr Calc Pharmacy 47.7; Estimated Glomerular Filt Rate 57; Glucose Random 92 mg/dL (60-115); Potassium 4.5 mmol/L (3.3-5.1); Sodium 140 mmol/L (135-145)
[2021-05-01 07:47] VITALS: BP 150/73; PULSE 74; RESP 18; TEMP 36.5; O2SAT 93
[2021-05-01] MEDS: atenoloL 25 MG TABLET PO (09:37)
[2021-05-01] MEDS: 0.9 % Sodium Chloride Flush 3 ML SYRINGE IVFLUSH (09:37)
[2021-05-01] MEDS: Sertraline HCL 50 MG TABLET OG-TUBE (09:38)
[2021-05-01] MEDS: Aspirin 81 MG TAB.CHEW PO (09:38)
[2021-05-01] MEDS: levoFLOXacin 250 MG TABLET PO (09:38)
[2021-05-01] MEDS: amLODIPine Besylate 5 MG TABLET PO (09:38)
[2021-05-01 11:12] VITALS: BP 131/59; PULSE 76; RESP 18; TEMP 36.3; O2SAT 96
--- NOTE | 2021-05-01 11:43 | MHC.INPTTRAN ---
known to you. Has been brando diet. Assist with all ADL's Incont urine, Heels red left > right. skin prep applied and elevated on pillow takes meds whole in applesauce. Can be resistive to care at times. Vitals stable. Thanks.
[2021-05-01 11:46] LABS: Hematocrit 23.9 % (42-52); Hemoglobin 7.9 g/dl (14.0-18.0)
--- NOTE | 2021-05-01 11:55 | MHC.CM.PN ---
PATIENT IS RETURNING TO [facility] TODAY. [facility] SCHEDULED FOR 1400 [facility] ORDER [facility]. DC SUMMARY TO BE FAXED TO MARIO MONTIEL AT [phone]. IMM 04/30 IN CHART.
--- NOTE | 2021-05-01 12:21 | P.DS_ITS ---
DS: Providers Provider Date of Service: 05/01/21 Date of admission: 04/29/21 23:54 Primary care physician: Christophe Lam MD DS: Diagnosis Discharge Diagnosis (1) Acute respiratory failure with hypoxia: Status: Acute (2) Pneumonia: Status: Acute (3) Dementia: Status: Acute (4) KRISTINA (acute kidney injury): Status: Acute DS: Medications Discharge Medications Home Medications: Home Medications Medication Instructions Recorded Confirmed amlodipine 5 mg PO DAILY 04/30/21 04/30/21 sertraline 50 mg DAILY 04/30/21 04/30/21 Previous Rx's Medication Instructions Recorded acetaminophen 325 mg PO Q4H PRN #30 tab 11/28/20 acetaminophen 650 mg PO TID@0800,1300,1999 #30 11/28/20 tab aspirin 81 mg PO DAILY@0900 #30 tab 11/28/20 atenolol 25 mg PO DAILY@0800 #30 tab 11/28/20 atorvastatin 10 mg PO BEDTIME@1999 #30 tab 11/28/20 oxycodone 5 mg PO Q6H PRN #30 tab 11/28/20 tamsulosin 0.4 mg PO DAILY@1999 #30 cap 11/28/20 levofloxacin 250 mg PO Q24H #5 tab 05/01/21 DS: Summary Hospital Course Hospital Course: History of present illness Chief Complaint: Hypoxia 85-year-old male with past medical history of dementia, HTN, BPH the hypoxia. Patient is nonverbal at baseline and unable to give any history. Therefore history is obtained from EMR as well as ED physician. It appears that patient was noted to be hypoxic at the alf with an O2 level of 82% on room air. Patient was placed on O2 2 L with O2 levels increasing to 90%. Patient apparently also had a low-grade fever of 100. Unable to obtain any review of system is patient is nonverbal but does not appear in any distress. On arrival to the ED patient's vitals were significant for temp of 98.7?, heart rate of 77, respiratory rate of 18, blood pressure of 131/57, satting 90% on room air. Patient currently on 2 L of oxygen satting 96%. Labs are significant forWBC count of 11.8, hemoglobin of 8.8 which is close to his baseline, BUN of 52, creatinine of 1.44 with a baseline around 1.09 in March , BNP of 196 COVID-19 negative. Chest x-ray shows new patchy ill-defined airspace opacities concerning for multifocal pneumonia. Viral COVID pneumonitis can give this appearance. Hospital course 85-year-old male with past medical history of dementia, CVA who presents to the hospital in hypoxic respiratory failure found to have focal pneumonia, patient treated with IV Levaquin, COVID-19 negative, strep and Legionella antigen remains pending, blood cultures x2 showed no growth, WBC normalized, no fevers, patient oxygenation improved to 97% on room air patient is being [facility] by mouth Levaquin to finish a total 7 day course of treatment. Patient also noted to have acute renal failure likely prerenal in the setting of poor by mouth intake and acute infection patient was treated aggressively with IV fluid renal function normalized however patient noted to have drop in hematocrit likely dilutional no active GI bleed is noted, recent B12, folate and ferritin are in normal range therefore recommend to have repeat hematocrit next week and to follow stool guaiacs, patient is on aspirin, if noted to have GI bleed or further drop in hematocrit then can discontinue aspirin, will place patient prophylactically on Prilosec Will continue all other home medications as before. Time Spent with Patient Time attestation: Total time spent providing and/or coordinating discharge services: Discharge coordination time: Greater than 30 minutes Quality: Stroke Does the patient have a stroke diagnosis?: No Physical Exam Vital Signs: Vital Signs: Last Vital Signs Temp 97.3 F 05/01/21 11:12 Pulse 76 05/01/21 11:12 Resp 18 05/01/21 11:12 BP 131/59 L 05/01/21 11:12 Pulse Ox 96 05/01/21 11:12 Body Mass Index 25.8 General resting comfortably no acute distress Neck is supple, no JVD Lungs clear to auscultation, no wheeze, no rhonchi no respiratory distress Heart regular rate rhythm Abdomen to be soft nontender bowel sounds are audible Extremities no pitting edema Skin bilateral heel noted to be red and boggy left greater than right, no open sores DS: Data Data Completed and Pending Labs on day of discharge: Laboratory Results - last 24 hr 05/01/21 05/01/21 05/01/21 06:27 06:28 11:28 WBC 7.7 RBC 2.50 L Hgb 7.9 L 7.9 L Hct 24.1 L 23.9 L MCV 96.4 MCH 31.6 MCHC 32.8 RDW 12.2 Plt Count 205 MPV 9.5 Immature Gran % (Auto) 0.4 Neut % (Auto) 66.5 Lymph % (Auto) 16.9 L Jenkins % (Auto) 9.7 Eos % (Auto) 6.2 H Baso % (Auto) 0.3 Lymph # (Auto) 1.3 Jenkins # (Auto) 0.8 Eos # (Auto) 0.5 H Baso # (Auto) 0.0 Abs Immat Gran (auto) 0.03 Absolute Neuts (auto) 5.1 Absolute Nucleated RBC 0.000 Nucleated RBC % (auto) 0.0 Sodium 140 Potassium 4.5 Chloride 109 H Carbon Dioxide 21 L Anion Gap 15 BUN 39 H Creatinine 1.21 Estim Creat Clear Calc 47.7 Estimated GFR 57 Random Glucose 92 Calcium 8.8 Preliminary micro results at discharge 04/29/21 21:49 Blood Culture - Preliminary Blood - Venous No growth after 24 hours. 04/29/21 21:49 Blood Culture - Preliminary Blood - Venous No growth after 24 hours. Discharge Plan Discharge Patient Disposition: [facility] Discharge Diagnosis: Acute hypoxic respiratory failure secondary to pneumonia Acute renal failure Chronic anemia Referrals: [facility] [Outside] - 1 Week Christophe Lam MD [Primary Care Provider] - 1 Week Discharge Medications: New levofloxacin 250 mg Tablet 250 mg PO Q24H Qty: 5 RF: 0 Continued acetaminophen 325 mg Tablet 650 mg PO TID@0800,1300,1999 Qty: 30 RF: 0 acetaminophen 325 mg Tablet 325 mg PO Q4H PRN (Reason: Pain, Mild (Pain Scale 1-3)) Qty: 30 RF: 0 atorvastatin 10 mg Tablet 10 mg PO BEDTIME@1999 Qty: 30 RF: 0 atenolol 25 mg Tablet 25 mg PO DAILY@0800 Qty: 30 RF: 0 tamsulosin 0.4 mg Capsule 0.4 mg PO DAILY@1999 Qty: 30 RF: 0 aspirin 81 mg Tablet,Chewable 81 mg PO DAILY@0900 Qty: 30 RF: 0 oxycodone 5 mg Tablet 5 mg PO Q6H PRN (Reason: Pain, Severe (Pain Scale 7-10)) Qty: 30 RF: 0 amlodipine 5 mg Tablet 5 mg PO DAILY RF: 0 sertraline 50 mg Tablet 50 mg DAILY RF: 0 Discharge Orders: Discharge Order (Routine); Ordered 05/01/21 Ordered By: Brandie Interiano Diet: advance to usual diet Activity on Discharge: As tolerated Stand Alone Forms: Patient Portal Discharge page Care Plan Goals: Acute hypoxic respiratory failure due to pneumonia, oxygen is stable continue Levaquin for 5 more days Acute on chronic anemia likely dilutional no active GI bleed noted, normal B12 folate and ferritin in the past Recommend repeat CBC early next week, follow stool guaiac and hold aspirin if noted to have GI bleed Health Concerns: Pneumonia Dementia Acute on chronic anemia Continue antibiotics, and follow CBC Plan of Treatment: Outpatient follow-up with primary care physician in 1 week Assessment: As above
[2021-05-03 07:37] LABS: Strep Pneumo Ag urine Not Detected (Not Detected)
[2021-05-08 08:37] LABS: Legionella Ag Urine Not Detected (Not Detected)
== END 2021-05-01 14:04 | disposition skilled nursing facility (03) | DRG 193 ==
LOC: HO.ED 21:30 → HO.EDOVER 04-30 00:11 → HO.S3 04-30 06:00
PROVIDERS: Admitting Provider Internal Medicine; Emergency Provider Internal Medicine; PCP Internal Medicine Endocrinology, Diabetes & Metabolism; Visit Provider Hospitalist
DX: J18.9 Pneumonia, unspecified organism (principal); J96.01 Acute respiratory failure with hypoxia; N17.9 Acute kidney failure, unspecified; N40.0 Benign prostatic hyperplasia without lower urinary tract symptoms; D64.9 Anemia, unspecified; I10 Essential (primary) hypertension; G30.1 Alzheimer's disease with late onset; F02.80 Dementia in other diseases classified elsewhere, unspecified severity, without behavioral disturbance, psychotic disturbance, mood disturbance, and anxiety; Z20.822 Contact with and (suspected) exposure to COVID-19; Z79.82 Long term (current) use of aspirin; Z79.899 Other long term (current) drug therapy
CPT/HCPCS: 36415; 71045; 80048; 80076; 81001; 83605; 83880; 84484; 85014; 85018; 85025; 87040; 87449; 87635; 87899; 93005; 99285; J0696; J1956; J2543

== ENCOUNTER 2021-05-31 21:37 | Emergency (ER) | payer MEDICARE, SELFPAY ==
--- NOTE | ~2021-05-31 | XR_ITS ---
EXAMINATION: XR CHEST CLINICAL INFORMATION: Shortness of breath. COMPARISON: Multiple priors, most recent chest radiograph dated 04/29/2021. TECHNIQUE: Frontal view of the chest was obtained. FINDINGS: No focal airspace consolidation. No pleural effusion or pneumothorax. Stable cardiomediastinal silhouette. Chronic right humeral fracture. XR/XR chest 1V IMPRESSION: No acute cardiopulmonary findings.
[2021-05-31 21:47] VITALS: BP 143/59; PULSE 59; RESP 28; TEMP 37.1; O2SAT 97; BMI 22.9
--- NOTE | 2021-05-31 21:54 | ECG_ITS ---
Test Reason : DIFF BREATHING Blood Pressure : / mmHG Vent. Rate : 066 BPM Atrial Rate : 065 BPM P-R Int : 000 ms QRS Dur : 064 ms QT Int : 380 ms P-R-T Axes : 000 -03 015 degrees QTc Int : 398 ms Normal sinus rhythm with first degree AV block Nonspecific ST abnormality Abnormal ECG When compared with ECG of 29-APR-2021 22:41, Nonspecific T wave abnormality now evident in Inferior leads Referred By: Generic ED Physician Electronically Signed By:Chaparro Quintero
--- NOTE | 2021-05-31 22:01 | ED.SOB ---
HPI - SOB/Dyspnea General Chief Complaint: Dyspnea Stated Complaint: low o2 sat Time Seen by Provider: 05/31/21 22:01 Source: EMS and RN notes reviewed Mode of arrival: EMS Limitations: altered mental status History of Present Illness HPI Narrative: Patient with history of aspiration pneumonia 05/01, with history of alcoholic polyneuropathy, dementia, hypertension, CVA sent from half-way for increased congestion temperature of 100 degrees saturating 88% at room air per nurse he seems like same when he had aspiration pneumonia last month. When EMS reached saturation was 90% at room air gurgling sound was noticed in his throat. Related Data Home Medications Medication Instructions Recorded Confirmed amlodipine 5 mg PO DAILY 04/30/21 05/31/21 sertraline 50 mg DAILY 04/30/21 05/31/21 acetaminophen 650 mg PO TID PRN 05/31/21 05/31/21 aspirin 81 mg PO DAILY 05/31/21 05/31/21 atorvastatin 10 mg PO BEDTIME 05/31/21 05/31/21 docusate sodium [Colace] 100 mg PO DAILY 05/31/21 05/31/21 fentanyl 1 patch TRANSDERMAL Q72H 05/31/21 05/31/21 magnesium hydroxide 5 ml PO DAILY 05/31/21 05/31/21 melatonin 3 mg PO BEDTIME 05/31/21 mirtazapine [Remeron] 7.5 mg PO BEDTIME 05/31/21 05/31/21 polyethylene glycol 3350 17 g NEEDED PRN 05/31/21 05/31/21 Previous Rx's Medication Instructions Recorded atenolol 25 mg PO DAILY@0800 #30 tab 11/28/20 oxycodone 5 mg PO Q6H PRN #30 tab 11/28/20 tamsulosin 0.4 mg PO DAILY@2000 #30 cap 11/28/20 omeprazole 20 mg PO DAILY #30 cap 05/01/21 Allergies Allergy/AdvReac Type Severity Reaction Status Date / Time morphine [MORPHINE] Allergy Mild UNKNOWN Verified 05/31/21 21:53 erythromycin base Allergy Unknown UNKNOWN Verified 05/31/21 21:53 [ERYTHROMYCIN BASE] valsartan [VALSARTAN] Allergy Unknown UNKNOWN Verified 05/31/21 21:53 Review of Systems Review of Systems: Yes Unobtainable due to mental condition (Dementia) [facility] Past Medical History Medical History BPH (benign prostatic hyperplasia) Dementia Dementia HTN (hypertension) Neuropathy Social History Social History Household Members Other:: nursingn home Housing: [facility] Do you presently have visiting nurse or other home services: No Alcohol intake: unknown Patient Tobacco Use Status: Never used Tobacco Advance Directives: No Advance Directives Information Provided: No service: Yes Current occupational status: disabled Physical Exam Vital Signs: Vital Signs: Last Vital Signs Temp 98.7 F 05/31/21 21:47 Pulse 66 05/31/21 23:11 Resp 19 05/31/21 23:11 BP 121/48 L 05/31/21 23:11 Pulse Ox 99 05/31/21 23:11 Oxygen Flow Rate 4 05/31/21 21:47 Body Mass Index 22.9 Const: Other: Demented limited exam General: comfortable and no acute distress HENMT: Head: Yes normocephalic Eyes: General: appearance normal, both eyes and all related structures Neck: Neck: Yes normal visual inspection and Yes full ROM Resp: Effort & Inspection: normal respiratory effort and prolonged expiratory phase Auscultation: crackles (Mostly midsternum and lower neck), no rales, no rhonchi and diminished lung sounds Cardio: Palpation: normal PMI Rate: regular rate Rhythm: regular rhythm Heart sounds: S1 normal heart sound present and S2 normal heart sound present Peripheral pulses: Peripheral pulses 2+ throughout GI: Inspection: Yes normal to inspection Palpation (GI): Soft to palpation and nontender Neuro: Other: Demented oriented to person only right-sided contracted hemiparesis MDM - SOB/Dyspnea MDM Narrative Medical decision making narrative: Patient was sent from half-way for question of aspiration pneumonia. Workup here in the ER shows normal WBC count normal lactic acid level chest x-ray negative for any pneumonia patient saturating 98% at room air at this time , relaxed and sleeping case discussed with supervisors at half-way. Will discharge patient back to half-way will give prescription for Augmentin for possible bronchitis patient already received dose of Zosyn in the ER Lab Data Attestation: I reviewed the patient's lab results. Result diagrams: 05/31/21 22:10 05/31/21 22:10 Labs: Lab Results 05/31/21 05/31/21 05/31/21 Range/Units 22:10 22:10 22:10 WBC 8.8 (4.8-10.8) X10*3/uL RBC 2.85 L (4.60-5.80) X10*6/uL Hgb 8.8 L (14.0-18.0) g/dl Hct 27.6 L (42-52) % MCV 96.8 (80-98) fL MCH 30.9 (27.0-33.0) pg MCHC 31.9 (31.0-36.0) g/dl RDW 13.0 (11.0-16.0) % Plt Count 211 (160-400) X10*3/uL MPV 9.5 (9.4-12.4) fL Immature Gran % (Auto) 0.5 H (0.0-0.4) % Neut % (Auto) 65.8 (45-73) % Lymph % (Auto) 17.3 L (20-40) % [place] % (Auto) 8.7 (2-11) % Eos % (Auto) 7.2 H (0-4) % Baso % (Auto) 0.5 (0-2) % Lymph # (Auto) 1.5 (1.2-4.9) X10*3/uL [place] # (Auto) 0.8 (0.1-1.2) X10*3/uL Eos # (Auto) 0.6 H (0.0-0.4) X10*3/uL Baso # (Auto) 0.0 (0.0-0.2) X10*3/uL Abs Immat Gran (auto) 0.04 H (0.00-0.03) X10*3/uL Absolute Neuts (auto) 5.8 (2.0-8.3) X10*3/uL Absolute Nucleated RBC 0.000 (0.0-0.012) X10*3/uL Nucleated RBC % (auto) 0.0 (0.0-0.2) /100WBC Sodium 139 (135-145) mmol/L Potassium 5.0 (3.3-5.1) mmol/L Chloride 105 (96-108) mmol/L Carbon Dioxide 24 (22-29) mmol/L Anion Gap 15 (12-20) BUN 43 H (9-16) mg/dL Creatinine 1.67 H (0.5-1.4) mg/dL Estim Creat Clear Calc 37.4 Estimated GFR 39 Random Glucose 114 (60-115) mg/dL Lactic Acid 1.2 (0.5-2.0) mmol/L Calcium 9.0 (8.4-10.2) mg/dL Troponin I High Sens (<3.5-35.0) ng/L B-Natriuretic Peptide (<100) pg/mL COVID-19 (GRACIE) (Negative) COVID-19 Clin Com 05/31/21 05/31/21 Range/Units 22:10 22:10 WBC (4.8-10.8) X10*3/uL RBC (4.60-5.80) X10*6/uL Hgb (14.0-18.0) g/dl Hct (42-52) % MCV (80-98) fL MCH (27.0-33.0) pg MCHC (31.0-36.0) g/dl RDW (11.0-16.0) % Plt Count (160-400) X10*3/uL MPV (9.4-12.4) fL Immature Gran % (Auto) (0.0-0.4) % Neut % (Auto) (45-73) % Lymph % (Auto) (20-40) % [place] % (Auto) (2-11) % Eos % (Auto) (0-4) % Baso % (Auto) (0-2) % Lymph # (Auto) (1.2-4.9) X10*3/uL [place] # (Auto) (0.1-1.2) X10*3/uL Eos # (Auto) (0.0-0.4) X10*3/uL Baso # (Auto) (0.0-0.2) X10*3/uL Abs Immat Gran (auto) (0.00-0.03) X10*3/uL Absolute Neuts (auto) (2.0-8.3) X10*3/uL Absolute Nucleated RBC (0.0-0.012) X10*3/uL Nucleated RBC % (auto) (0.0-0.2) /100WBC Sodium (135-145) mmol/L Potassium (3.3-5.1) mmol/L Chloride (96-108) mmol/L Carbon Dioxide (22-29) mmol/L Anion Gap (12-20) BUN (9-16) mg/dL Creatinine (0.5-1.4) mg/dL Estim Creat Clear Calc Estimated GFR Random Glucose (60-115) mg/dL Lactic Acid (0.5-2.0) mmol/L Calcium (8.4-10.2) mg/dL Troponin I High Sens 4.2 (<3.5-35.0) ng/L B-Natriuretic Peptide 109 H (<100) pg/mL COVID-19 (GRACIE) Negative (Negative) COVID-19 Clin Com See Note Discharge Plan Discharge Prescriptions: No Action atenolol 25 mg Tablet 25 mg PO DAILY@0800 Qty: 30 RF: 0 tamsulosin 0.4 mg Capsule 0.4 mg PO DAILY@2000 Qty: 30 RF: 0 oxycodone 5 mg Tablet 5 mg PO Q6H PRN (Reason: Pain, Severe (Pain Scale 7-10)) Qty: 30 RF: 0 amlodipine 5 mg Tablet 5 mg PO DAILY RF: 0 sertraline 50 mg Tablet 50 mg DAILY RF: 0 omeprazole 20 mg capsule,delayed release(DR/EC) 20 mg PO DAILY Qty: 30 RF: 0 fentanyl 50 mcg/hr Patch 72 Hour 1 patch TRANSDERMAL Q72H RF: 0 magnesium hydroxide 400 mg/5 mL Suspension 5 ml PO DAILY RF: 0 docusate sodium [Colace] 100 mg Capsule 100 mg PO DAILY RF: 0 mirtazapine [Remeron] 15 mg Tablet 7.5 mg PO BEDTIME RF: 0 polyethylene glycol 3350 17 gram/dose Powder 17 g NEEDED PRN (Reason: Constipation) RF: 0 melatonin 3 mg Capsule 3 mg PO BEDTIME RF: 0 acetaminophen 325 mg tablet 650 mg PO TID PRN (Reason: Pain, Mild (Pain Scale 1-3)) RF: 0 atorvastatin 10 mg tablet 10 mg PO BEDTIME RF: 0 aspirin 81 mg tablet,chewable 81 mg PO DAILY RF: 0
--- NOTE | 2021-05-31 22:10 | PC.NURSE ---
at bedside for primary eval. IV established, all labs obtained including BCX x 2 and lactic. Covid swab and EKG obtained. IVF and Zosyn infusing per MAR. VSS at this time.
[2021-05-31] MEDS: 0.9 % Sodium Chloride 1,000 ML 999 ML IVCONT (22:16)
[2021-05-31] MEDS: Piperacillin Sodium/Tazobactam 3.375 GM in 0.9 % Sodium Chloride 50 ML IV (22:21)
[2021-05-31 22:22] LABS: MANUAL DIFF FLAG NO
[2021-05-31 22:26] LABS: Basophils Percent Auto 0.5 % (0-2); Eosinophils Absolute Auto 0.6 X10*3/uL (0.0-0.4); Eosinophils Percent Auto 7.2 % (0-4); Hematocrit 27.6 % (42-52); Hemoglobin 8.8 g/dl (14.0-18.0); Imm Gran Abs Auto 0.04 X10*3/uL (0.00-0.03); Imm Gran Pct Auto 0.5 % (0.0-0.4); Lymphocytes Absolute Auto 1.5 X10*3/uL (1.2-4.9); Lymphocytes Percent Auto 17.3 % (20-40); Mean Corpuscular HGB Conc 31.9 g/dl (31.0-36.0); Mean Corpuscular Hemoglobin 30.9 pg (27.0-33.0); Mean Corpuscular Volume 96.8 fL (80-98); Mean Platelet Volume 9.5 fL (9.4-12.4); Monocytes Absolute Auto 0.8 X10*3/uL (0.1-1.2); Monocytes Percent Auto 8.7 % (2-11); Neutrophils Absolute Auto 5.8 X10*3/uL (2.0-8.3); Neutrophils Percent Auto 65.8 % (45-73); Platelet Count 211 X10*3/uL (160-400); Red Blood Count 2.85 X10*6/uL (4.60-5.80); White Blood Count 8.8 X10*3/uL (4.8-10.8)
[2021-05-31 22:41] LABS: COVID-19 Test Negative (Negative)
[2021-05-31 22:45] LABS: Lactic Acid 1.2 mmol/L (0.5-2.0)
--- NOTE | 2021-05-31 22:46 | PC.NURSE ---
Med Rec completed from paperwork/MAR sent by SNF, unable to verify with pt due to Dementia.
[2021-05-31 22:47] LABS: Anion Gap 15 (12-20); Blood Urea Nitrogen 43 mg/dL (9-16); Carbon Dioxide 24 mmol/L (22-29); Chloride 105 mmol/L (96-108); Creatinine Clr Calc Pharmacy 37.4; Estimated Glomerular Filt Rate 39; Glucose Random 114 mg/dL (60-115); Sodium 139 mmol/L (135-145)
[2021-05-31 22:54] LABS: B Type Natriuretic Peptide 109 pg/mL (<100); Troponin-I High Sensitivity 4.2 ng/L (<3.5-35.0)
[2021-05-31 23:11] VITALS: BP 121/48; PULSE 66; RESP 19; O2SAT 99
[2021-06-01] VITALS: BP 110/49; PULSE 69; RESP 18; O2SAT 98
[2021-06-01 01:14] VITALS: BP 107/43; PULSE 69; RESP 19; O2SAT 96
== END 2021-06-01 01:29 | disposition skilled nursing facility (03) ==
PROVIDERS: Emergency Provider Internal Medicine
DX: J40 Bronchitis, not specified as acute or chronic (principal); F03.90 Unspecified dementia, unspecified severity, without behavioral disturbance, psychotic disturbance, mood disturbance, and anxiety; I10 Essential (primary) hypertension; Z87.01 Personal history of pneumonia (recurrent); Z86.73 Personal history of transient ischemic attack (TIA), and cerebral infarction without residual deficits; Z79.899 Other long term (current) drug therapy; Z20.822 Contact with and (suspected) exposure to COVID-19
CPT/HCPCS: 36415; 71045; 80048; 83605; 83880; 84484; 85025; 87040; 87635; 93005; 96365; 99284; J2543

== ENCOUNTER 2021-07-04 23:14 | Outpatient (REF) | payer MEDICARE, SELFPAY ==
[2021-07-04 23:25] LABS: Glucose Urine UA NEG (NEG); Leukocyte Esterase Urine NEG (NEG); Nitrite Urine NEG (NEG); PH 7.5 (5.0-8.0); Specific Gravity - Urine 1.015 (1.005-1.025); UACC Culture Trigger NO; Urine Blood NEG (NEG); Urine Ketones NEG (NEG); Urine Protein 2+ MG/DL (NEG-TRACE)
[2021-07-04 23:31] LABS: Appearance Urine CLEAR; Color Urine YELLOW
[2021-07-04 23:33] LABS: RBC Urine 0-2 /HPF (0); Squamous Epithelial Cell Urine 1+ /LPF; WBC Urine 0-2 /HPF (0-4)
== END 2021-07-04 23:15 | disposition home or self-care (01) ==
LOC: HO.HSH2E 23:14
PROVIDERS: Visit Provider Internal Medicine Medical Oncology
DX: R50.9 Fever, unspecified (principal); R05 Cough
CPT/HCPCS: 81001

== ENCOUNTER 2021-08-06 23:20 | Inpatient (IN) | payer MEDICARE, SELFPAY ==
--- NOTE | ~2021-08-06 | XR_ITS ---
EXAMINATION: XR CHEST CLINICAL INFORMATION: Cough and fever COMPARISON: 05/31/2021 TECHNIQUE: Frontal view of the chest was obtained. FINDINGS: Heart and pulmonary vessels appear normal. No infiltrates, effusions or lung masses are seen. Some minimal left basilar atelectasis is present associated with mild elevation of the left hemidiaphragm. 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 XR/XR chest 1V IMPRESSION: No acute intrathoracic disease
--- NOTE | 2021-08-06 23:35 | ECG_ITS ---
Test Reason : WEAKNESS Blood Pressure : / mmHG Vent. Rate : 080 BPM Atrial Rate : 394 BPM P-R Int : 000 ms QRS Dur : 066 ms QT Int : 356 ms P-R-T Axes : 000 009 041 degrees QTc Int : 410 ms Normal sinus rhythm with 1st degree A-V block Nonspecific ST abnormality Abnormal ECG When compared with ECG of 31-MAY-2021 22:15, No significant change was found Referred By: Mitzy Roche Electronically Signed By:RADHA BARRON
[2021-08-06 23:43] VITALS: BP 140/57; PULSE 87; O2SAT 96
[2021-08-06 23:50] VITALS: BP 137/60; PULSE 83; RESP 16; TEMP 38.1; O2SAT 95
--- NOTE | 2021-08-07 00:11 | ED_ITS ---
HPI - Fever General Chief Complaint: Fever <Mitzy Roche NP - Last Filed: 08/07/21 00:14> Stated Complaint: flu like symptoms <Mitzy Roche NP - Last Filed: 08/07/21 00:14> Time Seen by Provider: 08/06/21 23:35 <Mitzy Roche NP - Last Filed: 08/07/21 00:14> Source: EMS <Mitzy Roche NP - Last Filed: 08/07/21 00:14> Mode of arrival: EMS <Mitzy Roche NP - Last Filed: 08/07/21 00:14> Limitations: altered mental status <Mitzy Roche NP - Last Filed: 08/07/21 00:14> History of Present Illness HPI Narrative: 85-year-old male coming from a fpc with reports of fever of 101.6 with cough. Per report patient had a negative COVID screen there. He has a past medical history of dementia, hypertension, hyperlipidemia, BPH, anemia, osteoarthritis, alcoholic polyneuropath, depression. <Mitzy Roche NP - Last Filed: 08/07/21 00:14> Related Data Home Medications: Home Medications Medication Instructions Recorded Confirmed amlodipine 5 mg tablet 5 mg PO DAILY 04/30/21 05/31/21 sertraline 50 mg tablet 50 mg DAILY 04/30/21 05/31/21 acetaminophen 325 mg tablet 650 mg PO TID PRN 05/31/21 05/31/21 aspirin 81 mg chewable tablet 81 mg PO DAILY 05/31/21 05/31/21 atorvastatin 10 mg tablet 10 mg PO BEDTIME 05/31/21 05/31/21 docusate sodium 100 mg capsule 100 mg PO DAILY 05/31/21 05/31/21 (Colace) fentanyl 50 mcg/hr transdermal 1 patch TRANSDERMAL Q72H 05/31/21 05/31/21 patch magnesium hydroxide 400 mg/5 mL 5 ml PO DAILY 05/31/21 05/31/21 oral suspension melatonin 3 mg capsule 3 mg PO BEDTIME 05/31/21 mirtazapine 15 mg tablet (Remeron) 7.5 mg PO BEDTIME 05/31/21 05/31/21 polyethylene glycol 3350 17 17 g NEEDED PRN 05/31/21 05/31/21 gram/dose oral powder Previous Rx's Medication Instructions Recorded atenolol 25 mg tablet 25 mg PO DAILY@0800 #30 tab 11/28/20 oxycodone 5 mg tablet 5 mg PO Q6H PRN #30 tab 11/28/20 tamsulosin 0.4 mg capsule 0.4 mg PO DAILY@2000 #30 cap 11/28/20 omeprazole 20 mg capsule,delayed 20 mg PO DAILY #30 cap 05/01/21 release amoxicillin 875 mg-potassium 1 tab PO BID #20 tab 06/01/21 clavulanate 125 mg tablet (Augmentin) <Mitzy Roche NP - Last Filed: 08/07/21 00:14> Allergies/Adverse Reactions: Allergies Allergy/AdvReac Type Severity Reaction Status Date / Time morphine [MORPHINE] Allergy Mild UNKNOWN Verified 05/31/21 21:53 erythromycin base Allergy Unknown UNKNOWN Verified 05/31/21 21:53 [ERYTHROMYCIN BASE] valsartan [VALSARTAN] Allergy Unknown UNKNOWN Verified 05/31/21 21:53 <Mitzy Roche NP - Last Filed: 08/07/21 00:14> Review of Systems Review of Systems: Yes Unobtainable due to mental status <Mitzy Roche NP - Last Filed: 08/07/21 00:14> Neurologic: Reports confusion <Mityz Roche NP - Last Filed: 08/07/21 00:14> Psychiatric: Psychiatric: Reports confusion <Mitzy Roche NP - Last Filed: 08/07/21 00:14> [facility] Past Medical History Attestation statement: The following information was validated with the patient. <Mitzy Roche NP - Last Filed: 08/07/21 00:14> Source: old records reviewed and nursing notes reviewed <Mitzy Roche NP - Last Filed: 08/07/21 00:14> Medical History: Medical History BPH (benign prostatic hyperplasia) Dementia Dementia HTN (hypertension) Neuropathy <Mitzy Roche NP - Last Filed: 08/07/21 00:14> Social History Social History: Social History Household Members Other:: nursingn home Housing: Residential Do you presently have visiting nurse or other home services: No Alcohol intake: unknown Patient Tobacco Use Status: Never used Tobacco Advance Directives: No service: Yes Current occupational status: disabled <Mitzy Roche NP - Last Filed: 08/07/21 00:14> Physical Exam Vital Signs: Vital Signs: Last Vital Signs Temp 100.5 F H 08/06/21 23:50 Pulse 83 08/06/21 23:50 Resp 16 08/06/21 23:50 BP 137/60 08/06/21 23:50 Pulse Ox 95 08/06/21 23:50 <Mitzy Roche NP - Last Filed: 08/07/21 00:14> Vital Signs: Last Vital Signs Temp 100.5 F H 08/06/21 23:50 Pulse 83 08/06/21 23:50 Resp 16 08/06/21 23:50 BP 137/60 08/06/21 23:50 Pulse Ox 95 08/06/21 23:50 <Hero Rao MD - Last Filed: 08/07/21 06:28> Const: General: alert and confusion <Mitzy Roche NP - Last Filed: 08/07/21 00:14> Orientation/consciousness: confusion <Mitzy Roche NP - Last Filed: 08/07/21 00:14> Limitations: altered mental status <Mitzy Roche NP - Last Filed: 08/07/21 00:14> HENMT: Head: Yes normal to inspection <Mitzy Roche NP - Last Filed: 08/07/21 00:14> Ears: hearing grossly normal bilaterally <Mitzy Roche NP - Last Filed: 08/07/21 00:14> General nose exam: Normal external nose present <Mitzy Roche NP - Last Filed: 08/07/21 00:14> Face and sinus: Yes normal facial exam <Mitzy Roche NP - Last Filed: 08/07/21 00:14> Mouth: Normal oral and palatal mucosa present <Mitzy Roche NP - Last Filed: 08/07/21 00:14> Throat: Yes posterior oropharynx normal <Mitzy Roche NP - Last Filed: 08/07/21 00:14> Eyes: General: appearance normal, both eyes and all related structures <Mitzy Roche NP - Last Filed: 08/07/21 00:14> Pupils: Equal, round and reactive pupils present <Mitzy Roche NP - Last Filed: 08/07/21 00:14> Neck: Neck: Yes normal visual inspection <Mitzy Roche NP - Last Filed: 08/07/21 00:14> Chest: Chest palpation & inspection: normal inspection of the chest <Mitzy Roche NP - Last Filed: 08/07/21 00:14> Resp: Effort & Inspection: normal respiratory effort <Mitzy Roche NP - Last Filed: 08/07/21 00:14> Auscultation: clear to auscultation bilaterally <Mitzy Roche NP - Last Filed: 08/07/21 00:14> Cardio: Rate: regular rate <Mitzy Roche NP - Last Filed: 08/07/21 00:14> Rhythm: regular rhythm <Mitzy Roche NP - Last Filed: 08/07/21 00:14> Peripheral pulses: Peripheral pulses 2+ throughout <Mitzy Roche NP - Last Filed: 08/07/21 00:14> GI: Inspection: Yes normal to inspection <Mitzy Roche NP - Last Filed: 08/07/21 00:14> Palpation (GI): Soft to palpation and nontender <Mitzy Roche NP - Last Filed: 08/07/21 00:14> Auscultation: normal bowel sounds <Mitzy Roche NP - Last Filed: 00:14> Back/Spine/Pelvis: Thoracic/Lumbar Spine: thoracic and lumbar spine normal to inspection <Mitzy Roche NP - Last Filed: 08/07/21 00:14> Skin: General skin exam: no rashes or lesions noted <Mitzy Roche NP - Last Filed: 08/07/21 00:14> Neuro: Other: Upper and lower extremities contracted at baseline Patient nonverbal at baseline <Mitzy Roche NP - Last Filed: 08/07/21 00:14> General: normal sensation to monofilament and confusion <Mitzy Roche NP - Last Filed: 08/07/21 00:14> Cranial nerves: Yes Equal, round and reactive pupils present and Yes Midline tongue present <Mitzy Roche NP - Last Filed: 08/07/21 00:14> Extrem: Other: contracted <Mitzy Roche NP - Last Filed: 08/07/21 00: 14> General: Yes normal to inspection <Mitzy Roche NP - Last Filed: 08/07/21 00:14> Course Course Course Narrative: This is an 85-year-old male coming from a fpc with fever and cough. Per report from nursing patient had a negative COVID test prior to arrival. The patient is nonverbal at baseline, confused at baseline secondary to underlying dementia. Unable to obtain history of present illness or much with physical exam from the patient due to his baseline mental status. Will need labs including blood cultures, lactic acid, UA, chest x-ray, EKG <Mitzy Roche NP - Last Filed: 08/07/21 00:14> Reevaluation(s) Reevaluation #1: patient COVID positive will admit <Hero Rao MD - Last Filed: 08/07/21 06:28> Time: 06:26 <Hero Rao MD - Last Filed: 08/07/21 06:28> MDM - Fever MDM Narrative Medical decision making narrative: Pneumonia, UTI, viral syndrome <Mitzy Roche NP - Last Filed: 08/07/21 00:14> Medical Records Attestation: I reviewed the patient's medical records. <Mitzy Roche NP - Last Filed: 08/07/21 00:14> Lab Data Attestation: I reviewed the patient's lab results. <Mitzy Roche NP - Last Filed: 08/07/21 00:14> Result diagrams: : 08/07/21 00:08 08/07/21 00:08 <Mitzy Roche NP - Last Filed: 08/07/21 00:14> Labs: Lab Results 08/07/21 08/07/21 08/07/21 Range/Units 00:08 00:08 00:08 WBC 15.3 H (4.8-10.8) X10*3/uL RBC 3.17 L (4.60-5.80) X10*6/uL Hgb 9.4 L (14.0-18.0) g/dl Hct 28.8 L (42-52) % MCV 90.9 (80-98) fL MCH 29.7 (27.0-33.0) pg MCHC 32.6 (31.0-36.0) g/dl RDW 13.3 (11.0-16.0) % Plt Count 242 (160-400) X10*3/uL MPV 9.0 L (9.4-12.4) fL Immature Gran % (Auto) 0.7 H (0.0-0.4) % Neut % (Auto) 79.7 H (45-73) % Lymph % (Auto) 9.1 L (20-40) % [place] % (Auto) 7.6 (2-11) % Eos % (Auto) 2.6 (0-4) % Baso % (Auto) 0.3 (0-2) % Lymph # (Auto) 1.4 (1.2-4.9) X10*3/uL [place] # (Auto) 1.2 (0.1-1.2) X10*3/uL Eos # (Auto) 0.4 (0.0-0.4) X10*3/uL Baso # (Auto) 0.1 (0.0-0.2) X10*3/uL Abs Immat Gran (auto) 0.11 H (0.00-0.03) X10*3/uL Absolute Neuts (auto) 12.2 H (2.0-8.3) X10*3/uL Absolute Nucleated RBC 0.000 (0.0-0.012) X10*3/uL Nucleated RBC % (auto) 0.0 (0.0-0.2) /100WBC Sodium 142 (135-145) mmol/L Potassium 4.8 (3.3-5.1) mmol/L Chloride 108 (96-108) mmol/L Carbon Dioxide 23 (22-29) mmol/L Anion Gap 16 (12-20) BUN 57 H (9-16) mg/dL Creatinine 1.64 H (0.5-1.4) mg/dL Estim Creat Clear Calc TNP Estimated GFR 40 Random Glucose 120 H (60-115) mg/dL Lactic Acid 1.1 (0.5-2.0) mmol/L Calcium 9.4 (8.4-10.2) mg/dL Magnesium 2.2 (1.6-2.6) mg/dL Total Bilirubin 0.2 (0.0-1.0) mg/dL Direct Bilirubin < 0.2 (0.0-0.5) mg/dL AST 12 (5-37) U/L ALT 6 (0-40) U/L Alkaline Phosphatase 96 D (39-117) U/L Troponin I High Sens (<3.5-35.0) ng/L Total Protein 7.7 (6.5-8.0) g/dL Albumin 4.1 (3.5-5.0) g/dL Urine Color Urine Appearance Urine pH (5.0-8.0) Ur Specific [place] (1.005-1.025) Urine Protein (NEG-TRACE) MG/DL Urine Glucose (UA) (NEG) MG/DL Urine Ketones (NEG) MG/DL Urine Blood (NEG) Urine Nitrite (NEG) Ur Leukocyte Esterase (NEG) Urine RBC (0) /HPF Urine WBC (0-4) /HPF Ur Squamous Epith Cells /LPF Urine Bacteria /LPF 08/07/21 08/07/21 Range/Units 00:08 00:08 WBC (4.8-10.8) X10*3/uL RBC (4.60-5.80) X10*6/uL Hgb (14.0-18.0) g/dl Hct (42-52) % MCV (80-98) fL MCH (27.0-33.0) pg MCHC (31.0-36.0) g/dl RDW (11.0-16.0) % Plt Count (160-400) X10*3/uL MPV (9.4-12.4) fL Immature Gran % (Auto) (0.0-0.4) % Neut % (Auto) (45-73) % Lymph % (Auto) (20-40) % [place] % (Auto) (2-11) % Eos % (Auto) (0-4) % Baso % (Auto) (0-2) % Lymph # (Auto) (1.2-4.9) X10*3/uL [place] # (Auto) (0.1-1.2) X10*3/uL Eos # (Auto) (0.0-0.4) X10*3/uL Baso # (Auto) (0.0-0.2) X10*3/uL Abs Immat Gran (auto) (0.00-0.03) X10*3/uL Absolute Neuts (auto) (2.0-8.3) X10*3/uL Absolute Nucleated RBC (0.0-0.012) X10*3/uL Nucleated RBC % (auto) (0.0-0.2) /100WBC Sodium (135-145) mmol/L Potassium (3.3-5.1) mmol/L Chloride (96-108) mmol/L Carbon Dioxide (22-29) mmol/L Anion Gap (12-20) BUN (9-16) mg/dL Creatinine (0.5-1.4) mg/dL Estim Creat Clear Calc Estimated GFR Random Glucose (60-115) mg/dL Lactic Acid (0.5-2.0) mmol/L Calcium (8.4-10.2) mg/dL Magnesium (1.6-2.6) mg/dL Total Bilirubin (0.0-1.0) mg/dL Direct Bilirubin (0.0-0.5) mg/dL AST (5-37) U/L ALT (0-40) U/L Alkaline Phosphatase (39-117) U/L Troponin I High Sens 5.4 (<3.5-35.0) ng/L Total Protein (6.5-8.0) g/dL Albumin (3.5-5.0) g/dL Urine Color YELLOW Urine Appearance CLOUDY Urine pH 7.0 (5.0-8.0) Ur Specific [place] 1.015 (1.005-1.025) Urine Protein 2+ H (NEG-TRACE) MG/DL Urine Glucose (UA) NEG (NEG) MG/DL Urine Ketones NEG (NEG) MG/DL Urine Blood 1+ H (NEG) Urine Nitrite NEG (NEG) Ur Leukocyte Esterase 3+ H (NEG) Urine RBC 5-9 H (0) /HPF Urine WBC TNTC H (0-4) /HPF Ur Squamous Epith Cells NONE /LPF Urine Bacteria TRACE /LPF <Mitzy Roche, [employer] - Last Filed: 08/07/21 00:14> Lab Results 08/07/21 08/07/21 08/07/21 Range/Units 00:08 00:08 00:08 WBC 15.3 H (4.8-10.8) X10*3/uL RBC 3.17 L (4.60-5.80) X10*6/uL Hgb 9.4 L (14.0-18.0) g/dl Hct 28.8 L (42-52) % MCV 90.9 (80-98) fL MCH 29.7 (27.0-33.0) pg MCHC 32.6 (31.0-36.0) g/dl RDW 13.3 (11.0-16.0) % Plt Count 242 (160-400) X10*3/uL MPV 9.0 L (9.4-12.4) fL Immature Gran % (Auto) 0.7 H (0.0-0.4) % Neut % (Auto) 79.7 H (45-73) % Lymph % (Auto) 9.1 L (20-40) % [place] % (Auto) 7.6 (2-11) % Eos % (Auto) 2.6 (0-4) % Baso % (Auto) 0.3 (0-2) % Lymph # (Auto) 1.4 (1.2-4.9) X10*3/uL [place] # (Auto) 1.2 (0.1-1.2) X10*3/uL Eos # (Auto) 0.4 (0.0-0.4) X10*3/uL Baso # (Auto) 0.1 (0.0-0.2) X10*3/uL Abs Immat Gran (auto) 0.11 H (0.00-0.03) X10*3/uL Absolute Neuts (auto) 12.2 H (2.0-8.3) X10*3/uL Absolute Nucleated RBC 0.000 (0.0-0.012) X10*3/uL Nucleated RBC % (auto) 0.0 (0.0-0.2) /100WBC Sodium 142 (135-145) mmol/L Potassium 4.8 (3.3-5.1) mmol/L Chloride 108 (96-108) mmol/L Carbon Dioxide 23 (22-29) mmol/L Anion Gap 16 (12-20) BUN 57 H (9-16) mg/dL Creatinine 1.64 H (0.5-1.4) mg/dL Estim Creat Clear Calc TNP Estimated GFR 40 Random Glucose 120 H (60-115) mg/dL Lactic Acid 1.1 (0.5-2.0) mmol/L Calcium 9.4 (8.4-10.2) mg/dL Magnesium 2.2 (1.6-2.6) mg/dL Total Bilirubin 0.2 (0.0-1.0) mg/dL Direct Bilirubin < 0.2 (0.0-0.5) mg/dL AST 12 (5-37) U/L ALT 6 (0-40) U/L Alkaline Phosphatase 96 D (39-117) U/L Troponin I High Sens (<3.5-35.0) ng/L Total Protein 7.7 (6.5-8.0) g/dL Albumin 4.1 (3.5-5.0) g/dL Urine Color Urine Appearance Urine pH (5.0-8.0) Ur Specific [place] (1.005-1.025) Urine Protein (NEG-TRACE) MG/DL Urine Glucose (UA) (NEG) MG/DL Urine Ketones (NEG) MG/DL Urine Blood (NEG) Urine Nitrite (NEG) Ur Leukocyte Esterase (NEG) Urine RBC (0) /HPF Urine WBC (0-4) /HPF Ur Squamous Epith Cells /LPF Urine Bacteria /LPF 08/07/21 08/07/21 Range/Units 00:08 00:08 WBC (4.8-10.8) X10*3/uL RBC (4.60-5.80) X10*6/uL Hgb (14.0-18.0) g/dl Hct (42-52) % MCV (80-98) fL MCH (27.0-33.0) pg MCHC (31.0-36.0) g/dl RDW (11.0-16.0) % Plt Count (160-400) X10*3/uL MPV (9.4-12.4) fL Immature Gran % (Auto) (0.0-0.4) % Neut % (Auto) (45-73) % Lymph % (Auto) (20-40) % [place] % (Auto) (2-11) % Eos % (Auto) (0-4) % Baso % (Auto) (0-2) % Lymph # (Auto) (1.2-4.9) X10*3/uL [place] # (Auto) (0.1-1.2) X10*3/uL Eos # (Auto) (0.0-0.4) X10*3/uL Baso # (Auto) (0.0-0.2) X10*3/uL Abs Immat Gran (auto) (0.00-0.03) X10*3/uL Absolute Neuts (auto) (2.0-8.3) X10*3/uL Absolute Nucleated RBC (0.0-0.012) X10*3/uL Nucleated RBC % (auto) (0.0-0.2) /100WBC Sodium (135-145) mmol/L Potassium (3.3-5.1) mmol/L Chloride (96-108) mmol/L Carbon Dioxide (22-29) mmol/L Anion Gap (12-20) BUN (9-16) mg/dL Creatinine (0.5-1.4) mg/dL Estim Creat Clear Calc Estimated GFR Random Glucose (60-115) mg/dL Lactic Acid (0.5-2.0) mmol/L Calcium (8.4-10.2) mg/dL Magnesium (1.6-2.6) mg/dL Total Bilirubin (0.0-1.0) mg/dL Direct Bilirubin (0.0-0.5) mg/dL AST (5-37) U/L ALT (0-40) U/L Alkaline Phosphatase (39-117) U/L Troponin I High Sens 5.4 (<3.5-35.0) ng/L Total Protein (6.5-8.0) g/dL Albumin (3.5-5.0) g/dL Urine Color YELLOW Urine Appearance CLOUDY Urine pH 7.0 (5.0-8.0) Ur Specific [place] 1.015 (1.005-1.025) Urine Protein 2+ H (NEG-TRACE) MG/DL Urine Glucose (UA) NEG (NEG) MG/DL Urine Ketones NEG (NEG) MG/DL Urine Blood 1+ H (NEG) Urine Nitrite NEG (NEG) Ur Leukocyte Esterase 3+ H (NEG) Urine RBC 5-9 H (0) /HPF Urine WBC TNTC H (0-4) /HPF Ur Squamous Epith Cells NONE /LPF Urine Bacteria TRACE /LPF <Hero Rao MD - Last Filed: 08/07/21 06:28> Discharge Plan Discharge Clinical Impression: Fever of unknown origin, COVID-19 <Mitzy Roche NP - Last Filed: 08/07/21 00:14> Patient Disposition: Admitted As Inpatient <Mitzy Roche NP - Last Filed: 08/07/21 00:14>
[2021-08-07 00:14] LABS: MANUAL DIFF FLAG NO
[2021-08-07 00:16] LABS: Appearance Urine CLOUDY; Color Urine YELLOW; Glucose Urine UA NEG (NEG); Leukocyte Esterase Urine 3+ (NEG); Nitrite Urine NEG (NEG); Specific Gravity - Urine 1.015 (1.005-1.025); UACC Culture Trigger YES; Urine Blood 1+ (NEG); Urine Ketones NEG (NEG); Urine Protein 2+ MG/DL (NEG-TRACE)
[2021-08-07 00:17] LABS: Basophils Absolute Auto 0.1 X10*3/uL (0.0-0.2); Basophils Percent Auto 0.3 % (0-2); Eosinophils Absolute Auto 0.4 X10*3/uL (0.0-0.4); Eosinophils Percent Auto 2.6 % (0-4); Hematocrit 28.8 % (42-52); Hemoglobin 9.4 g/dl (14.0-18.0); Imm Gran Abs Auto 0.11 X10*3/uL (0.00-0.03); Imm Gran Pct Auto 0.7 % (0.0-0.4); Lymphocytes Absolute Auto 1.4 X10*3/uL (1.2-4.9); Lymphocytes Percent Auto 9.1 % (20-40); Mean Corpuscular HGB Conc 32.6 g/dl (31.0-36.0); Mean Corpuscular Hemoglobin 29.7 pg (27.0-33.0); Mean Corpuscular Volume 90.9 fL (80-98); Monocytes Absolute Auto 1.2 X10*3/uL (0.1-1.2); Monocytes Percent Auto 7.6 % (2-11); Neutrophils Absolute Auto 12.2 X10*3/uL (2.0-8.3); Neutrophils Percent Auto 79.7 % (45-73); Platelet Count 242 X10*3/uL (160-400); Red Blood Count 3.17 X10*6/uL (4.60-5.80); Red Cell Distribution Width 13.3 % (11.0-16.0); White Blood Count 15.3 X10*3/uL (4.8-10.8)
[2021-08-07 00:22] LABS: WBC Urine TNTC /HPF (0-4)
[2021-08-07 00:23] LABS: Bacteria Urine TRACE /LPF
[2021-08-07 00:26] LABS: Lactic Acid 1.1 mmol/L (0.5-2.0)
[2021-08-07 00:31] LABS: Alanine Aminotransferase 6 U/L (0-40); Albumin Level 4.1 g/dL (3.5-5.0); Alkaline Phosphatase 96 U/L (39-117); Anion Gap 16 (12-20); Aspartate Amino Transferase 12 U/L (5-37); Bilirubin Direct < 0.2 mg/dL (0.0-0.5); Bilirubin Total 0.2 mg/dL (0.0-1.0); Blood Urea Nitrogen 57 mg/dL (9-16); Calcium 9.4 mg/dL (8.4-10.2); Carbon Dioxide 23 mmol/L (22-29); Chloride 108 mmol/L (96-108); Estimated Glomerular Filt Rate 40; Glucose Random 120 mg/dL (60-115); Magnesium 2.2 mg/dL (1.6-2.6); Potassium 4.8 mmol/L (3.3-5.1); Sodium 142 mmol/L (135-145); Total Protein 7.7 g/dL (6.5-8.0)
[2021-08-07 00:36] LABS: Troponin-I High Sensitivity 5.4 ng/L (<3.5-35.0)
[2021-08-07] MEDS: cefEPime HCl 1 GM in 0.9 % Sodium Chloride 50 ML IV (01:20)
[2021-08-07 05:59] LABS: Influenza A PCR NEGATIVE (Negative); Influenza B PCR NEGATIVE (Negative); Resp Syncy Virus RNA Qual PCR NEGATIVE (Negative); SARS COV2 PCR INHOUSE NEGATIVE (Negative)
--- NOTE | 2021-08-07 06:52 | P.HPHOSP_ITS ---
History of Present Illness Date of Service: 08/07/21 Chief Complaint: Fever and increased lethargy 85-year-old male with past medical history of BPH, dementia, non verbal at baseline, HTN, CVA, HLD, chronic anemia presents to the hospital from [facility] with reported 2 days of fever, and increased lethargy. Patient is not verbal at baseline therefore unable to obtain much history from him therefore history is obtained from ED staff and EMR On arrival to the ED patient found to have a temperature of a 100.5?, heart rate of 83, respiratory rate of 16, blood pressure 137/60, satting 95% on room air Labs on arrival are significant for WBC count of 15.3, hemoglobin of 9.4 which is around his baseline, BUN of 57, creatinine of 1.64 with a baseline of 1.2, UA positive for nitrites, leukocyte Estrace, WBC, COVID-19, influenza and RSV negative Patient will be admitted for further management Past medical history for EMR Review of Systems Review of Systems: Yes Unobtainable due to mental condition and Unobtainable due to mental status [facility] Medical History (Updated 08/07/21 @ 06:59 by Justin Becker MD) BPH (benign prostatic hyperplasia) Chronic anemia CVA (cerebral vascular accident) Dementia Dementia HLD (hyperlipidemia) HTN (hypertension) Neuropathy Pertinent family history: Unable to obtain Social History Household Members Other:: nursingn home Housing: Half-Way Do you presently have visiting nurse or other home services: No Alcohol intake: unknown Patient Tobacco Use Status: Never used Tobacco Advance Directives: No service: Yes Current occupational status: disabled Meds Allergies Allergy/AdvReac Type Severity Reaction Status Date / Time morphine [MORPHINE] Allergy Mild UNKNOWN Verified 05/31/21 21:53 erythromycin base Allergy Unknown UNKNOWN Verified 05/31/21 21:53 [ERYTHROMYCIN BASE] valsartan [VALSARTAN] Allergy Unknown UNKNOWN Verified 05/31/21 21:53 Home Medications Medication Instructions Recorded Confirmed Last Taken Type amlodipine 5 mg tablet 5 mg PO DAILY 04/30/21 05/31/21 05/31/21 21:00 History sertraline 50 mg tablet 50 mg DAILY 04/30/21 05/31/21 05/31/21 09:00 History acetaminophen 325 mg tablet 650 mg PO TID PRN 05/31/21 05/31/21 05/31/21 20:00 History aspirin 81 mg chewable tablet 81 mg PO DAILY 05/31/21 05/31/21 05/31/21 09:00 History atorvastatin 10 mg tablet 10 mg PO BEDTIME 05/31/21 05/31/21 05/31/21 21:00 History docusate sodium 100 mg capsule 100 mg PO DAILY 05/31/21 05/31/21 05/31/21 09:00 History (Colace) fentanyl 50 mcg/hr transdermal 1 patch TRANSDERMAL Q72H 05/31/21 05/31/21 05/30/21 History patch magnesium hydroxide 400 mg/5 mL 5 ml PO DAILY 05/31/21 05/31/21 05/31/21 08:00 History oral suspension melatonin 3 mg capsule 3 mg PO BEDTIME 05/31/21 05/31/21 21:00 History mirtazapine 15 mg tablet (Remeron) 7.5 mg PO BEDTIME 05/31/21 05/31/21 05/31/21 21:00 History polyethylene glycol 3350 17 17 g NEEDED PRN 05/31/21 05/31/21 Unknown History gram/dose oral powder Physical Exam Vital Signs and Narrative: Vital Signs: Last Vital Signs Temp 100.5 F H 08/06/21 23:50 Pulse 83 08/06/21 23:50 Resp 16 08/06/21 23:50 BP 137/60 08/06/21 23:50 Pulse Ox 95 08/06/21 23:50 Const: General: cooperative and no acute distress Eyes: General: appearance normal, both eyes and all related structures Resp: Effort & Inspection: normal respiratory effort Auscultation: clear to auscultation bilaterally Cardio: Rate: regular rate Rhythm: regular rhythm GI: Palpation (GI): Soft to palpation Auscultation: normal bowel sounds Skin: General skin exam: no rashes or lesions noted Neuro: Other: Unable to assess Extrem: General: Yes normal to inspection and Yes no pedal edema Results Labs CBC and Chem 7: 08/07/21 00:08 08/07/21 00:08 Labs: Laboratory Results - last 24 hr 08/06/21 08/07/21 08/07/21 23:52 00:08 00:08 MCV 90.9 MCH 29.7 MCHC 32.6 RDW 13.3 Plt Count 242 MPV 9.0 L Immature Gran % (Auto) 0.7 H Neut % (Auto) 79.7 H Lymph % (Auto) 9.1 L [place] % (Auto) 7.6 Eos % (Auto) 2.6 Baso % (Auto) 0.3 Lymph # (Auto) 1.4 [place] # (Auto) 1.2 Eos # (Auto) 0.4 Baso # (Auto) 0.1 Abs Immat Gran (auto) 0.11 H Absolute Neuts (auto) 12.2 H Absolute Nucleated RBC 0.000 Nucleated RBC % (auto) 0.0 Anion Gap 16 Estim Creat Clear Calc TNP Estimated GFR 40 Random Glucose 120 H Lactic Acid Calcium 9.4 Magnesium 2.2 Total Bilirubin 0.2 Direct Bilirubin < 0.2 AST 12 ALT 6 Alkaline Phosphatase 96 D Troponin I High Sens Total Protein 7.7 Albumin 4.1 Urine Color Urine Appearance Urine pH Ur Specific [place] Urine Protein Urine Glucose (UA) Urine Ketones Urine Blood Urine Nitrite Ur Leukocyte Esterase Urine RBC Urine WBC Ur Squamous Epith Cells Urine Bacteria Coronavirus (PCR) NEGATIVE Influenza Type A (PCR) NEGATIVE Influenza Type B (PCR) NEGATIVE RSV RNA Qual (PCR) NEGATIVE 08/07/21 08/07/21 08/07/21 00:08 00:08 00:08 MCV MCH MCHC RDW Plt Count MPV Immature Gran % (Auto) Neut % (Auto) Lymph % (Auto) [place] % (Auto) Eos % (Auto) Baso % (Auto) Lymph # (Auto) [place] # (Auto) Eos # (Auto) Baso # (Auto) Abs Immat Gran (auto) Absolute Neuts (auto) Absolute Nucleated RBC Nucleated RBC % (auto) Anion Gap Estim Creat Clear Calc Estimated GFR Random Glucose Lactic Acid 1.1 Calcium Magnesium Total Bilirubin Direct Bilirubin AST ALT Alkaline Phosphatase Troponin I High Sens 5.4 Total Protein Albumin Urine Color YELLOW Urine Appearance CLOUDY Urine pH 7.0 Ur Specific [place] 1.015 Urine Protein 2+ H Urine Glucose (UA) NEG Urine Ketones NEG Urine Blood 1+ H Urine Nitrite NEG Ur Leukocyte Esterase 3+ H Urine RBC 5-9 H Urine WBC TNTC H Ur Squamous Epith Cells NONE Urine Bacteria TRACE Coronavirus (PCR) Influenza Type A (PCR) Influenza Type B (PCR) RSV RNA Qual (PCR) Imaging Radiologist's Impressions: Impressions Chest X-Ray 08/07/21 00:00 IMPRESSION: No acute intrathoracic disease Assessment and Plan (1) Sepsis: Status: Acute (2) UTI (urinary tract infection): Status: Acute (3) KRISTINA (acute kidney injury): Status: Acute (4) Normocytic anemia: Status: Acute This is an 85-year-old male with past medical history of hypertension, CVA, dementia, nonverbal at baseline presents to the hospital from skilled nursing with reported fevers and increased lethargy # sepsis - secondary to UTI - patient has leukocytosis, febrile - started on IV antibiotics -follow culture - IV fluids # UTI - UA positive, patient has leukocytosis, febrile - IV antibiotics - follow cultures # KRISTINA - most likely secondary to sepsis - will start on IV fluids - follow BMP # chronic anemia - hemoglobin at baseline - follow daily CBC DVT prophylaxis: Heparin subQ Quality Stroke Does the patient have a stroke diagnosis?: No VTE Prior VTE?: No VTE Risk Level:: Medical - moderate - high VTE Device Contraindication: Treatment Not Indicated VTE Drug Contraindication: N/A - Med Ordered
[2021-08-07] MEDS: cefTRIAXone sodium 1 GM in 0.9 % Sodium Chloride 50 ML IV (07:27)
[2021-08-07] MEDS: Heparin Sodium,Porcine 5,000 UNIT/ML VIAL 5000 UNIT SUBCUT ×2 (07:28→21:15)
[2021-08-07] MEDS: Lactated Ringers 1,000 ML 80 ML IVCONT (07:37)
[2021-08-07 07:55] VITALS: BP 87/38; PULSE 56; RESP 14; O2SAT 95
--- NOTE | 2021-08-07 09:13 | PHA.MEDREC ---
Pharmacy Consult ? Medication Reconciliation Pharmacy has completed the medication reconciliation. Patient came from [facility] with medication list. Meri Qiu, PanchoD
--- NOTE | 2021-08-07 11:15 | PC.NURSE ---
call for report, shira farnsworth to call back
--- NOTE | 2021-08-07 11:48 | PC.NURSE ---
report given to shira farnsworth
[2021-08-07 11:55] VITALS: BP 124/53; PULSE 61; RESP 14; O2SAT 96
[2021-08-07 12:00] VITALS: BP 164/73; PULSE 72; RESP 14; TEMP 36.3; O2SAT 97
--- NOTE | 2021-08-07 13:15 | MHC.CM.PN ---
spoke with pts son marta who confirms pt feom hs where he will return when medically stable
--- NOTE | 2021-08-07 14:10 | MHC.CM.PN ---
pt from [facility] pt is nonverbal called and spoke with son marta [phone] agrees with dc plan of mpt returning to [facility] when dcd pt will need bls transport home
[2021-08-07 15:11] VITALS: BP 148/64; PULSE 73; RESP 18; TEMP 36.7; O2SAT 95
--- NOTE | 2021-08-07 15:32 | MHC.CM.PN ---
IMM 08/07/21, CM CONTACTED PTS DTR/HCP DAILY SAWANT AT 1518, PER DAILY PLEASE CONTACT HER AND NOT PT'S SON FOR ANY ISSUES THAT ARISE, PER DAILY SABINA MILO ([facility] CARE [facility]) A FEW YRS AGO AND SHE IS PTS ALTERNATE, COPY OF HCP ON FILE AND VERIFIED, CM TO CONTACT REGISTRATION TO HAVE PRIMARY CONTACT CHANGED, IMM TO BE EMAILED TO [email or web address] D/C PLAN: RETURN TO [facility] ONCE MEDICALLY CLEARED, [facility] FOR BLS TRANSPORT
--- NOTE | 2021-08-07 16:17 | PM.EVENT ---
Event Note Date of Service: 08/07/21 Event Note: Patient admitted early this morning for fever and increased lethargy, at baseline patient is nonverbal with past medical history of dementia, CVA, hyperlipidemia chronic anemia, [facility], patient diagnosed to have sepsis due to UTI and KRISTINA At present patient is resting comfortably open eyes to verbal command otherwise nonverbal Assessment plan 85-year-old male with past medical history of hypertension, CVA, dementia, nonverbal at baseline [facility] with reported fevers and increased lethargy # sepsis secondary to UTI Patient met sepsis criteria due to leukocytosis, fever Will continue IV ceftriaxone and follow urine and blood culture, follow CBC and clinical course # KRISTINA - most likely secondary to sepsis, continue IV fluids - follow BMP # chronic anemia - hemoglobin at baseline, follow CBC # BPH continue Flomax # hypertension, noted to have low blood pressure on admission, now trending up will resume home medication amlodipine and atenolol and follow BP closely # mood disorder/dementia continue home medication DVT prophylaxis:? Heparin subQ
[2021-08-07 19:13] VITALS: BP 129/62; PULSE 74; RESP 18; TEMP 36.7; O2SAT 96
[2021-08-07 23:35] VITALS: BP 146/67; PULSE 83; RESP 16; TEMP 36.6; O2SAT 100
[2021-08-07] MEDS: Lactated Ringers 1,000 ML 8 ML IVCONT (23:53)
[2021-08-08 03:47] VITALS: BP 158/66; PULSE 79; RESP 14; TEMP 37.1; O2SAT 97
[2021-08-08 06:06] LABS: MANUAL DIFF FLAG NO
[2021-08-08 06:23] LABS: Basophils Percent Auto 0.3 % (0-2); Eosinophils Absolute Auto 0.5 X10*3/uL (0.0-0.4); Eosinophils Percent Auto 6.1 % (0-4); Hematocrit 23.5 % (42-52); Hemoglobin 7.7 g/dl (14.0-18.0); Imm Gran Abs Auto 0.03 X10*3/uL (0.00-0.03); Imm Gran Pct Auto 0.3 % (0.0-0.4); Lymphocytes Absolute Auto 2.1 X10*3/uL (1.2-4.9); Lymphocytes Percent Auto 24.1 % (20-40); Mean Corpuscular HGB Conc 32.8 g/dl (31.0-36.0); Mean Corpuscular Hemoglobin 30.3 pg (27.0-33.0); Mean Corpuscular Volume 92.5 fL (80-98); Mean Platelet Volume 9.8 fL (9.4-12.4); Monocytes Absolute Auto 0.7 X10*3/uL (0.1-1.2); Monocytes Percent Auto 8.4 % (2-11); Neutrophils Absolute Auto 5.2 X10*3/uL (2.0-8.3); Neutrophils Percent Auto 60.8 % (45-73); Platelet Count 189 X10*3/uL (160-400); Red Blood Count 2.54 X10*6/uL (4.60-5.80); Red Cell Distribution Width 13.7 % (11.0-16.0); White Blood Count 8.6 X10*3/uL (4.8-10.8)
[2021-08-08 06:48] LABS: Anion Gap 12 (12-20); Blood Urea Nitrogen 49 mg/dL (9-16); Carbon Dioxide 23 mmol/L (22-29); Chloride 114 mmol/L (96-108); Estimated Glomerular Filt Rate 58; Glucose Random 87 mg/dL (60-115); Potassium 3.8 mmol/L (3.3-5.1); Sodium 145 mmol/L (135-145)
[2021-08-08 08:00] VITALS: BP 172/80; PULSE 75; RESP 16; TEMP 36.3; O2SAT 98
[2021-08-08] MEDS: Sertraline HCL 50 MG TABLET PO (08:51)
[2021-08-08] MEDS: Aspirin 81 MG TAB.CHEW PO (08:51)
[2021-08-08] MEDS: polyethylene glycoL 3350 17 GM POWD.PACK PO (08:51)
[2021-08-08] MEDS: atenoloL 25 MG TABLET PO (08:51)
[2021-08-08] MEDS: oxyCODONE HCl Immed Release 5 MG TABLET PO (08:51)
[2021-08-08] MEDS: Heparin Sodium,Porcine 5,000 UNIT/ML VIAL 5000 UNIT SUBCUT ×2 (08:51→20:18)
[2021-08-08] MEDS: cefTRIAXone sodium 1 GM in 0.9 % Sodium Chloride 50 ML IV (08:52)
[2021-08-08] MEDS: Docusate Sodium 100 MG CAPSULE PO (08:52)
[2021-08-08 11:44] VITALS: BP 158/67; PULSE 66; RESP 14; TEMP 36.4; O2SAT 98
--- NOTE | 2021-08-08 13:21 | P.PNIM_ITS ---
Subjective Subjective Date of Service: 08/08/21 Interval History: Being followed for UTI and sepsis patient is nonverbal at baseline, no acute issues overnight. Review of Systems Unable to obtain review of system due to underlying dementia Physical Exam Vital Signs: Vital Signs: Last Vital Signs Temp 97.5 F 08/08/21 11:44 Pulse 66 08/08/21 11:44 Resp 14 08/08/21 11:44 BP 158/67 H 08/08/21 11:44 Pulse Ox 98 08/08/21 11:44 General resting comfortably in no acute distress. Neck supple no JVD. CVS regular rate rhythm, Respiratory lungs clear to auscultation, no respiratory distress, no wheeze, no rhonchi. Gastrointestinal abdomen soft, nontender, bowel sounds audible Extremities no edema. Neuro moving all 4 extremity Skin no rash Objective Data Active Medications Acetaminophen (Acetaminophen 325 Mg Tablet) 650 mg PO Q6H PRN PRN Reason: Pain, Mild (Pain Scale 1-3) Amlodipine Besylate (Amlodipine Besylate 5 Mg Tablet) 5 mg PO BEDTIME [facility]; Protocol Last Admin: 08/07/21 21:08 Dose: Not Given Documented by: CHASTITY Non-Admin Reason: Patient Refused Aspirin (Aspirin 81 Mg Tab.Chew) 81 mg PO DAILY [facility] Last Admin: 08/08/21 08:51 Dose: 81 mg Documented by: MARGARITA Atenolol (Atenolol 25 Mg Tablet) 25 mg PO DAILY [facility]; Protocol Last Admin: 08/08/21 08:51 Dose: 25 mg Documented by: MARGARITA Atorvastatin Calcium (Atorvastatin Calcium 10 Mg Tablet) 10 mg PO BEDTIME [facility] Last Admin: 08/07/21 21:08 Dose: Not Given Documented by: CHASTITY Non-Admin Reason: Patient Refused Docusate Sodium (Docusate Sodium 100 Mg Capsule) 100 mg PO DAILY PRN PRN Reason: Constipation Docusate Sodium (Docusate Sodium 100 Mg Capsule) 100 mg PO DAILY [facility] Last Admin: 08/08/21 08:52 Dose: 100 mg Documented by: MARGARITA Heparin Sodium (Porcine) (Heparin Sodium,Porcine 5,000 Unit/Ml Vial) 5,000 unit SUBCUT Q12H [facility] Last Admin: 08/08/21 08:51 Dose: 5,000 unit Documented by: MARGARITA Ceftriaxone Sodium 1 gm/ (Sodium Chloride) 50 mls @ 100 mls/hr IV Q24H [facility] Last Infusion: 08/08/21 09:30 Dose: 100 mls/hr Documented by: MARGARITA Melatonin (Melatonin 3 Mg Tablet) 3 mg PO BEDTIME [facility] Last Admin: 08/07/21 21:08 Dose: Not Given Documented by: CHASTITY Non-Admin Reason: Patient Refused Mirtazapine (Mirtazapine 7.5 Mg Tablet) 7.5 mg PO BEDTIME [facility] Last Admin: 08/07/21 21:08 Dose: Not Given Documented by: CHASTITY Non-Admin Reason: Patient Refused Omeprazole (Omeprazole 20 Mg Capsule.Dr) 20 mg PO DAILY@1630 [facility] Ondansetron HCl (Ondansetron Hcl 4 Mg/2 Ml Vial) 4 mg IVPUSH Q8H PRN PRN Reason: Nausea and Vomiting Oxycodone HCl (Oxycodone Hcl Immed Release 5 Mg Tablet) 5 mg PO Q6H PRN PRN Reason: Pain, Severe (Pain Scale 7-10) Last Admin: 08/08/21 08:51 Dose: 5 mg Documented by: MARGARITA Polyethylene Glycol (Polyethylene Glycol 3350 17 Gm Powd.Pack) 17 gm PO DAILY@0800 [facility] Last Admin: 08/08/21 08:51 Dose: 17 gm Documented by: MARGARITA Sertraline HCl (Sertraline Hcl 50 Mg Tablet) 50 mg PO DAILY [facility] Last Admin: 08/08/21 08:51 Dose: 50 mg Documented by: MARGARITA Labs CBC & Chem 7: 08/08/21 05:43 08/08/21 05:43 Labs: Laboratory Results - last 24 hr 08/08/21 08/08/21 05:43 05:43 MCV 92.5 MCH 30.3 MCHC 32.8 RDW 13.7 Plt Count 189 MPV 9.8 Immature Gran % (Auto) 0.3 Neut % (Auto) 60.8 Lymph % (Auto) 24.1 [place] % (Auto) 8.4 Eos % (Auto) 6.1 H Baso % (Auto) 0.3 Lymph # (Auto) 2.1 [place] # (Auto) 0.7 Eos # (Auto) 0.5 H Baso # (Auto) 0.0 Abs Immat Gran (auto) 0.03 Absolute Neuts (auto) 5.2 Absolute Nucleated RBC 0.000 Nucleated RBC % (auto) 0.0 Anion Gap 12 Estim Creat Clear Calc TNP Estimated GFR 58 Random Glucose 87 Calcium 9.0 Microbiology Microbiology Results: Microbiology 08/07/21 Unknown Urine Culture - Preliminary Urine Catheterized - Vance Catheter Culture in progress. 08/07/21 00:08 Blood Culture - Preliminary Blood - Venous No growth after 24 hours. 08/07/21 00:08 Blood Culture - Preliminary Blood - Venous No growth after 24 hours. Assessment and Plan (1) Sepsis: Status: Acute (2) KRISTINA (acute kidney injury): Status: Acute (3) UTI (urinary tract infection): Status: Acute Assessment and Plan: Patient admitted early this morning for fever and increased lethargy, at baseline patient is nonverbal with past medical history of dementia, CVA, hyperlipidemia chronic anemia, [facility] patient presented with symptoms of fevers and increased lethargy and diagnosed to have sepsis due to UTI and KRISTINA # sepsis secondary to UTI ?? Patient met sepsis criteria due to leukocytosis, and fever WBC normalized, no episodes of recurrent fever, sepsis resolved ?? Will continue IV ceftriaxone day 2 and follow urine culture, blood cultures x2 negative # KRISTINA - most likely secondary to sepsis, creatinine normalized, will DC IV fluids # chronic anemia - hemoglobin dropped likely dilution, since patient asymptomatic hold off on transfusion and follow CBC # BPH continue Flomax # hypertension, initially noted to have low blood pressure, subsequently blood pressure improved now on home medication amlodipine and atenolol , BP remains slightly elevated follow BP and adjust medication # mood disorder/dementia continue home medication # [facility] DVT prophylaxis:? Heparin subQ Quality Stroke Does the patient have a stroke diagnosis?: No VTE Prior VTE?: No VTE Risk Level:: Medical - moderate - high VTE Device Contraindication: Treatment Not Indicated VTE Drug Contraindication: N/A - Med Ordered
[2021-08-08 15:52] VITALS: BP 137/61; PULSE 70; RESP 18; TEMP 36.3; O2SAT 97
[2021-08-08 16:08] VITALS: BMI 25.0
--- NOTE | 2021-08-08 16:18 | MHC.CLN ---
NUTRITION CONSULT PATIENT ASLEEP AT TIME OF VISIT DIET=REGULAR WITH ENSURE CLEAR TID (720 KCAL, 24 G PROTEIN). CONSULT DUE TO REFUSING PO. MONITOR PO CLOSELY.
[2021-08-08] MEDS: Omeprazole 20 MG CAPSULE.DR PO (17:08)
[2021-08-08 19:41] VITALS: BP 169/83; PULSE 77; RESP 18; TEMP 36.7; O2SAT 97
[2021-08-08 20:20] VITALS: BP 169/83; PULSE 77
[2021-08-08] MEDS: Mirtazapine 7.5 MG TABLET PO (20:20)
[2021-08-08] MEDS: Melatonin 3 MG TABLET PO (20:20)
[2021-08-08] MEDS: amLODIPine Besylate 5 MG TABLET PO (20:20)
[2021-08-08] MEDS: Atorvastatin Calcium 10 MG TABLET PO (20:20)
[2021-08-09] VITALS (7 sets, daily range): BP systolic 132–168; BP diastolic 59–72; PULSE 63–70; RESP 18; TEMP 36.2–37.2; O2SAT 96–99
[2021-08-09 06:48] LABS: Hematocrit 24.7 % (42-52); Hemoglobin 7.9 g/dl (14.0-18.0); Mean Corpuscular Hemoglobin 29.5 pg (27.0-33.0); Mean Corpuscular Volume 92.2 fL (80-98); Mean Platelet Volume 9.8 fL (9.4-12.4); Platelet Count 189 X10*3/uL (160-400); Red Blood Count 2.68 X10*6/uL (4.60-5.80); Red Cell Distribution Width 13.5 % (11.0-16.0); White Blood Count 8.9 X10*3/uL (4.8-10.8)
[2021-08-09] MEDS: cefTRIAXone sodium 1 GM in 0.9 % Sodium Chloride 50 ML IV (08:57)
[2021-08-09] MEDS: Aspirin 81 MG TAB.CHEW PO (08:58)
[2021-08-09] MEDS: atenoloL 25 MG TABLET PO (08:58)
[2021-08-09] MEDS: Docusate Sodium 100 MG CAPSULE PO (08:58)
[2021-08-09] MEDS: Sertraline HCL 50 MG TABLET PO (08:58)
[2021-08-09] MEDS: polyethylene glycoL 3350 17 GM POWD.PACK PO (08:58)
--- NOTE | 2021-08-09 11:02 | P.PNIM_ITS ---
Subjective Subjective Date of Service: 08/09/21 Interval History: Being followed for UTI and sepsis patient is nonverbal at baseline, no acute issues overnight, tolerating diet. Review of Systems Unable to obtain review of system due to underlying dementia Physical Exam Vital Signs: Vital Signs: Last Vital Signs Temp 97.6 F 08/09/21 07:54 Pulse 68 08/09/21 08:58 Resp 18 08/09/21 07:54 BP 132/60 08/09/21 08:58 Pulse Ox 96 08/09/21 07:54 Body Mass Index 25.0 General resting comfortably in no acute distress.? Neck? supple no JVD. CVS? regular rate rhythm, Respiratory lungs clear to auscultation, no respiratory distress, no wheeze, no rhonchi. Gastrointestinal abdomen soft, nontender, bowel sounds audible Extremities no edema. Neuro moving all 4 extremity Skin no rash Objective Data Active Medications Acetaminophen (Acetaminophen 325 Mg Tablet) 650 mg PO Q6H PRN PRN Reason: Pain, Mild (Pain Scale 1-3) Amlodipine Besylate (Amlodipine Besylate 5 Mg Tablet) 5 mg PO BEDTIME [facility]; Protocol Last Admin: 08/08/21 20:20 Dose: 5 mg Documented by: EDILIA Aspirin (Aspirin 81 Mg Tab.Chew) 81 mg PO DAILY [facility] Last Admin: 08/09/21 08:58 Dose: 81 mg Documented by: AMANDA Atenolol (Atenolol 25 Mg Tablet) 25 mg PO DAILY [facility]; Protocol Last Admin: 08/09/21 08:58 Dose: 25 mg Documented by: AMANDA Atorvastatin Calcium (Atorvastatin Calcium 10 Mg Tablet) 10 mg PO BEDTIME [facility] Last Admin: 08/08/21 20:20 Dose: 10 mg Documented by: EDILIA Docusate Sodium (Docusate Sodium 100 Mg Capsule) 100 mg PO DAILY PRN PRN Reason: Constipation Docusate Sodium (Docusate Sodium 100 Mg Capsule) 100 mg PO DAILY [facility] Last Admin: 08/09/21 08:58 Dose: 100 mg Documented by: AMANDA Heparin Sodium (Porcine) (Heparin Sodium,Porcine 5,000 Unit/Ml Vial) 5,000 unit SUBCUT Q12H [facility] Last Admin: 08/09/21 08:41 Dose: Not Given Documented by: AMANDA Non-Admin Reason: Physician Held Med Ceftriaxone Sodium 1 gm/ (Sodium Chloride) 50 mls @ 100 mls/hr IV Q24H [facility] Last Infusion: 08/09/21 09:35 Dose: 0 mls/hr Documented by: AMANDA Melatonin (Melatonin 3 Mg Tablet) 3 mg PO BEDTIME [facility] Last Admin: 08/08/21 20:20 Dose: 3 mg Documented by: EDILIA Mirtazapine (Mirtazapine 7.5 Mg Tablet) 7.5 mg PO BEDTIME [facility] Last Admin: 08/08/21 20:20 Dose: 7.5 mg Documented by: EDILIA Omeprazole (Omeprazole 20 Mg Capsule.Dr) 20 mg PO DAILY@1630 [facility] Last Admin: 08/08/21 17:08 Dose: 20 mg Documented by: EDILIA Ondansetron HCl (Ondansetron Hcl 4 Mg/2 Ml Vial) 4 mg IVPUSH Q8H PRN PRN Reason: Nausea and Vomiting Oxycodone HCl (Oxycodone Hcl Immed Release 5 Mg Tablet) 5 mg PO Q6H PRN PRN Reason: Pain, Severe (Pain Scale 7-10) Last Admin: 08/08/21 08:51 Dose: 5 mg Documented by: MARGARITA Polyethylene Glycol (Polyethylene Glycol 3350 17 Gm Powd.Pack) 17 gm PO DAILY@0800 [facility] Last Admin: 08/09/21 08:58 Dose: 17 gm Documented by: AMANDA Sertraline HCl (Sertraline Hcl 50 Mg Tablet) 50 mg PO DAILY [facility] Last Admin: 08/09/21 08:58 Dose: 50 mg Documented by: AMANDA Labs CBC & Chem 7: 08/09/21 06:12 08/08/21 05:43 Labs: Laboratory Results - last 24 hr 08/09/21 06:12 MCV 92.2 MCH 29.5 MCHC 32.0 RDW 13.5 Plt Count 189 MPV 9.8 Absolute Nucleated RBC 0.000 Nucleated RBC % (auto) 0.0 Microbiology Microbiology Results: Microbiology 08/07/21 Unknown Urine Culture - Preliminary Urine Catheterized - Vance Catheter Gram negative parth Enterococcus/Streptococcus sp 08/07/21 00:08 Blood Culture - Preliminary Blood - Venous No growth after 48 hours. 08/07/21 00:08 Blood Culture - Preliminary Blood - Venous No growth after 48 hours. Assessment and Plan (1) Normocytic anemia: Status: Acute (2) KRISTINA (acute kidney injury): Status: Acute (3) Sepsis: Status: Acute (4) UTI (urinary tract infection): Status: Acute Assessment and Plan: Patient admitted early this morning for fever and increased lethargy, at baseline patient is nonverbal with past medical history of dementia, CVA, hyperlipidemia chronic anemia, [facility], patient presented with symptoms of fevers and increased lethargy and diagnosed to have sepsis due to UTI and KRISTINA # sepsis secondary to UTI ?? Sepsis resolved, urine culture growing multiple organism Enterococcus and Gram-negative parth ?? WBC normalized, no episodes of recurrent fever ?? on IV ceftriaxone day 3, will add ampicillin for Enterococcus and follow final culture, blood cultures x2 negative Will obtain ID consult for choice and duration of antibiotic, patient is not on chronic Vance catheter. # KRISTINA - most likely secondary to sepsis, creatinine normalized, s/p IV fluids # chronic anemia - hemoglobin dropped likely dilution, repeat hematocrit stable this morning, hold off on transfusion and follow CBC # BPH continue Flomax # hypertension, initially noted to have low blood pressure, subsequently blood pressure improved now on home medication amlodipine and atenolol , BP is stable this a.m. # mood disorder/dementia continue home medication # DVT prophylaxis on heparin will DC heparin due to anemia and placed on compression boots # [facility] DVT prophylaxis:? Heparin subQ Quality Stroke Does the patient have a stroke diagnosis?: No VTE Prior VTE?: No VTE Risk Level:: Medical - moderate - high VTE Device Contraindication: Treatment Not Indicated VTE Drug Contraindication: N/A - Med Ordered
[2021-08-09] MEDS: Ampicillin Sodium 1 GM in 0.9 % Sodium Chloride 100 ML IV ×2 (12:17→19:32)
[2021-08-09] MEDS: Omeprazole 20 MG CAPSULE.DR PO (16:09)
[2021-08-09] MEDS: Atorvastatin Calcium 10 MG TABLET PO (20:00)
[2021-08-09] MEDS: amLODIPine Besylate 5 MG TABLET PO (20:00)
[2021-08-09] MEDS: Mirtazapine 7.5 MG TABLET PO (20:01)
[2021-08-09] MEDS: Melatonin 3 MG TABLET PO (20:01)
--- NOTE | 2021-08-09 22:56 | W.PM.IDCN ---
History of Present Illness Data of Consult Service Date: 08/09/21 Requesting physician: Brandie Interiano Primary Care Provider: Michele Donaldson MD HPI Reason for consult: fever of unknown origin He presents to hospital with fever and lethargy from [place]way. He has temperature of 101.6 He has urine gram negative rods Review of Systems Review of Systems: Yes Unobtainable due to mental status PMFSH Past Medical History Medical History BPH (benign prostatic hyperplasia) Chronic anemia CVA (cerebral vascular accident) Dementia Dementia HLD (hyperlipidemia) HTN (hypertension) Neuropathy Family History Family history: reviewed and not pertinent Social History Social History Household Members: Other Household Members Other:: nursingn home Housing: Assisted Do you presently have visiting nurse or other home services: No Unable to assess alcohol history related to: Unknown Alcohol intake: unknown Patient Tobacco Use Status: Never used Tobacco service: Yes Current occupational status: disabled Meds Allergies Allergy/AdvReac Type Severity Reaction Status Date / Time morphine [MORPHINE] Allergy Mild UNKNOWN Verified 05/31/21 21:53 erythromycin base Allergy Unknown UNKNOWN Verified 05/31/21 21:53 [ERYTHROMYCIN BASE] valsartan [VALSARTAN] Allergy Unknown UNKNOWN Verified 05/31/21 21:53 Active Medications: Current Medications Acetaminophen (Acetaminophen 325 Mg Tablet) 650 mg PO Q6H PRN PRN Reason: Pain, Mild (Pain Scale 1-3) Amlodipine Besylate (Amlodipine Besylate 5 Mg Tablet) 5 mg PO BEDTIME [facility]; Protocol Last Admin: 08/09/21 20:00 Dose: 5 mg Documented by: Aspirin (Aspirin 81 Mg Tab.Chew) 81 mg PO DAILY [facility] Last Admin: 08/09/21 08:58 Dose: 81 mg Documented by: Atenolol (Atenolol 25 Mg Tablet) 25 mg PO DAILY [facility]; Protocol Last Admin: 08/09/21 08:58 Dose: 25 mg Documented by: Atorvastatin Calcium (Atorvastatin Calcium 10 Mg Tablet) 10 mg PO BEDTIME [facility] Last Admin: 08/09/21 20:00 Dose: 10 mg Documented by: Docusate Sodium (Docusate Sodium 100 Mg Capsule) 100 mg PO DAILY PRN PRN Reason: Constipation Docusate Sodium (Docusate Sodium 100 Mg Capsule) 100 mg PO DAILY [facility] Last Admin: 08/09/21 08:58 Dose: 100 mg Documented by: Ceftriaxone Sodium 1 gm/ (Sodium Chloride) 50 mls @ 100 mls/hr IV Q24H [facility] Last Infusion: 08/09/21 09:35 Dose: Infused Documented by: Ampicillin Sodium 1 gm/ Sodium (Chloride) 100 mls @ 200 mls/hr IV Q8H [facility] Last Infusion: 08/09/21 20:07 Dose: Infused Documented by: Melatonin (Melatonin 3 Mg Tablet) 3 mg PO BEDTIME [facility] Last Admin: 08/09/21 20:01 Dose: 3 mg Documented by: Mirtazapine (Mirtazapine 7.5 Mg Tablet) 7.5 mg PO BEDTIME [facility] Last Admin: 08/09/21 20:01 Dose: 7.5 mg Documented by: Omeprazole (Omeprazole 20 Mg Capsule.Dr) 20 mg PO DAILY@1630 [facility] Last Admin: 08/09/21 16:09 Dose: 20 mg Documented by: Ondansetron HCl (Ondansetron Hcl 4 Mg/2 Ml Vial) 4 mg IVPUSH Q8H PRN PRN Reason: Nausea and Vomiting Oxycodone HCl (Oxycodone Hcl Immed Release 5 Mg Tablet) 5 mg PO Q6H PRN PRN Reason: Pain, Severe (Pain Scale 7-10) Last Admin: 08/08/21 08:51 Dose: 5 mg Documented by: Polyethylene Glycol (Polyethylene Glycol 3350 17 Gm Powd.Pack) 17 gm PO DAILY@0800 [facility] Last Admin: 08/09/21 08:58 Dose: 17 gm Documented by: Sertraline HCl (Sertraline Hcl 50 Mg Tablet) 50 mg PO DAILY [facility] Last Admin: 08/09/21 08:58 Dose: 50 mg Documented by: Home Medications Medication Instructions Recorded Confirmed Last Taken Type amlodipine 5 mg tablet 5 mg PO BEDTIME 04/30/21 08/07/21 05/31/21 21:00 History sertraline 50 mg tablet 50 mg DAILY 04/30/21 08/07/21 05/31/21 09:00 History acetaminophen 325 mg tablet 650 mg PO TID PRN 05/31/21 08/07/21 05/31/21 20:00 History aspirin 81 mg chewable tablet 81 mg PO DAILY 05/31/21 08/07/21 05/31/21 09:00 History atorvastatin 10 mg tablet 10 mg PO BEDTIME 05/31/21 08/07/21 05/31/21 21:00 History docusate sodium 100 mg capsule 100 mg PO DAILY 05/31/21 08/07/21 05/31/21 09:00 History (Colace) fentanyl 50 mcg/hr transdermal 1 patch TRANSDERMAL Q72H 05/31/21 08/07/21 08/04/21 History patch melatonin 3 mg capsule 3 mg PO BEDTIME 05/31/21 08/07/21 05/31/21 21:00 History mirtazapine 15 mg tablet (Remeron) 7.5 mg PO BEDTIME 05/31/21 08/07/21 05/31/21 21:00 History atenolol 25 mg tablet 25 mg PO DAILY 08/07/21 08/07/21 Unknown History chlorhexidine gluconate 0.12 % 15 ml BUCCAL BID 08/07/21 08/07/21 Unknown History mouthwash (Periogard) omeprazole 20 mg capsule,delayed 20 mg PO DAILY@1600 08/07/21 08/07/21 Unknown History release polyethylene glycol 3350 17 17 g PO DAILY@0800 08/07/21 08/07/21 Unknown History gram/dose oral powder (Miralax) Physical Exam Vital Signs: Vital Signs: Last Vital Signs Temp 98.5 F 08/09/21 19:31 Pulse 70 08/09/21 19:31 Resp 18 08/09/21 19:31 BP 168/72 H 08/09/21 19:31 Pulse Ox 99 08/09/21 19:31 Body Mass Index 25.0 Const: General: cooperative HENMT: Head: Yes normal to inspection Mouth: Normal oral and palatal mucosa present Eyes: General: appearance normal, both eyes and all related structures Resp: Effort & Inspection: normal respiratory effort Cardio: Rate: regular rate Rhythm: regular rhythm GI: Palpation (GI): Soft to palpation and nontender Skin: General skin exam: no rashes or lesions noted Results Labs CBC & Chem 7: 08/09/21 06:12 08/08/21 05:43 Labs: Short CBC 08/09/21 Range/Units 06:12 WBC 8.9 (4.8-10.8) X10*3/uL Hgb 7.9 L (14.0-18.0) g/dl Hct 24.7 L (42-52) % Plt Count 189 (160-400) X10*3/uL Microbiology Microbiology Results: Microbiology 08/07/21 Unknown Urine Catheterized - Vance Catheter Urine Culture - Preliminary Gram negative parth Enterococcus/Streptococcus sp 08/07/21 00:08 Blood - Venous Blood Culture - Preliminary No growth after 48 hours. 08/07/21 00:08 Blood - Venous Blood Culture - Preliminary No growth after 48 hours. Assessment and Plan (1) Normocytic anemia: Status: Acute (2) Sepsis: Status: Acute (3) UTI (urinary tract infection): Status: Acute gram negative parth possible enterococcus as well Continue Ampicillin and Ceftriaxone cover above Duration to be determined and await cultures. Await blood cultures
[2021-08-10] VITALS (8 sets, daily range): BP systolic 145–172; BP diastolic 60–72; PULSE 61–79; RESP 16–18; TEMP 36.2–37.1; O2SAT 97–99
[2021-08-10] MEDS: Ampicillin Sodium 1 GM in 0.9 % Sodium Chloride 100 ML IV ×3 (03:55→20:19)
[2021-08-10] MEDS: Docusate Sodium 100 MG CAPSULE PO (08:37)
[2021-08-10] MEDS: polyethylene glycoL 3350 17 GM POWD.PACK PO (08:37)
[2021-08-10] MEDS: atenoloL 25 MG TABLET PO (08:37)
[2021-08-10] MEDS: Sertraline HCL 50 MG TABLET PO (08:38)
[2021-08-10] MEDS: Aspirin 81 MG TAB.CHEW PO (08:38)
[2021-08-10] MEDS: cefTRIAXone sodium 1 GM in 0.9 % Sodium Chloride 50 ML IV (08:38)
--- NOTE | 2021-08-10 12:40 | P.PNIM_ITS ---
Subjective Subjective Date of Service: 08/10/21 Interval History: Being followed for sepsis due to UTI, unable to obtain history since patient is nonverbal and baseline dementia, no acute issues noted overnight Review of Systems Unable to obtain review of system due to dementia Physical Exam Vital Signs: Vital Signs: Last Vital Signs Temp 97.3 F 08/10/21 11:29 Pulse 64 08/10/21 11:29 Resp 18 08/10/21 11:29 BP 155/71 H 08/10/21 11:29 Pulse Ox 97 08/10/21 11:29 Body Mass Index 25.0 General resting comfortably , no acute distress, awake nonverbal Neck? supple no JVD. CVS? regular rate rhythm, Respiratory lungs clear to auscultation, no respiratory distress, no wheeze, no rhonchi. Gastrointestinal abdomen soft, nontender, bowel sounds audible Extremities no edema. Neuro moving all 4 extremity Skin no rash Objective Data Active Medications Acetaminophen (Acetaminophen 325 Mg Tablet) 650 mg PO Q6H PRN PRN Reason: Pain, Mild (Pain Scale 1-3) Amlodipine Besylate (Amlodipine Besylate 5 Mg Tablet) 5 mg PO BEDTIME [facility]; Protocol Last Admin: 08/09/21 20:00 Dose: 5 mg Documented by: TEOFILO Aspirin (Aspirin 81 Mg Tab.Chew) 81 mg PO DAILY [facility] Last Admin: 08/10/21 08:38 Dose: 81 mg Documented by: COTEMA Atenolol (Atenolol 25 Mg Tablet) 25 mg PO DAILY [facility]; Protocol Last Admin: 08/10/21 08:37 Dose: 25 mg Documented by: COTARMANDO Atorvastatin Calcium (Atorvastatin Calcium 10 Mg Tablet) 10 mg PO BEDTIME [facility] Last Admin: 08/09/21 20:00 Dose: 10 mg Documented by: TEOFILO Docusate Sodium (Docusate Sodium 100 Mg Capsule) 100 mg PO DAILY PRN PRN Reason: Constipation Docusate Sodium (Docusate Sodium 100 Mg Capsule) 100 mg PO DAILY [facility] Last Admin: 08/10/21 08:37 Dose: 100 mg Documented by: COTEMA Ceftriaxone Sodium 1 gm/ (Sodium Chloride) 50 mls @ 100 mls/hr IV Q24H [facility] Last Infusion: 08/10/21 09:19 Dose: 0 mls/hr Documented by: COTEMA Ampicillin Sodium 1 gm/ Sodium (Chloride) 100 mls @ 200 mls/hr IV Q8H [facility] Last Infusion: 08/10/21 12:24 Dose: 0 mls/hr Documented by: AMANDA Melatonin (Melatonin 3 Mg Tablet) 3 mg PO BEDTIME [facility] Last Admin: 08/09/21 20:01 Dose: 3 mg Documented by: TEOFILO Mirtazapine (Mirtazapine 7.5 Mg Tablet) 7.5 mg PO BEDTIME [facility] Last Admin: 08/09/21 20:01 Dose: 7.5 mg Documented by: TEOFILO Omeprazole (Omeprazole 20 Mg Capsule.) 20 mg PO DAILY@1630 [facility] Last Admin: 08/09/21 16:09 Dose: 20 mg Documented by: AMANDA Ondansetron HCl (Ondansetron Hcl 4 Mg/2 Ml Vial) 4 mg IVPUSH Q8H PRN PRN Reason: Nausea and Vomiting Oxycodone HCl (Oxycodone Hcl Immed Release 5 Mg Tablet) 5 mg PO Q6H PRN PRN Reason: Pain, Severe (Pain Scale 7-10) Last Admin: 08/08/21 08:51 Dose: 5 mg Documented by: MARGARITA Polyethylene Glycol (Polyethylene Glycol 3350 17 Gm Powd.Pack) 17 gm PO DAILY@0800 [facility] Last Admin: 08/10/21 08:37 Dose: 17 gm Documented by: AMANDA Sertraline HCl (Sertraline Hcl 50 Mg Tablet) 50 mg PO DAILY [facility] Last Admin: 08/10/21 08:38 Dose: 50 mg Documented by: AMANDA Labs CBC & Chem 7: 08/09/21 06:12 08/08/21 05:43 Microbiology Microbiology Results: Microbiology 08/07/21 Unknown Urine Culture - Final Urine Catheterized - Vance Catheter Pseudomonas aeruginosa Enterococcus faecalis Assessment and Plan (1) Sepsis: Status: Acute (2) UTI (urinary tract infection): Status: Acute (3) KRISTINA (acute kidney injury): Status: Acute (4) Normocytic anemia: Status: Acute Assessment and Plan: Patient admitted early this morning for fever and increased lethargy, at baseline patient is nonverbal with past medical history of dementia, CVA, hyperlipidemia chronic anemia, [facility], patient presented with symptoms of fevers and increased lethargy and diagnosed to have sepsis due to UTI and KRISTINA # sepsis secondary to UTI ?? Sepsis resolved, urine culture growing grew Pseudomonas and Enterococcus ?? WBC normalized, no episodes of recurrent fever ?? on IV ceftriaxone day 4, ampicillin for Enterococcus day 2 , blood cultures x2 negative ?? Will follow with ID regarding choice and duration of antibiotic, patient is not on chronic Vance catheter. # KRISTINA - most likely secondary to sepsis, creatinine normalized, s/p IV fluids # chronic anemia - hemoglobin dropped likely dilution, repeat hematocrit stable , hold off on transfusion and follow CBC # BPH continue Flomax # hypertension, initially noted to have low blood pressure, subsequently blood pressure improved now on home medication amlodipine and atenolol , BP is stable this a.m. # mood disorder/dementia continue home medication # DVT prophylaxis on heparin will DC heparin due to anemia and placed on compression boots # [facility] DVT prophylaxis:? Heparin subQ Quality Stroke Does the patient have a stroke diagnosis?: No VTE Prior VTE?: No VTE Risk Level:: Medical - moderate - high VTE Device Contraindication: Treatment Not Indicated VTE Drug Contraindication: N/A - Med Ordered
[2021-08-10] MEDS: Omeprazole 20 MG CAPSULE.DR PO (16:22)
[2021-08-10] MEDS: Atorvastatin Calcium 10 MG TABLET PO (20:20)
[2021-08-10] MEDS: amLODIPine Besylate 5 MG TABLET PO (20:20)
[2021-08-10] MEDS: Melatonin 3 MG TABLET PO (20:20)
[2021-08-10] MEDS: Mirtazapine 7.5 MG TABLET PO (20:21)
[2021-08-11] VITALS (7 sets, daily range): BP systolic 159–178; BP diastolic 72–98; PULSE 63–69; RESP 14–17; TEMP 36.5–36.9; O2SAT 98–100
--- NOTE | 2021-08-11 01:51 | PC.NURSE ---
Pt attempting to get out of bed. Alarm went off. Pt found in pool of large liquid BM. Pt cleaned and changed. New [place] catheter applied. Pt repositioned. Bed alarm on. Will continue to monitor,
[2021-08-11] MEDS: Ampicillin Sodium 1 GM in 0.9 % Sodium Chloride 100 ML IV ×2 (04:33→12:47)
[2021-08-11] MEDS: cefTRIAXone sodium 1 GM in 0.9 % Sodium Chloride 50 ML IV (08:42)
[2021-08-11] MEDS: Sertraline HCL 50 MG TABLET PO (08:43)
[2021-08-11] MEDS: atenoloL 25 MG TABLET PO (08:43)
[2021-08-11] MEDS: Docusate Sodium 100 MG CAPSULE PO (08:43)
[2021-08-11] MEDS: Aspirin 81 MG TAB.CHEW PO (08:43)
--- NOTE | 2021-08-11 10:20 | MHC.CLN ---
F/U DIET=REGULAR WITH ENSURE CLEAR TID (720 KCAL, 24 G PROTEIN). STAGE I TO BUTTOCKS. PATIENT ASLEEP AT TIME OF VISIT TODAY. NURSE REPORTS THAT TAKES ENSURE CLEAR, REQUIRES TOTAL ASSIST WITH FEEDING. PO PER DOC VARIABLE, 0-100%. MONITOR PO CLOSELY.
--- NOTE | 2021-08-11 15:12 | P.PNIM_ITS ---
Subjective Subjective Date of Service: 08/11/21 Interval History: Being followed for sepsis due to UTI, unable to obtain history since patient is nonverbal and baseline dementia, no acute issues noted overnight Review of Systems Unable to obtain review of system as above Physical Exam Vital Signs: Vital Signs: Last Vital Signs Temp 98.0 F 08/11/21 12:00 Pulse 65 08/11/21 12:00 Resp 14 08/11/21 12:00 BP 178/81 H 08/11/21 12:00 Pulse Ox 99 08/11/21 12:00 Body Mass Index 25.0 General resting comfortably , no acute distress, awake nonverbal Neck? supple no JVD. CVS? regular rate rhythm, Respiratory lungs clear to auscultation, no respiratory distress, no wheeze, no rhonchi. Gastrointestinal abdomen soft, nontender, bowel sounds audible Extremities no edema. Neuro moving all 4 extremity Skin no rash Objective Data Active Medications Acetaminophen (Acetaminophen 325 Mg Tablet) 650 mg PO Q6H PRN PRN Reason: Pain, Mild (Pain Scale 1-3) Amlodipine Besylate (Amlodipine Besylate 5 Mg Tablet) 5 mg PO BEDTIME [facility]; Protocol Last Admin: 08/10/21 20:20 Dose: 5 mg Documented by: ARNALDO Aspirin (Aspirin 81 Mg Tab.Chew) 81 mg PO DAILY [facility] Last Admin: 08/11/21 08:43 Dose: 81 mg Documented by: OZZY Atenolol (Atenolol 25 Mg Tablet) 25 mg PO DAILY [facility]; Protocol Last Admin: 08/11/21 08:43 Dose: 25 mg Documented by: OZZY Atorvastatin Calcium (Atorvastatin Calcium 10 Mg Tablet) 10 mg PO BEDTIME [facility] Last Admin: 08/10/21 20:20 Dose: 10 mg Documented by: ARNALDO Docusate Sodium (Docusate Sodium 100 Mg Capsule) 100 mg PO DAILY PRN PRN Reason: Constipation Docusate Sodium (Docusate Sodium 100 Mg Capsule) 100 mg PO DAILY [facility] Last Admin: 08/11/21 08:43 Dose: 100 mg Documented by: OZZY Meropenem 1 gm/ Sodium (Chloride) 100 mls @ 100 mls/hr IV Q12H [facility] Melatonin (Melatonin 3 Mg Tablet) 3 mg PO BEDTIME [facility] Last Admin: 08/10/21 20:20 Dose: 3 mg Documented by: ARNALDO Mirtazapine (Mirtazapine 7.5 Mg Tablet) 7.5 mg PO BEDTIME [facility] Last Admin: 08/10/21 20:21 Dose: 7.5 mg Documented by: ARNALDO Omeprazole (Omeprazole 20 Mg Capsule.) 20 mg PO DAILY@1630 [facility] Last Admin: 08/10/21 16:22 Dose: 20 mg Documented by: COTEMA Ondansetron HCl (Ondansetron Hcl 4 Mg/2 Ml Vial) 4 mg IVPUSH Q8H PRN PRN Reason: Nausea and Vomiting Oxycodone HCl (Oxycodone Hcl Immed Release 5 Mg Tablet) 5 mg PO Q6H PRN PRN Reason: Pain, Severe (Pain Scale 7-10) Last Admin: 08/08/21 08:51 Dose: 5 mg Documented by: MARGARITA Polyethylene Glycol (Polyethylene Glycol 3350 17 Gm Powd.Pack) 17 gm PO ELLE Y@0800 [facility] Last Admin: 08/11/21 08:47 Dose: Not Given Documented by: OZZY Non-Admin Reason: diarrhea Sertraline HCl (Sertraline Hcl 50 Mg Tablet) 50 mg PO DAILY [facility] Last Admin: 08/11/21 08:43 Dose: 50 mg Documented by: OZZY Labs CBC & Chem 7: 08/09/21 06:12 08/08/21 05:43 Assessment and Plan (1) Normocytic anemia: Status: Acute (2) KRISTINA (acute kidney injury): Status: Acute (3) Sepsis: Status: Acute (4) UTI (urinary tract infection): Status: Acute Assessment and Plan: Patient admitted early this morning for fever and increased lethargy, at baseline patient is nonverbal with past medical history of dementia, CVA, hyperlipidemia chronic anemia, patient is resident of [facility], patient presented with symptoms of fevers and increased lethargy and diagnosed to have sepsis due to UTI and KRISTINA # sepsis secondary to UTI ?? Sepsis resolved, urine culture growing grew Pseudomonas and Enterococcus ?? WBC normalized, no episodes of recurrent fever ?? Case discussed with ID she recommend IV meropenem 1 g Q 12 hours renally dose, for 2 weeks , will place PICC line , blood cultures x2 negative multimedia services manager will arrange for rehab bed to received IV antibiotic [facility] ?? # KRISTINA - most likely secondary to sepsis, creatinine normalized, s/p IV fluids # chronic anemia - hemoglobin dropped likely dilution, repeat hematocrit stable , hold off on transfusion and follow CBC # BPH continue Flomax # hypertension, initially noted to have low blood pressure, subsequently blood pressure improved now on home medication amlodipine and atenolol , BP is stable this a.m. # mood disorder/dementia continue home medication # DVT prophylaxis on heparin will DC heparin due to anemia and placed on compression boots # disposition back to [facility] DVT prophylaxis:? Heparin subQ Quality Stroke Does the patient have a stroke diagnosis?: No VTE Prior VTE?: No VTE Risk Level:: Medical - moderate - high VTE Device Contraindication: Treatment Not Indicated VTE Drug Contraindication: N/A - Med Ordered
[2021-08-11] MEDS: Omeprazole 20 MG CAPSULE.DR PO (15:45)
--- NOTE | 2021-08-11 16:06 | PM.EVENT ---
Event Note Date of Service: 08/11/21 Event Note: would give 10 days of Zosyn cover enterococcus and Pseudomonas
--- NOTE | 2021-08-11 16:08 | MHC.CM.PN ---
PT CLEARED TO DC TODAY PENDING PICC PLACEMENT AND SNF BED OFFER. PT WILL NEED 14 DAYS OF MEROPENEM HOWEVER THE HS DOES NOT DO IV MEDS. CM CALLED PTS DAUGHTER, DAILY, WHO REQUESTED REFERRALS [facility] AND [facility]. [facility] OFFERING A BED BUT REQUESTING ADMISSION TOMORROW (08/12) PT DOES CARRY A DEMENTIA DIAGNOSIS AND MAY HAVE DIFFICULTY TRANSITIONING LATE IN THE DAY. PTS DAUGHTER AND [facility] NOTIFIED OF THE BED OFFER. DC PLAN IS [facility] WEDNESDAY FOR 14 DAYS OF MEROPENEM 1G BID PT WILL NEED BLS TRANSPORT
[2021-08-11 16:34] LABS: COVID-19 Test Negative (Negative)
[2021-08-11] MEDS: Mirtazapine 7.5 MG TABLET PO (20:43)
[2021-08-11] MEDS: amLODIPine Besylate 5 MG TABLET PO (20:43)
[2021-08-11] MEDS: Atorvastatin Calcium 10 MG TABLET PO (20:43)
[2021-08-11] MEDS: Melatonin 3 MG TABLET PO (20:43)
[2021-08-12] VITALS (7 sets, daily range): BP systolic 155–182; BP diastolic 66–82; PULSE 60–70; RESP 16–20; TEMP 36.4–36.9; O2SAT 97–100
[2021-08-12 06:07] LABS: MANUAL DIFF FLAG NO
[2021-08-12 06:09] LABS: Basophils Percent Auto 0.4 % (0-2); Eosinophils Absolute Auto 0.4 X10*3/uL (0.0-0.4); Eosinophils Percent Auto 4.3 % (0-4); Hematocrit 26.5 % (42-52); Hemoglobin 8.8 g/dl (14.0-18.0); Imm Gran Abs Auto 0.04 X10*3/uL (0.00-0.03); Imm Gran Pct Auto 0.4 % (0.0-0.4); Lymphocytes Absolute Auto 1.6 X10*3/uL (1.2-4.9); Lymphocytes Percent Auto 16.4 % (20-40); Mean Corpuscular HGB Conc 33.2 g/dl (31.0-36.0); Mean Corpuscular Hemoglobin 29.4 pg (27.0-33.0); Mean Corpuscular Volume 88.6 fL (80-98); Mean Platelet Volume 9.3 fL (9.4-12.4); Monocytes Percent Auto 10.2 % (2-11); Neutrophils Absolute Auto 6.6 X10*3/uL (2.0-8.3); Neutrophils Percent Auto 68.3 % (45-73); Platelet Count 200 X10*3/uL (160-400); Red Blood Count 2.99 X10*6/uL (4.60-5.80); Red Cell Distribution Width 13.4 % (11.0-16.0); White Blood Count 9.7 X10*3/uL (4.8-10.8)
[2021-08-12 06:25] LABS: Anion Gap 13 (12-20); Blood Urea Nitrogen 27 mg/dL (9-16); Carbon Dioxide 22 mmol/L (22-29); Chloride 111 mmol/L (96-108); Creatinine Clr Calc Pharmacy 63.5; Estimated Glomerular Filt Rate > 60; Glucose Random 93 mg/dL (60-115); Potassium 3.2 mmol/L (3.3-5.1); Sodium 143 mmol/L (135-145)
[2021-08-12] MEDS: Aspirin 81 MG TAB.CHEW PO (07:49)
[2021-08-12] MEDS: atenoloL 25 MG TABLET PO (07:49)
[2021-08-12] MEDS: Sertraline HCL 50 MG TABLET PO (07:50)
[2021-08-12] MEDS: Potassium Chloride ER 20 MEQ TAB.ER.PRT 40 MEQ PO (07:50)
[2021-08-12] MEDS: Piperacillin Sodium/Tazobactam 3.375 GM in 0.9 % Sodium Chloride 50 ML IV ×2 (07:50→14:35)
[2021-08-12] MEDS: fentaNYL 50 MCG PATCH.TD72 TRANSDERMA (09:08)
--- NOTE | 2021-08-12 09:15 | PC.NURSE ---
old 50 mcg fentanly patch removed from back of left shoulder blade , bernadette baca rn witness , new 50mcg patch applied to back for left shoulder blade
[2021-08-12 09:38] LABS: COVID-19 Test Negative (Negative)
--- NOTE | 2021-08-12 10:18 | P.CDIC_ITS ---
CDI Concurrent Query Documentation Clarification: PHYSICIAN'S DOCUMENTATION REQUEST Date of Query: 08/12/21 1020 Patient Name: Eric Giordano Admit Date: 08/07/21 Dear Doctor, A review of the medical record indicates additional documentation may be needed. Please review below and update the documentation accordingly. Clinical Indicators: Risk Factors/Clinical Indicators/Treatments progress note 08/10/21: at baseline, patient is nonverbal with past medical history of dementia, CVA Based on the above, could you clarify in the Progress Notes which, if any of the following, is the most likely etiology of the confusion/altered mental status? * Dementia - indicate type of dementia, such as Alzheimer's, senile, vascular, Lewy body, etc. * Baseline dementia - indicate type, such as Alzheimer's, senile, vascular, Lewy body, etc., and any associated behavioral disturbances (aggressive, combative, or violent behavior) * Other etiology (please specify) * Unable to determine Use of terms such as suspected, likely, concern for, or probable (associated with a specific diagnosis that is being evaluated, monitored, or treated as if it exists) are acceptable and can be coded in the inpatient setting, when documented at the time of discharge. Thank you, Sabiha Cueva RN Extension: [phone] Please use your independent medical judgment in providing your response. THIS QUERY IS PART OF THE PERMANENT MEDICAL RECORD Provider Response: Other Other Diagnosis: Dementia no behavioral issues probable Alzheimer's
[2021-08-12] MEDS: LORazepam 0.5 MG TABLET PO (11:24)
--- NOTE | 2021-08-12 12:53 | HO.PM.IMPN ---
Subjective Subjective Date of Service: 08/12/21 Interval History: Being followed for sepsis due to UTI, unable to obtain history since patient is nonverbal and baseline dementia, no acute issues noted overnight. Review of Systems Unable to obtain review of system as above Physical Exam Vital Signs: Vital Signs: Last Vital Signs Temp 97.9 F 08/12/21 11:31 Pulse 61 08/12/21 11:31 Resp 18 08/12/21 11:31 BP 156/72 H 08/12/21 11:31 Pulse Ox 99 08/12/21 11:31 Body Mass Index 25.0 General resting comfortably , no acute distress, awake nonverbal, no behavioral issues Neck? supple no JVD. CVS? regular rate rhythm, Respiratory lungs clear to auscultation, no respiratory distress, no wheeze, no rhonchi. Gastrointestinal abdomen soft, nontender, bowel sounds audible Extremities no edema. Neuro moving all 4 extremity Skin no rash Objective Data Active Medications Acetaminophen (Acetaminophen 325 Mg Tablet) 650 mg PO Q6H PRN PRN Reason: Pain, Mild (Pain Scale 1-3) Amlodipine Besylate (Amlodipine Besylate 5 Mg Tablet) 5 mg PO BEDTIME [facility]; Protocol Last Admin: 08/11/21 20:43 Dose: 5 mg Documented by: HANY Aspirin (Aspirin 81 Mg Tab.Chew) 81 mg PO DAILY [facility] Last Admin: 08/12/21 07:49 Dose: 81 mg Documented by: AMADOU Atenolol (Atenolol 25 Mg Tablet) 25 mg PO DAILY [facility]; Protocol Last Admin: 08/12/21 07:49 Dose: 25 mg Documented by: AMADOU Atorvastatin Calcium (Atorvastatin Calcium 10 Mg Tablet) 10 mg PO BEDTIME [facility] Last Admin: 08/11/21 20:43 Dose: 10 mg Documented by: HANY Docusate Sodium (Docusate Sodium 100 Mg Capsule) 100 mg PO DAILY PRN PRN Reason: Constipation Docusate Sodium (Docusate Sodium 100 Mg Capsule) 100 mg PO DAILY [facility] Last Admin: 08/12/21 07:05 Dose: Not Given Documented by: AMADOU Non-Admin Reason: loose stools Fentanyl (Fentanyl 50 Mcg Patch.[id number]) 50 mcg TRANSDERMA Q72H [facility] Last Admin: 08/12/21 09:08 Dose: 50 mcg Documented by: AMADOU Piperacillin Sod/Tazobactam (Sod 3.375 gm/ Sodium Chloride) 50 mls @ 100 mls/hr IV Q6H [facility] Last Infusion: 08/12/21 08:26 Dose: 0 mls/hr Documented by: AMADOU Melatonin (Melatonin 3 Mg Tablet) 3 mg PO BEDTIME [facility] Last Admin: 08/11/21 20:43 Dose: 3 mg Documented by: HANY Mirtazapine (Mirtazapine 7.5 Mg Tablet) 7.5 mg PO BEDTIME [facility] Last Admin: 08/11/21 20:43 Dose: 7.5 mg Documented by: HANY Omeprazole (Omeprazole 20 Mg Capsule.Dr) 20 mg PO DAILY@1630 [facility] Last Admin: 08/11/21 15:45 Dose: 20 mg Documented by: OZZY Ondansetron HCl (Ondansetron Hcl 4 Mg/2 Ml Vial) 4 mg IVPUSH Q8H PRN PRN Reason: Nausea and Vomiting Oxycodone HCl (Oxycodone Hcl Immed Release 5 Mg Tablet) 5 mg PO Q6H PRN PRN Reason: Pain, Severe (Pain Scale 7-10) Last Admin: 08/08/21 08:51 Dose: 5 mg Documented by: MARGARITA Polyethylene Glycol (Polyethylene Glycol 3350 17 Gm Powd.Pack) 17 gm PO DAILY@0800 [facility] Last Admin: 08/12/21 07:05 Dose: Not Given Documented by: AMADOU Non-Admin Reason: loose stoool Sertraline HCl (Sertraline Hcl 50 Mg Tablet) 50 mg PO DAILY [facility] Last Admin: 08/12/21 07:50 Dose: 50 mg Documented by: AMADOU Labs CBC & Chem 7: 08/12/21 05:51 08/12/21 05:51 Labs: Laboratory Results - last 24 hr 08/11/21 08/12/21 08/12/21 16:07 05:51 05:51 MCV 88.6 MCH 29.4 MCHC 33.2 RDW 13.4 Plt Count 200 MPV 9.3 L Immature Gran % (Auto) 0.4 Neut % (Auto) 68.3 Lymph % (Auto) 16.4 L Pickett % (Auto) 10.2 Eos % (Auto) 4.3 H Baso % (Auto) 0.4 Lymph # (Auto) 1.6 Pickett # (Auto) 1.0 Eos # (Auto) 0.4 Baso # (Auto) 0.0 Abs Immat Gran (auto) 0.04 H Absolute Neuts (auto) 6.6 Absolute Nucleated RBC 0.000 Nucleated RBC % (auto) 0.0 Anion Gap 13 Estim Creat Clear Calc 63.5 Estimated GFR > 60 Random Glucose 93 Calcium 9.0 COVID-19 (GRACIE) Negative COVID-19 Clin Com See Note 08/12/21 09:15 MCV MCH MCHC RDW Plt Count MPV Immature Gran % (Auto) Neut % (Auto) Lymph % (Auto) Pickett % (Auto) Eos % (Auto) Baso % (Auto) Lymph # (Auto) Pickett # (Auto) Eos # (Auto) Baso # (Auto) Abs Immat Gran (auto) Absolute Neuts (auto) Absolute Nucleated RBC Nucleated RBC % (auto) Anion Gap Estim Creat Clear Calc Estimated GFR Random Glucose Calcium COVID-19 (GRACIE) Negative COVID-19 Clin Com See Note Microbiology Microbiology Results: Microbiology 08/07/21 00:08 Blood Culture - Final Blood - Venous No growth after 5 days. 08/07/21 00:08 Blood Culture - Final Blood - Venous No growth after 5 days. Assessment and Plan (1) Normocytic anemia: Status: Acute (2) KRISTINA (acute kidney injury): Status: Acute (3) Sepsis: Status: Acute (4) UTI (urinary tract infection): Status: Acute Assessment and Plan: Patient admitted early this morning for fever and increased lethargy, at baseline patient is nonverbal with past medical history of dementia, CVA, hyperlipidemia chronic anemia, [facility], patient presented with symptoms of fevers and increased lethargy and diagnosed to have sepsis due to UTI and KRISTINA # sepsis secondary to UTI ?? Sepsis resolved, urine culture growing grew Pseudomonas and Enterococcus, blood cultures negative ?? WBC normalized, no episodes of recurrent fever ?? Case discussed with ID she recommend IV zosyn x 10 days , patient unable to tolerate procedure for PICC line/midline ?? Will discuss with ID regarding alternate antibiotics ?? # KRISTINA - most likely secondary to sepsis, creatinine normalized, s/p IV fluids # chronic anemia - hemoglobin dropped likely dilution, repeat hematocrit stable , hold off on transfusion and follow CBC # BPH continue Flomax # hypertension, initially noted to have low blood pressure, subsequently blood pressure improved now on home medication amlodipine and atenolol , BP is stable this a.m. # mood disorder/dementia no behavioral issues, cause of dementia not known probably Alzheimer continue home medication # DVT prophylaxis on heparin will DC heparin due to anemia and placed on compression boots # disposition back to [facility] DVT prophylaxis:? Heparin subQ Quality Stroke Does the patient have a stroke diagnosis?: No VTE Prior VTE?: No VTE Risk Level:: Medical - moderate - high VTE Device Contraindication: Treatment Not Indicated VTE Drug Contraindication: N/A - Med Ordered
--- NOTE | 2021-08-12 13:25 | PM.DS ---
DS: Providers Provider Date of Service: 08/12/21 Date of admission: 08/07/21 03:06 Primary care physician: Michele Donaldson MD Consults: 08/09/21 11:13 Consult to Infectious Diseases Stat Consulting Provider: Basilia Coe Reason for consultation: uti multiple org Has provider been notified: No 08/11/21 14:31 Consult to Infectious Diseases Routine Consulting Provider: aBsilia Coe Reason for consultation: uti Has provider been notified: Yes DS: Diagnosis Discharge Diagnosis (1) Normocytic anemia: Status: Acute (2) KIRSTINA (acute kidney injury): Status: Acute (3) Sepsis: Status: Acute (4) UTI (urinary tract infection): Status: Acute DS: Summary Hospital Course Hospital Course: Chief Complaint: Fever and increased lethargy 85-year-old male with past medical history of BPH, dementia, non verbal at baseline, HTN, CVA, HLD, chronic anemia presents to the hospital from [facility] with reported 2 days of fever, and increased lethargy.? Patient is not verbal at baseline therefore unable to obtain much history from him therefore history is obtained from ED staff and EMR On arrival to the ED patient found to have a temperature of a 100.5?, heart rate of 83, respiratory rate of 16, blood pressure 137/60, satting 95% on room air Labs on arrival are significant for WBC count of 15.3, hemoglobin of 9.4 which is around his baseline, BUN of 57, creatinine of 1.64 with a baseline of 1.2, UA positive for nitrites, leukocyte Estrace, WBC, COVID-19, influenza and RSV negative Patient will be admitted for further management Hospital course Patient admitted early this morning for fever and increased lethargy, at baseline patient is nonverbal with past medical history of dementia, CVA, hyperlipidemia chronic anemia, [facility], patient presented with symptoms of fevers and increased lethargy and diagnosed to have sepsis due to UTI and KRISTINA # sepsis secondary to UTI, urine culture grew Pseudomonas and Enterococcus, blood cultures negative, WBC normalized, no episodes of recurrent fever, id recommend fosfomycin 3 g Q 72 hours for 3 doses ?? # KRISTINA - most likely secondary to sepsis, creatinine normalized, s/p IV fluids # chronic anemia - hemoglobin dropped likely dilution, repeat hematocrit stable did not require blood transfusion. # BPH continue Flomax # hypertension, initially noted to have low blood pressure, subsequently blood pressure improved now on home medication amlodipine and atenolol , BP is stable # mood disorder/dementia no behavioral issues, cause of dementia not known probably Alzheimer continue home medication Time Spent with Patient Time attestation: Total time spent providing and/or coordinating discharge services: Discharge coordination time: Greater than 30 minutes Quality: Stroke Does the patient have a stroke diagnosis?: No Physical Exam Vital Signs: Vital Signs: Last Vital Signs Temp 97.9 F 08/12/21 11:31 Pulse 61 08/12/21 11:31 Resp 18 08/12/21 11:31 BP 156/72 H 08/12/21 11:31 Pulse Ox 99 08/12/21 11:31 Body Mass Index 25.0 General resting comfortably , no acute distress, awake nonverbal, no behavioral issues Neck? supple no JVD. CVS? regular rate rhythm, Respiratory lungs clear to auscultation, no respiratory distress, no wheeze, no rhonchi. Gastrointestinal abdomen soft, nontender, bowel sounds audible Extremities no edema. Neuro moving all 4 extremity Skin no rash DS: Data Data Completed and Pending Labs on day of discharge: Laboratory Results - last 24 hr 08/11/21 08/12/21 08/12/21 16:07 05:51 05:51 WBC 9.7 RBC 2.99 L Hgb 8.8 L Hct 26.5 L MCV 88.6 MCH 29.4 MCHC 33.2 RDW 13.4 Plt Count 200 MPV 9.3 L Immature Gran % (Auto) 0.4 Neut % (Auto) 68.3 Lymph % (Auto) 16.4 L [place] % (Auto) 10.2 Eos % (Auto) 4.3 H Baso % (Auto) 0.4 Lymph # (Auto) 1.6 [place] # (Auto) 1.0 Eos # (Auto) 0.4 Baso # (Auto) 0.0 Abs Immat Gran (auto) 0.04 H Absolute Neuts (auto) 6.6 Absolute Nucleated RBC 0.000 Nucleated RBC % (auto) 0.0 Sodium 143 Potassium 3.2 L Chloride 111 H Carbon Dioxide 22 Anion Gap 13 BUN 27 H Creatinine 0.91 Estim Creat Clear Calc 63.5 Estimated GFR > 60 Random Glucose 93 Calcium 9.0 COVID-19 (GRACIE) Negative COVID-19 Clin Com See Note 08/12/21 09:15 WBC RBC Hgb Hct MCV MCH MCHC RDW Plt Count MPV Immature Gran % (Auto) Neut % (Auto) Lymph % (Auto) [place] % (Auto) Eos % (Auto) Baso % (Auto) Lymph # (Auto) [place] # (Auto) Eos # (Auto) Baso # (Auto) Abs Immat Gran (auto) Absolute Neuts (auto) Absolute Nucleated RBC Nucleated RBC % (auto) Sodium Potassium Chloride Carbon Dioxide Anion Gap BUN Creatinine Estim Creat Clear Calc Estimated GFR Random Glucose Calcium COVID-19 (GRACIE) Negative COVID-19 Clin Com See Note Discharge Plan Discharge Patient Disposition: [facility] Discharge Diagnosis: Sepsis Due to UTI Acute renal failure Chronic anemia Referrals: Michele Donaldson MD [Primary Care Provider] - 1 Week Discharge Medications: New fosfomycin tromethamine 3 gram packet 3 g PO Q3D Qty: 3 RF: 0 Continued tamsulosin 0.4 mg Capsule 0.4 mg PO DAILY@1999 Qty: 30 RF: 0 oxycodone 5 mg Tablet 5 mg PO Q6H PRN (Reason: Pain, Severe (Pain Scale 7-10)) Qty: 30 RF: 0 amlodipine 5 mg Tablet 5 mg PO BEDTIME RF: 0 sertraline 50 mg Tablet 50 mg DAILY RF: 0 fentanyl 50 mcg/hr Patch 72 Hour 1 patch TRANSDERMAL Q72H RF: 0 docusate sodium [Colace] 100 mg Capsule 100 mg PO DAILY RF: 0 mirtazapine [Remeron] 15 mg Tablet 7.5 mg PO BEDTIME RF: 0 melatonin 3 mg Capsule 3 mg PO BEDTIME RF: 0 acetaminophen 325 mg tablet 650 mg PO TID PRN (Reason: Pain, Mild (Pain Scale 1-3)) RF: 0 atorvastatin 10 mg tablet 10 mg PO BEDTIME RF: 0 aspirin 81 mg tablet,chewable 81 mg PO DAILY RF: 0 polyethylene glycol 3350 [Miralax] 17 gram/dose Powder 17 g PO DAILY@0800 RF: 0 chlorhexidine gluconate [Periogard] 0.12 % Mouthwash 15 ml BUCCAL BID RF: 0 atenolol 25 mg tablet 25 mg PO DAILY RF: 0 omeprazole 20 mg capsule,delayed release(DR/EC) 20 mg PO DAILY@1600 RF: 0 Discharge Orders: Discharge Order (Routine); Ordered 08/12/21 Ordered By: Brandie Interiano Diet: advance to usual diet Activity on Discharge: As tolerated Stand Alone Forms: Patient Portal Discharge page Care Plan Goals: Sepsis due to UTI continue antibiotics as prescribed Health Concerns: Dementia/chronic anemia/hypertension continue all home medications as before Plan of Treatment: Outpatient follow-up with primary care physician in 7-10 days Assessment: as above
--- NOTE | 2021-08-12 15:45 | MHC.CM.PN ---
Patient is not able to return to [facility] on an IV ABT. ID approved the use of PO Fosfomycin, but [facility] is not able to get this non formulary med. [facility] is looking into whether or not they are able to skill Patient on a PO med. CM awaits a return call from Gisele at [facility]. CM will follow.
--- NOTE | 2021-08-12 16:14 | MHC.CM.PN ---
PAPER RX FAXED TO PETR AT [facility] AT NUMBER [phone] [facility] ANTICIPATES HAVING RX DELIVERED TO [facility] [place] FOR TOMORROW (08/13/21) PETR VERIFIED ([phone]) THAT RX IS IN THE SYSTEM AND BEING PROCESSED. SARAH MONTIEL OF [facility] ([phone]) STATES THAT TONIGHT IS TOO LATE TO SEND PATIENT BACK SARAH AGREES THAT PATIENT CAN DC TOMORROW MORNING (EARLIEST IS BEST) RN, UNIT, [facility], AND PATIENT'S DAUGHTER AWARE OF PLAN. CASE MANAGEMENT TO COMPLETE NEW MED NEC. FORM TO TRANSPORT TO FACILITY.
[2021-08-12] MEDS: Omeprazole 20 MG CAPSULE.DR PO (16:18)
--- NOTE | 2021-08-12 16:21 | MHC.CM.PN ---
YANNI has informed Daughter/HCP/Verito that Patient is not being dc today. Verito is in agreement with the change in dc plan and she requested that CM NOT send another IMM.
[2021-08-12] MEDS: Mirtazapine 7.5 MG TABLET PO (19:59)
[2021-08-12] MEDS: Melatonin 3 MG TABLET PO (19:59)
[2021-08-12] MEDS: amLODIPine Besylate 5 MG TABLET PO (20:00)
[2021-08-12] MEDS: Atorvastatin Calcium 10 MG TABLET PO (20:00)
[2021-08-13 04:00] VITALS: BP 160/71; PULSE 64; RESP 17; TEMP 36.4; O2SAT 97
[2021-08-13 08:00] VITALS: BP 189/81; PULSE 66; RESP 16; TEMP 36.4; O2SAT 98
[2021-08-13] MEDS: polyethylene glycoL 3350 17 GM POWD.PACK PO (09:07)
[2021-08-13] MEDS: Aspirin 81 MG TAB.CHEW PO (09:07)
[2021-08-13] MEDS: Sertraline HCL 50 MG TABLET PO (09:07)
[2021-08-13] MEDS: atenoloL 25 MG TABLET PO (09:07)
--- NOTE | 2021-08-13 10:10 | PM.DS ---
DS: Providers Provider Date of Service: 08/13/21 Date of admission: 08/07/21 03:06 Primary care physician: Michele Donaldson MD Consults: 08/09/21 11:13 Consult to Infectious Diseases Stat Consulting Provider: Basilia Coe Reason for consultation: uti multiple org Has provider been notified: No 08/11/21 14:31 Consult to Infectious Diseases Routine Consulting Provider: Basilia Coe Reason for consultation: uti Has provider been notified: Yes DS: Diagnosis Discharge Diagnosis (1) Normocytic anemia: Status: Acute (2) KRISTINA (acute kidney injury): Status: Acute (3) Sepsis: Status: Acute (4) UTI (urinary tract infection): Status: Acute DS: Summary Hospital Course Hospital Course: Chief Complaint: Fever and increased lethargy 85-year-old male with past medical history of BPH, dementia, non verbal at baseline, HTN, CVA, HLD, chronic anemia presents to the hospital from [facility] with reported 2 days of fever, and increased lethargy.? Patient is not verbal at baseline therefore unable to obtain much history from him therefore history is obtained from ED staff and EMR On arrival to the ED patient found to have a temperature of a 100.5?, heart rate of 83, respiratory rate of 16, blood pressure 137/60, satting 95% on room air Labs on arrival are significant for WBC count of 15.3, hemoglobin of 9.4 which is around his baseline, BUN of 57, creatinine of 1.64 with a baseline of 1.2, UA positive for nitrites, leukocyte Estrace, WBC, COVID-19, influenza and RSV negative Patient will be admitted for further management Hospital course Patient admitted early this morning for fever and increased lethargy, at baseline patient is nonverbal with past medical history of dementia, CVA, hyperlipidemia chronic anemia, [facility], patient presented with symptoms of fevers and increased lethargy and diagnosed to have sepsis due to UTI and KRISTINA # sepsis secondary to UTI, urine culture grew Pseudomonas and Enterococcus, blood cultures negative, WBC normalized, no episodes of recurrent fever, id recommend fosfomycin 3 g Q 72 hours for 3 doses Patient is being transferred [facility] ?? # KRISTINA - most likely secondary to sepsis, creatinine normalized, s/p IV fluids # chronic anemia - hemoglobin dropped likely dilution, repeat hematocrit stable did not require blood transfusion. # BPH continue Flomax # hypertension, initially noted to have low blood pressure, subsequently blood pressure improved now on home medication amlodipine and atenolol , BP is stable # mood disorder/dementia no behavioral issues, cause of dementia not known probably Alzheimer continue home medication # mild left upper eyelid swelling noted this a.m. recommend close follow-up Time Spent with Patient Time attestation: Total time spent providing and/or coordinating discharge services: Discharge coordination time: Greater than 30 minutes Quality: Stroke Does the patient have a stroke diagnosis?: No Physical Exam Vital Signs: Vital Signs: Last Vital Signs Temp 97.6 F 08/13/21 08:00 Pulse 66 08/13/21 08:00 Resp 16 08/13/21 08:00 BP 189/81 H 08/13/21 08:00 Pulse Ox 98 08/13/21 08:00 Body Mass Index 25.0 General resting comfortably , no acute distress, awake nonverbal, no behavioral issues Left upper eyelid mild swelling and hyperemia, no drainage from the eye Neck? supple no JVD. CVS? regular rate rhythm, Respiratory lungs clear to auscultation, no respiratory distress, no wheeze, no rhonchi. Gastrointestinal abdomen soft, nontender, bowel sounds audible Extremities no edema. Neuro moving all 4 extremity Skin no rash Discharge Plan Discharge Patient Disposition: er SNF Discharge Diagnosis: Sepsis Due to UTI Acute renal failure Chronic anemia Referrals: [facility] [Outside] - 1 Week Michele Donaldson MD [Primary Care Provider] - 1 Week Discharge Medications: New fosfomycin tromethamine 3 gram packet 1 packet PO Q3D Qty: 1 RF: 0 Continued tamsulosin 0.4 mg Capsule 0.4 mg PO DAILY@1999 Qty: 30 RF: 0 oxycodone 5 mg Tablet 5 mg PO Q6H PRN (Reason: Pain, Severe (Pain Scale 7-10)) Qty: 30 RF: 0 amlodipine 5 mg Tablet 5 mg PO BEDTIME RF: 0 sertraline 50 mg Tablet 50 mg DAILY RF: 0 fentanyl 50 mcg/hr Patch 72 Hour 1 patch TRANSDERMAL Q72H RF: 0 docusate sodium [Colace] 100 mg Capsule 100 mg PO DAILY RF: 0 mirtazapine [Remeron] 15 mg Tablet 7.5 mg PO BEDTIME RF: 0 melatonin 3 mg Capsule 3 mg PO BEDTIME RF: 0 acetaminophen 325 mg tablet 650 mg PO TID PRN (Reason: Pain, Mild (Pain Scale 1-3)) RF: 0 atorvastatin 10 mg tablet 10 mg PO BEDTIME RF: 0 aspirin 81 mg tablet,chewable 81 mg PO DAILY RF: 0 polyethylene glycol 3350 [Miralax] 17 gram/dose Powder 17 g PO DAILY@0800 RF: 0 chlorhexidine gluconate [Periogard] 0.12 % Mouthwash 15 ml BUCCAL BID RF: 0 atenolol 25 mg tablet 25 mg PO DAILY RF: 0 omeprazole 20 mg capsule,delayed release(DR/EC) 20 mg PO DAILY@1600 RF: 0 Discharge Orders: Discharge Order (Routine); Ordered 08/13/21 Ordered By: Brandie Interiano Diet: advance to usual diet Activity on Discharge: As tolerated Stand Alone Forms: Patient Portal Discharge page Care Plan Goals: Sepsis due to UTI continue antibiotics as prescribed Health Concerns: Dementia/chronic anemia/hypertension continue all home medications as before Plan of Treatment: Outpatient follow-up with primary care physician in 7-10 days Assessment: as above
[2021-08-13 11:37] VITALS: BP 180/81; TEMP 36.3
--- NOTE | 2021-08-13 14:27 | MHC.CM.PN ---
pt discharged back to [facility] at 11:30pm after CM spoke w/Venu at [facility], pt's dtr Afia Sellers from [facility] and Araceli the head pharmacist at [facility]. CM also received message from Araceli this afternoon and returned call at 2:20pm due to only receiving one packet of ABX, CM reached out to hospitalist who reported pt should receive one packet q3 days and receive 3 doses, CM has requested hospitalist send script for two more doses to [facility] so that pt will get second dose on time which is this Wednesday. CM will follow-up w/[facility] to be sure they receive script.
--- NOTE | 2021-08-15 08:15 | MHC.CM.PN ---
CM RECEIVED A CALL FROM KARLEE AT [phone] FROM [facility] REPORTING THE TWO ADDITIONAL DOSES OF ABX HAVE NOT BEEN DELIVERED. PER CM'S CONVERSATION /[facility] AT 4:27PM ON Wednesday08/13/21 THEY HAD RECEIVED CALL IN FROM HOSPITALIST FOR TWO ADDITIONAL DOSES AND MEDICATION SHOULD HAVE BEEN DELIVERED Wednesday08/14/21, CM WILL CONTACT [facility] AT 0900 WHEN THEY OPEN.
--- NOTE | 2021-08-15 09:32 | MHC.CM.PN ---
Addendum entered by Lisa Yanes RN 08/15/21 09:35: YANNI ATTEMPTED TO CONTACT KARLEE [facility] PHARMACIST AT 9:35AM [phone], NO ANSWER, MESSAGE LEFT W/UPDATE ON MED DELIVERY. Original Note: YANNI CONTACTED PHARMACIST PETR AT [facility] AT 9:25AM [phone], PETR REPORTED THAT HE HAD 2 BOXES(DOSES) OF PT'S MEDICATION IN STOCK AND WILL SEND THEM OUT FOR DELIVERY TODAY, PETR REPORTED EXTRA DOSES ADDED REFILLS AND THAT IS WHY THEY DID NOT GO OUT FOR DELIVERY YESTERDAY, PETR REPORTS NEDICATION WILL GO OUT FOR DELIVERY TODAY.
== END 2021-08-13 12:10 | disposition skilled nursing facility (03) | DRG 872 ==
LOC: HO.ED 08-07 06:26 → HO.EDOVER 08-07 06:32 → HO.S3 08-07 11:17
PROVIDERS: Nurse Practitioner Family; Admitting Provider Internal Medicine; Emergency Provider Emergency Medicine; PCP Internal Medicine Medical Oncology; Visit Provider Hospitalist
DX: A41.9 Sepsis, unspecified organism (principal); N39.0 Urinary tract infection, site not specified; N17.9 Acute kidney failure, unspecified; N40.0 Benign prostatic hyperplasia without lower urinary tract symptoms; F39 Unspecified mood [affective] disorder; E78.5 Hyperlipidemia, unspecified; I10 Essential (primary) hypertension; Z86.73 Personal history of transient ischemic attack (TIA), and cerebral infarction without residual deficits; B96.5 Pseudomonas (aeruginosa) (mallei) (pseudomallei) as the cause of diseases classified elsewhere; B95.2 Enterococcus as the cause of diseases classified elsewhere; Z20.822 Contact with and (suspected) exposure to COVID-19; R22.0 Localized swelling, mass and lump, head; G30.9 Alzheimer's disease, unspecified; F02.80 Dementia in other diseases classified elsewhere, unspecified severity, without behavioral disturbance, psychotic disturbance, mood disturbance, and anxiety; D64.9 Anemia, unspecified; Z88.5 Allergy status to narcotic agent; Z79.82 Long term (current) use of aspirin; Z79.899 Other long term (current) drug therapy
CPT/HCPCS: 0241U; 36415; 71045; 80048; 80076; 81001; 83605; 83735; 84484; 85025; 85027; 87040; 87086; 87088; 87186; 87635; 93005; 99285; J0290; J0692; J0696; J2185; J2543

== ENCOUNTER 2021-08-23 | Outpatient (REF) | payer MEDICARE, SELFPAY ==
[2021-08-25 13:22] LABS: CDiff Gene PCR NEGATIVE (Negative)
== END 2021-08-23 00:01 | disposition home or self-care (01) ==
LOC: HO.HSH2E
PROVIDERS: Visit Provider Internal Medicine Medical Oncology
DX: R19.7 Diarrhea, unspecified (principal)
CPT/HCPCS: 36415; 87493

== ENCOUNTER 2021-09-01 00:43 | Inpatient (IN) | payer MEDICARE, SELFPAY ==
[2021-09-01] VITALS (10 sets, daily range): BP systolic 114–157; BP diastolic 42–73; PULSE 58–88; RESP 16–32; TEMP 36.6–39.1; O2SAT 89–100; BMI 23.1
--- NOTE | ~2021-09-01 | XR_ITS ---
EXAMINATION: XR CHEST CLINICAL INFORMATION: Recurrent aspiration pneumonia COMPARISON: 08/07/2021 TECHNIQUE: Frontal view of the chest was obtained. XR/XR chest 1V FINDINGS/IMPRESSION: There is bronchial wall thickening within the mid and lower lungs bilaterally with streaky opacities in the lower lobes suspicious for bronchitis and/or aspiration pneumonitis. No pleural effusion or pneumothorax. Normal heart size and pulmonary vascularity. Aorta is atherosclerotic.
--- NOTE | 2021-09-01 00:58 | ED_ITS ---
HPI - SOB/Dyspnea General Chief Complaint: General Medical <Kristi Acuña NP - Last Filed: 09/01/21 01:50> Stated Complaint: SOB FROM SNF <Kristi Acuña NP - Last Filed: 09/01/21 01:50> Time Seen by Provider: 09/01/21 00:53 <Kristi Acuña NP - Last Filed: 09/01/21 01:50> Source: patient, EMS and RN notes reviewed <Kristi Acuña NP - Last Filed: 09/01/21 01:50> Mode of arrival: EMS <Kristi Acuña NP - Last Filed: 09/01/21 01:50> Limitations: physical limitation <Kristi Acuña NP - Last Filed: 09/01/21 01:50> History of Present Illness HPI Narrative: 85-year-old nonverbal, contractured,, hypertension, BPH, alcoholic polyneuropathy, depression, and anemia presents from a nursing home facility via EMS for fever and shortness of breath. Patient is unable to make his needs known. <Kristi Acuña NP - Last Filed: 09/01/21 01:50> MD elicited complaint: shortness of breath <Kristi Acuña NP - Last Filed: 09/01/21 01:50> Pertinent past history: pneumonia and aspiration <Kristi Acuña NP - Last Filed: 09/01/21 01:50> Known history of: aspiration pneumonia <Kristi Acuña NP - Last Filed: 09/01/21 01:50> Related Data Home Medications: Home Medications Medication Instructions Recorded Confirmed amlodipine 5 mg tablet 5 mg PO BEDTIME 04/30/21 08/07/21 sertraline 50 mg tablet 50 mg DAILY 04/30/21 08/07/21 acetaminophen 325 mg tablet 650 mg PO TID PRN 05/31/21 08/07/21 aspirin 81 mg chewable tablet 81 mg PO DAILY 05/31/21 08/07/21 atorvastatin 10 mg tablet 10 mg PO BEDTIME 05/31/21 08/07/21 docusate sodium 100 mg capsule 100 mg PO DAILY 05/31/21 08/07/21 (Colace) fentanyl 50 mcg/hr transdermal 1 patch TRANSDERMAL Q72H 05/31/21 08/07/21 patch melatonin 3 mg capsule 3 mg PO BEDTIME 05/31/21 08/07/21 mirtazapine 15 mg tablet (Remeron) 7.5 mg PO BEDTIME 05/31/21 08/07/21 atenolol 25 mg tablet 25 mg PO DAILY 08/07/21 08/07/21 chlorhexidine gluconate 0.12 % 15 ml BUCCAL BID 08/07/21 08/07/21 mouthwash (Periogard) omeprazole 20 mg capsule,delayed 20 mg PO DAILY@1600 08/07/21 08/07/21 release polyethylene glycol 3350 17 17 g PO DAILY@0800 08/07/21 08/07/21 gram/dose oral powder (Miralax) Previous Rx's Medication Instructions Recorded oxycodone 5 mg tablet 5 mg PO Q6H PRN #30 tab 11/28/20 tamsulosin 0.4 mg capsule 0.4 mg PO DAILY@2000 #30 cap 11/28/20 fosfomycin tromethamine 3 gram 1 packet PO Q3D #1 ea 08/12/21 oral packet <Kristi Acuña NP - Last Filed: 09/01/21 01:50> Allergies/Adverse Reactions: Allergies Allergy/AdvReac Type Severity Reaction Status Date / Time morphine [MORPHINE] Allergy Mild UNKNOWN Verified 05/31/21 21:53 erythromycin base Allergy Unknown UNKNOWN Verified 05/31/21 21:53 [ERYTHROMYCIN BASE] valsartan [VALSARTAN] Allergy Unknown UNKNOWN Verified 05/31/21 21:53 <Kristi Acuña NP - Last Filed: 09/01/21 01:50> Review of Systems Review of Systems: Yes Unobtainable due to mental condition <Kristi Acuña NP - Last Filed: 09/01/21 01:50> PMFSH Past Medical History Attestation statement: The following information was validated with the patient. <Kristi Acuña NP - Last Filed: 09/01/21 01:50> Source: old records reviewed <Kristi Acuña NP - Last Filed: 09/01/21 01:50> Medical History: Medical History BPH (benign prostatic hyperplasia) Chronic anemia CVA (cerebral vascular accident) Dementia Dementia HLD (hyperlipidemia) HTN (hypertension) Neuropathy Normocytic anemia <Kristi Acuña NP - Last Filed: 09/01/21 01:50> Social History Social History: Social History Household Members: Other Household Members Other:: nursingn home Housing: Correction Do you presently have visiting nurse or other home services: No Unable to assess alcohol history related to: Unknown Alcohol intake: unknown Patient Tobacco Use Status: Never used Tobacco Advance Directives: No Advance Directives Information Provided: No service: Yes Current occupational status: disabled <Kristi Acuña NP - Last Filed: 09/01/21 01:50> Physical Exam Vital Signs: Vital Signs: Last Vital Signs Temp 99.8 F 09/01/21 02:43 Pulse 67 09/01/21 02:43 Resp 24 H 09/01/21 02:43 BP 138/49 L 09/01/21 02:43 Pulse Ox 100 09/01/21 02:43 Body Mass Index 23.1 <Kristi Acuña NP - Last Filed: 09/01/21 01:50> Vital Signs: Last Vital Signs Temp 99.8 F 09/01/21 02:43 Pulse 67 09/01/21 02:43 Resp 24 H 09/01/21 02:43 BP 138/49 L 09/01/21 02:43 Pulse Ox 100 09/01/21 02:43 Body Mass Index 23.1 <Maile Stephens MD - Last Filed: 09/01/21 03:14> Appearance: Alert. Confused. Eyes: Pupils equal, round and reactive to light. Sclera nonicteric. ENT: Pharynx normal. Tongue midline. Neck: Normal inspection. Neck supple. CVS: Normal heart rate and rhythm. Pulses normal. Respiratory: No respiratory distress. Coarse lung sounds. Abdomen: Soft and nontender. Skin: Skin warm and dry. Normal skin color. Normal skin turgor. Extremities: Extremities contracture per baseline. Neuro: No motor deficit. No sensory deficit. <Kristi Acuña NP - Last Filed: 09/01/21 01:50> Course Course Course Narrative: 85-year-old male presents from nursing home facility with fever, and shortness of breath. Patient is unable to make needs known. 1:09 a.m. a review of records indicates that last visit on 08/07/2021 patient was positive for Pseudomonas aeruginosa and Enterococcus faecalis. Based on patient's history of recurrent aspiration pneumonia and possible catheter associ ated UTI will treat with Zosyn IV to cover for both aspiration pneumonia and CAUTI. 1:50 a.m. sign-out to Dr. Stephens. <Kristi Acuña NP - Last Filed: 09/01/21 01:50> Reevaluation(s) Reevaluation #1: I received sign-out on this gentleman with suspicion for aspiration pneumonia which he has a history of and on review of all investigations although there is no leukocytosis there is a left shift with corresponding chest x-ray findings that demonstrate likely aspiration pneumonitis especially in the context of patient being febrile and tachypneic with elevated BNP and corres ponding KRISTINA. I discussed this case with the inpatient hospitalist who accepts admission and recommends proceeding with 750 mg of vancomycin. <Maile Stephens MD - Last Filed: 09/01/21 03:14> Time: 02:58 <Maile Stephens MD - Last Filed: 09/01/21 03:14> MDM - SOB/Dyspnea MDM Narrative Medical decision making narrative: Urosepsis, sepsis, UTI <Kristi Acuña NP - Last Filed: 09/01/21 01:50> Differential Diagnosis Differential diagnosis: Likely acute exacerbation of chronic obstructive airways disease and pneumonia <Kristi Acuña NP - Last Filed: 09/01/21 01:50> Medical Records Attestation: I reviewed the patient's medical records. <Kristi Acuña NP - Last Filed: 09/01/21 01:50> Lab Data Attestation: I reviewed the patient's lab results. <Kristi Acuña NP - Last Filed: 09/01/21 01:50> Result diagrams: : 09/01/21 01:15 09/01/21 01:15 <Kristi Acuña NP - Last Filed: 09/01/21 01:50> Labs: Lab Results 09/01/21 09/01/21 09/01/21 Range/Units 01:15 01:15 01:15 WBC 10.3 (4.8-10.8) X10*3/uL RBC 2.89 L (4.60-5.80) X10*6/uL Hgb 8.7 L (14.0-18.0) g/dl Hct 26.7 L (42-52) % MCV 92.4 (80-98) fL MCH 30.1 (27.0-33.0) pg MCHC 32.6 (31.0-36.0) g/dl RDW 14.0 (11.0-16.0) % Plt Count 189 (160-400) X10*3/uL MPV 10.1 (9.4-12.4) fL Immature Gran % (Auto) 0.2 (0.0-0.4) % Neut % (Auto) 84.1 H (45-73) % Lymph % (Auto) 6.1 L (20-40) % [place] % (Auto) 9.0 (2-11) % Eos % (Auto) 0.4 (0-4) % Baso % (Auto) 0.2 (0-2) % Lymph # (Auto) 0.6 L (1.2-4.9) X10*3/uL [place] # (Auto) 0.9 (0.1-1.2) X10*3/uL Eos # (Auto) 0.0 (0.0-0.4) X10*3/uL Baso # (Auto) 0.0 (0.0-0.2) X10*3/uL Abs Immat Gran (auto) 0.02 (0.00-0.03) X10*3/uL Absolute Neuts (auto) 8.7 H (2.0-8.3) X10*3/uL Absolute Nucleated RBC 0.000 (0.0-0.012) X10*3/uL Nucleated RBC % (auto) 0.0 (0.0-0.2) /100WBC PT 13.0 (9.9-13.0) SEC INR 1.1 (0.9-1.1) APTT 33.8 (24.1-38.0) SEC VBG pH (7.32-7.43) VBG pCO2 mmHg VBG pO2 mmHg VBG HCO3 (22-26) mmol/L VBG O2 Saturation % VBG Base Excess mmol/L Sodium 142 (135-145) mmol/L Potassium 4.6 D (3.3-5.1) mmol/L Chloride 111 H (96-108) mmol/L Carbon Dioxide 22 (22-29) mmol/L Anion Gap 14 (12-20) BUN 52 H D (9-16) mg/dL Creatinine 1.61 H (0.5-1.4) mg/dL Estim Creat Clear Calc 35.8 Estimated GFR 41 Random Glucose 165 H D (60-115) mg/dL Lactic Acid (0.5-2.0) mmol/L Calcium 9.3 (8.4-10.2) mg/dL Total Bilirubin 0.4 (0.0-1.0) mg/dL Direct Bilirubin 0.2 (0.0-0.5) mg/dL AST 11 (5-37) U/L ALT 6 (0-40) U/L Alkaline Phosphatase 68 D (39-117) U/L Troponin I High Sens (<3.5-35.0) ng/L B-Natriuretic Peptide (<100) pg/mL Total Protein 7.3 (6.5-8.0) g/dL Albumin 3.6 (3.5-5.0) g/dL Lipase 30 (8-78) U/L Urine Color Urine Appearance Urine pH (5.0-8.0) Ur Specific [place] (1.005-1.025) Urine Protein (NEG-TRACE) MG/DL Urine Glucose (UA) (NEG) MG/DL Urine Ketones (NEG) MG/DL Urine Blood (NEG) Urine Nitrite (NEG) Ur Leukocyte Esterase (NEG) Urine RBC (0) /HPF Urine WBC (0-4) /HPF Ur Squamous Epith Cells /LPF Urine Bacteria /LPF Hyaline Casts /LPF Granular Casts /LPF Urine Mucus /LPF Coronavirus (PCR) (Negative) Influenza Type A (PCR) (Negative) Influenza Type B (PCR) (Negative) RSV RNA Qual (PCR) (Negative) 09/01/21 09/01/21 09/01/21 Range/Units 01:15 01:15 01:15 WBC (4.8-10.8) X10*3/uL RBC (4.60-5.80) X10*6/uL Hgb (14.0-18.0) g/dl Hct (42-52) % MCV (80-98) fL MCH (27.0-33.0) pg MCHC (31.0-36.0) g/dl RDW (11.0-16.0) % Plt Count (160-400) X10*3/uL MPV (9.4-12.4) fL Immature Gran % (Auto) (0.0-0.4) % Neut % (Auto) (45-73) % Lymph % (Auto) (20-40) % [place] % (Auto) (2-11) % Eos % (Auto) (0-4) % Baso % (Auto) (0-2) % Lymph # (Auto) (1.2-4.9) X10*3/uL [place] # (Auto) (0.1-1.2) X10*3/uL Eos # (Auto) (0.0-0.4) X10*3/uL Baso # (Auto) (0.0-0.2) X10*3/uL Abs Immat Gran (auto) (0.00-0.03) X10*3/uL Absolute Neuts (auto) (2.0-8.3) X10*3/uL Absolute Nucleated RBC (0.0-0.012) X10*3/uL Nucleated RBC % (auto) (0.0-0.2) /100WBC PT (9.9-13.0) SEC INR (0.9-1.1) APTT (24.1-38.0) SEC VBG pH (7.32-7.43) VBG pCO2 mmHg VBG pO2 mmHg VBG HCO3 (22-26) mmol/L VBG O2 Saturation % VBG Base Excess mmol/L Sodium (135-145) mmol/L Potassium (3.3-5.1) mmol/L Chloride (96-108) mmol/L Carbon Dioxide (22-29) mmol/L Anion Gap (12-20) BUN (9-16) mg/dL Creatinine (0.5-1.4) mg/dL Estim Creat Clear Calc Estimated GFR Random Glucose (60-115) mg/dL Lactic Acid 1.6 (0.5-2.0) mmol/L Calcium (8.4-10.2) mg/dL Total Bilirubin (0.0-1.0) mg/dL Direct Bilirubin (0.0-0.5) mg/dL AST (5-37) U/L ALT (0-40) U/L Alkaline Phosphatase (39-117) U/L Troponin I High Sens 7.8 (<3.5-35.0) ng/L B-Natriuretic Peptide 263 H (<100) pg/mL Total Protein (6.5-8.0) g/dL Albumin (3.5-5.0) g/dL Lipase (8-78) U/L Urine Color Urine Appearance Urine pH (5.0-8.0) Ur Specific [place] (1.005-1.025) Urine Protein (NEG-TRACE) MG/DL Urine Glucose (UA) (NEG) MG/DL Urine Ketones (NEG) MG/DL Urine Blood (NEG) Urine Nitrite (NEG) Ur Leukocyte Esterase (NEG) Urine RBC (0) /HPF Urine WBC (0-4) /HPF Ur Squamous Epith Cells /LPF Urine Bacteria /LPF Hyaline Casts /LPF Granular Casts /LPF Urine Mucus /LPF Coronavirus (PCR) NEGATIVE (Negative) Influenza Type A (PCR) NEGATIVE (Negative) Influenza Type B (PCR) NEGATIVE (Negative) RSV RNA Qual (PCR) NEGATIVE (Negative) 09/01/21 09/01/21 Range/Units 01:15 01:24 WBC (4.8-10.8) X10*3/uL RBC (4.60-5.80) X10*6/uL Hgb (14.0-18.0) g/dl Hct (42-52) % MCV (80-98) fL MCH (27.0-33.0) pg MCHC (31.0-36.0) g/dl RDW (11.0-16.0) % Plt Count (160-400) X10*3/uL MPV (9.4-12.4) fL Immature Gran % (Auto) (0.0-0.4) % Neut % (Auto) (45-73) % Lymph % (Auto) (20-40) % [place] % (Auto) (2-11) % Eos % (Auto) (0-4) % Baso % (Auto) (0-2) % Lymph # (Auto) (1.2-4.9) X10*3/uL [place] # (Auto) (0.1-1.2) X10*3/uL Eos # (Auto) (0.0-0.4) X10*3/uL Baso # (Auto) (0.0-0.2) X10*3/uL Abs Immat Gran (auto) (0.00-0.03) X10*3/uL Absolute Neuts (auto) (2.0-8.3) X10*3/uL Absolute Nucleated RBC (0.0-0.012) X10*3/uL Nucleated RBC % (auto) (0.0-0.2) /100WBC PT (9.9-13.0) SEC INR (0.9-1.1) APTT (24.1-38.0) SEC VBG pH 7.38 (7.32-7.43) VBG pCO2 37 mmHg VBG pO2 101 mmHg VBG HCO3 23 (22-26) mmol/L VBG O2 Saturation 98.0 % VBG Base Excess -1.6 mmol/L Sodium (135-145) mmol/L Potassium (3.3-5.1) mmol/L Chloride (96-108) mmol/L Carbon Dioxide (22-29) mmol/L Anion Gap (12-20) BUN (9-16) mg/dL Creatinine (0.5-1.4) mg/dL Estim Creat Clear Calc Estimated GFR Random Glucose (60-115) mg/dL Lactic Acid (0.5-2.0) mmol/L Calcium (8.4-10.2) mg/dL Total Bilirubin (0.0-1.0) mg/dL Direct Bilirubin (0.0-0.5) mg/dL AST (5-37) U/L ALT (0-40) U/L Alkaline Phosphatase (39-117) U/L Troponin I High Sens (<3.5-35.0) ng/L B-Natriuretic Peptide (<100) pg/mL Total Protein (6.5-8.0) g/dL Albumin (3.5-5.0) g/dL Lipase (8-78) U/L Urine Color YELLOW Urine Appearance CLEAR Urine pH 6.0 (5.0-8.0) Ur Specific [place] 1.025 (1.005-1.025) Urine Protein 2+ H (NEG-TRACE) MG/DL Urine Glucose (UA) NEG (NEG) MG/DL Urine Ketones NEG (NEG) MG/DL Urine Blood 1+ H (NEG) Urine Nitrite NEG (NEG) Ur Leukocyte Esterase NEG (NEG) Urine RBC 1-4 (0) /HPF Urine WBC 1-4 (0-4) /HPF Ur Squamous Epith Cells 1+ /LPF Urine Bacteria 2+ /LPF Hyaline Casts 1-4 /LPF Granular Casts 1-4 /LPF Urine Mucus 2+ /LPF Coronavirus (PCR) (Negative) Influenza Type A (PCR) (Negative) Influenza Type B (PCR) (Negative) RSV RNA Qual (PCR) (Negative) <Kristi Acuña [employer] - Last Filed: 09/01/21 01:50> Lab Results 09/01/21 09/01/21 09/01/21 Range/Units 01:15 01:15 01:15 WBC 10.3 (4.8-10.8) X10*3/uL RBC 2.89 L (4.60-5.80) X10*6/uL Hgb 8.7 L (14.0-18.0) g/dl Hct 26.7 L (42-52) % MCV 92.4 (80-98) fL MCH 30.1 (27.0-33.0) pg MCHC 32.6 (31.0-36.0) g/dl RDW 14.0 (11.0-16.0) % Plt Count 189 (160-400) X10*3/uL MPV 10.1 (9.4-12.4) fL Immature Gran % (Auto) 0.2 (0.0-0.4) % Neut % (Auto) 84.1 H (45-73) % Lymph % (Auto) 6.1 L (20-40) % [place] % (Auto) 9.0 (2-11) % Eos % (Auto) 0.4 (0-4) % Baso % (Auto) 0.2 (0-2) % Lymph # (Auto) 0.6 L (1.2-4.9) X10*3/uL [place] # (Auto) 0.9 (0.1-1.2) X10*3/uL Eos # (Auto) 0.0 (0.0-0.4) X10*3/uL Baso # (Auto) 0.0 (0.0-0.2) X10*3/uL Abs Immat Gran (auto) 0.02 (0.00-0.03) X10*3/uL Absolute Neuts (auto) 8.7 H (2.0-8.3) X10*3/uL Absolute Nucleated RBC 0.000 (0.0-0.012) X10*3/uL Nucleated RBC % (auto) 0.0 (0.0-0.2) /100WBC PT 13.0 (9.9-13.0) SEC INR 1.1 (0.9-1.1) APTT 33.8 (24.1-38.0) SEC VBG pH (7.32-7.43) VBG pCO2 mmHg VBG pO2 mmHg VBG HCO3 (22-26) mmol/L VBG O2 Saturation % VBG Base Excess mmol/L Sodium 142 (135-145) mmol/L Potassium 4.6 D (3.3-5.1) mmol/L Chloride 111 H (96-108) mmol/L Carbon Dioxide 22 (22-29) mmol/L Anion Gap 14 (12-20) BUN 52 H D (9-16) mg/dL Creatinine 1.61 H (0.5-1.4) mg/dL Estim Creat Clear Calc 35.8 Estimated GFR 41 Random Glucose 165 H D (60-115) mg/dL Lactic Acid (0.5-2.0) mmol/L Calcium 9.3 (8.4-10.2) mg/dL Total Bilirubin 0.4 (0.0-1.0) mg/dL Direct Bilirubin 0.2 (0.0-0.5) mg/dL AST 11 (5-37) U/L ALT 6 (0-40) U/L Alkaline Phosphatase 68 D (39-117) U/L Troponin I High Sens (<3.5-35.0) ng/L B-Natriuretic Peptide (<100) pg/mL Total Protein 7.3 (6.5-8.0) g/dL Albumin 3.6 (3.5-5.0) g/dL Lipase 30 (8-78) U/L Urine Color Urine Appearance Urine pH (5.0-8.0) Ur Specific [place] (1.005-1.025) Urine Protein (NEG-TRACE) MG/DL Urine Glucose (UA) (NEG) MG/DL Urine Ketones (NEG) MG/DL Urine Blood (NEG) Urine Nitrite (NEG) Ur Leukocyte Esterase (NEG) Urine RBC (0) /HPF Urine WBC (0-4) /HPF Ur Squamous Epith Cells /LPF Urine Bacteria /LPF Hyaline Casts /LPF Granular Casts /LPF Urine Mucus /LPF Coronavirus (PCR) (Negative) Influenza Type A (PCR) (Negative) Influenza Type B (PCR) (Negative) RSV RNA Qual (PCR) (Negative) 09/01/21 09/01/21 09/01/21 Range/Units 01:15 01:15 01:15 WBC (4.8-10.8) X10*3/uL RBC (4.60-5.80) X10*6/uL Hgb (14.0-18.0) g/dl Hct (42-52) % MCV (80-98) fL MCH (27.0-33.0) pg MCHC (31.0-36.0) g/dl RDW (11.0-16.0) % Plt Count (160-400) X10*3/uL MPV (9.4-12.4) fL Immature Gran % (Auto) (0.0-0.4) % Neut % (Auto) (45-73) % Lymph % (Auto) (20-40) % [place] % (Auto) (2-11) % Eos % (Auto) (0-4) % Baso % (Auto) (0-2) % Lymph # (Auto) (1.2-4.9) X10*3/uL [place] # (Auto) (0.1-1.2) X10*3/uL Eos # (Auto) (0.0-0.4) X10*3/uL Baso # (Auto) (0.0-0.2) X10*3/uL Abs Immat Gran (auto) (0.00-0.03) X10*3/uL Absolute Neuts (auto) (2.0-8.3) X10*3/uL Absolute Nucleated RBC (0.0-0.012) X10*3/uL Nucleated RBC % (auto) (0.0-0.2) /100WBC PT (9.9-13.0) SEC INR (0.9-1.1) APTT (24.1-38.0) SEC VBG pH (7.32-7.43) VBG pCO2 mmHg VBG pO2 mmHg VBG HCO3 (22-26) mmol/L VBG O2 Saturation % VBG Base Excess mmol/L Sodium (135-145) mmol/L Potassium (3.3-5.1) mmol/L Chloride (96-108) mmol/L Carbon Dioxide (22-29) mmol/L Anion Gap (12-20) BUN (9-16) mg/dL Creatinine (0.5-1.4) mg/dL Estim Creat Clear Calc Estimated GFR Random Glucose (60-115) mg/dL Lactic Acid 1.6 (0.5-2.0) mmol/L Calcium (8.4-10.2) mg/dL Total Bilirubin (0.0-1.0) mg/dL Direct Bilirubin (0.0-0.5) mg/dL AST (5-37) U/L ALT (0-40) U/L Alkaline Phosphatase (39-117) U/L Troponin I High Sens 7.8 (<3.5-35.0) ng/L B-Natriuretic Peptide 263 H (<100) pg/mL Total Protein (6.5-8.0) g/dL Albumin (3.5-5.0) g/dL Lipase (8-78) U/L Urine Color Urine Appearance Urine pH (5.0-8.0) Ur Specific [place] (1.005-1.025) Urine Protein (NEG-TRACE) MG/DL Urine Glucose (UA) (NEG) MG/DL Urine Ketones (NEG) MG/DL Urine Blood (NEG) Urine Nitrite (NEG) Ur Leukocyte Esterase (NEG) Urine RBC (0) /HPF Urine WBC (0-4) /HPF Ur Squamous Epith Cells /LPF Urine Bacteria /LPF Hyaline Casts /LPF Granular Casts /LPF Urine Mucus /LPF Coronavirus (PCR) NEGATIVE (Negative) Influenza Type A (PCR) NEGATIVE (Negative) Influenza Type B (PCR) NEGATIVE (Negative) RSV RNA Qual (PCR) NEGATIVE (Negative) 09/01/21 09/01/21 Range/Units 01:15 01:24 WBC (4.8-10.8) X10*3/uL RBC (4.60-5.80) X10*6/uL Hgb (14.0-18.0) g/dl Hct (42-52) % MCV (80-98) fL MCH (27.0-33.0) pg MCHC (31.0-36.0) g/dl RDW (11.0-16.0) % Plt Count (160-400) X10*3/uL MPV (9.4-12.4) fL Immature Gran % (Auto) (0.0-0.4) % Neut % (Auto) (45-73) % Lymph % (Auto) (20-40) % [place] % (Auto) (2-11) % Eos % (Auto) (0-4) % Baso % (Auto) (0-2) % Lymph # (Auto) (1.2-4.9) X10*3/uL [place] # (Auto) (0.1-1.2) X10*3/uL Eos # (Auto) (0.0-0.4) X10*3/uL Baso # (Auto) (0.0-0.2) X10*3/uL Abs Immat Gran (auto) (0.00-0.03) X10*3/uL Absolute Neuts (auto) (2.0-8.3) X10*3/uL Absolute Nucleated RBC (0.0-0.012) X10*3/uL Nucleated RBC % (auto) (0.0-0.2) /100WBC PT (9.9-13.0) SEC INR (0.9-1.1) APTT (24.1-38.0) SEC VBG pH 7.38 (7.32-7.43) VBG pCO2 37 mmHg VBG pO2 101 mmHg VBG HCO3 23 (22-26) mmol/L VBG O2 Saturation 98.0 % VBG Base Excess -1.6 mmol/L Sodium (135-145) mmol/L Potassium (3.3-5.1) mmol/L Chloride (96-108) mmol/L Carbon Dioxide (22-29) mmol/L Anion Gap (12-20) BUN (9-16) mg/dL Creatinine (0.5-1.4) mg/dL Estim Creat Clear Calc Estimated GFR Random Glucose (60-115) mg/dL Lactic Acid (0.5-2.0) mmol/L Calcium (8.4-10.2) mg/dL Total Bilirubin (0.0-1.0) mg/dL Direct Bilirubin (0.0-0.5) mg/dL AST (5-37) U/L ALT (0-40) U/L Alkaline Phosphatase (39-117) U/L Troponin I High Sens (<3.5-35.0) ng/L B-Natriuretic Peptide (<100) pg/mL Total Protein (6.5-8.0) g/dL Albumin (3.5-5.0) g/dL Lipase (8-78) U/L Urine Color YELLOW Urine Appearance CLEAR Urine pH 6.0 (5.0-8.0) Ur Specific [place] 1.025 (1.005-1.025) Urine Protein 2+ H (NEG-TRACE) MG/DL Urine Glucose (UA) NEG (NEG) MG/DL Urine Ketones NEG (NEG) MG/DL Urine Blood 1+ H (NEG) Urine Nitrite NEG (NEG) Ur Leukocyte Esterase NEG (NEG) Urine RBC 1-4 (0) /HPF Urine WBC 1-4 (0-4) /HPF Ur Squamous Epith Cells 1+ /LPF Urine Bacteria 2+ /LPF Hyaline Casts 1-4 /LPF Granular Casts 1-4 /LPF Urine Mucus 2+ /LPF Coronavirus (PCR) (Negative) Influenza Type A (PCR) (Negative) Influenza Type B (PCR) (Negative) RSV RNA Qual (PCR) (Negative) <Maile Stephens MD - Last Filed: 09/01/21 03:14> Imaging Data Chest x-ray: Attestation: I personally reviewed and interpreted this imaging study as follows: <Kristi Acuña NP - Last Filed: 09/01/21 01:50> ECG Data Attestation: I personally reviewed and interpreted this ECG as follows: <Kristi Acuña NP - Last Filed: 09/01/21 01:50> ECG interpretation date: 09/01/21 <Kristi Acuña NP - Last Filed: 09/01/21 01:50> ECG interpretation time: 01:15 <Kristi Acuña NP - Last Filed: 09/01/21 01:50> Prior ECG tracings: not available for review <Kristi Acuña NP - Last Filed: 09/01/21 01:50> Interpretation: Ventricular rate 75 beats per minute, TX 208, QRS 74, QT 352, QTC 393 normal sinus rhythm, normal EKG. Prior EKGs unavailable secondary to system 130 error <Kristi Acuña NP - Last Filed: 09/01/21 01:50> Discharge Plan Discharge Clinical Impression: Pneumonia, KRISTINA (acute kidney injury) <Kristi Acuña NP - Last Filed: 09/01/21 01:50> Patient Disposition: Admitted As Inpatient <Kristi Acuña NP - Last Filed: 09/01/21 01:50> Prescriptions: No Action tamsulosin 0.4 mg Capsule 0.4 mg PO DAILY@1999 Qty: 30 RF: 0 oxycodone 5 mg Tablet 5 mg PO Q6H PRN (Reason: Pain, Severe (Pain Scale 7-10)) Qty: 30 RF: 0 amlodipine 5 mg Tablet 5 mg PO BEDTIME RF: 0 sertraline 50 mg Tablet 50 mg DAILY RF: 0 fentanyl 50 mcg/hr Patch 72 Hour 1 patch TRANSDERMAL Q72H RF: 0 docusate sodium [Colace] 100 mg Capsule 100 mg PO DAILY RF: 0 mirtazapine [Remeron] 15 mg Tablet 7.5 mg PO BEDTIME RF: 0 melatonin 3 mg Capsule 3 mg PO BEDTIME RF: 0 acetaminophen 325 mg tablet 650 mg PO TID PRN (Reason: Pain, Mild (Pain Scale 1-3)) RF: 0 atorvastatin 10 mg tablet 10 mg PO BEDTIME RF: 0 aspirin 81 mg tablet,chewable 81 mg PO DAILY RF: 0 polyethylene glycol 3350 [Miralax] 17 gram/dose Powder 17 g PO DAILY@0800 RF: 0 chlorhexidine gluconate [Periogard] 0.12 % Mouthwash 15 ml BUCCAL BID RF: 0 atenolol 25 mg tablet 25 mg PO DAILY RF: 0 omeprazole 20 mg capsule,delayed release(DR/EC) 20 mg PO DAILY@1600 RF: 0 fosfomycin tromethamine 3 gram packet 1 packet PO Q3D Qty: 1 RF: 0 <Kristi Acuña NP - Last Filed: 09/01/21 01:50>
--- NOTE | 2021-09-01 01:04 | ECG_ITS ---
Test Reason : SOB Blood Pressure : / mmHG Vent. Rate : 075 BPM Atrial Rate : 075 BPM P-R Int : 208 ms QRS Dur : 074 ms QT Int : 352 ms P-R-T Axes : 101 027 075 degrees QTc Int : 393 ms Normal sinus rhythm Normal ECG No significant changes seen Referred By: Kristi Acuña Electronically Signed By:SARAHY MA MD
[2021-09-01] MEDS: 0.9 % Sodium Chloride 1,000 ML 999 ML IVCONT ×2 (01:20)
[2021-09-01 01:25] LABS: MANUAL DIFF FLAG NO
[2021-09-01 01:26] LABS: Basophils Percent Auto 0.2 % (0-2); Eosinophils Percent Auto 0.4 % (0-4); Hematocrit 26.7 % (42-52); Hemoglobin 8.7 g/dl (14.0-18.0); Imm Gran Abs Auto 0.02 X10*3/uL (0.00-0.03); Imm Gran Pct Auto 0.2 % (0.0-0.4); Lymphocytes Absolute Auto 0.6 X10*3/uL (1.2-4.9); Lymphocytes Percent Auto 6.1 % (20-40); Mean Corpuscular HGB Conc 32.6 g/dl (31.0-36.0); Mean Corpuscular Hemoglobin 30.1 pg (27.0-33.0); Mean Corpuscular Volume 92.4 fL (80-98); Mean Platelet Volume 10.1 fL (9.4-12.4); Monocytes Absolute Auto 0.9 X10*3/uL (0.1-1.2); Neutrophils Absolute Auto 8.7 X10*3/uL (2.0-8.3); Neutrophils Percent Auto 84.1 % (45-73); Platelet Count 189 X10*3/uL (160-400); Red Blood Count 2.89 X10*6/uL (4.60-5.80); White Blood Count 10.3 X10*3/uL (4.8-10.8)
[2021-09-01 01:29] LABS: Venous Blood Gas Refer to POC result
[2021-09-01 01:29] LABS: VBG Base Excess -1.6 mmol/L; VBG HCO3 23 mmol/L (22-26); VBG pCO2 37 mmHg; VBG pH 7.38 (7.32-7.43); VBG pO2 101 mmHg
[2021-09-01 01:32] LABS: INTERNATIONAL NORM RATIO 1.1 (0.9-1.1)
[2021-09-01] MEDS: Piperacillin Sodium/Tazobactam 3.375 GM in 0.9 % Sodium Chloride 50 ML IV (01:32)
[2021-09-01 01:34] LABS: Appearance Urine CLEAR; Color Urine YELLOW; Glucose Urine UA NEG (NEG); Leukocyte Esterase Urine NEG (NEG); Nitrite Urine NEG (NEG); Specific Gravity - Urine 1.025 (1.005-1.025); UACC Culture Trigger NO; Urine Blood 1+ (NEG); Urine Ketones NEG (NEG); Urine Protein 2+ MG/DL (NEG-TRACE)
[2021-09-01] MEDS: Acetaminophen Supp 650 MG SUPP.RECT PR ×2 (01:34→13:29)
[2021-09-01 01:35] LABS: Partial Thromboplastin Time 33.8 SEC (24.1-38.0)
[2021-09-01 01:38] LABS: Lactic Acid 1.6 mmol/L (0.5-2.0)
[2021-09-01 01:46] LABS: Troponin-I High Sensitivity 7.8 ng/L (<3.5-35.0)
[2021-09-01 01:47] LABS: Alanine Aminotransferase 6 U/L (0-40); Albumin Level 3.6 g/dL (3.5-5.0); Alkaline Phosphatase 68 U/L (39-117); Anion Gap 14 (12-20); Aspartate Amino Transferase 11 U/L (5-37); Bacteria Urine 2+ /LPF; Bilirubin Direct 0.2 mg/dL (0.0-0.5); Bilirubin Total 0.4 mg/dL (0.0-1.0); Blood Urea Nitrogen 52 mg/dL (9-16); Calcium 9.3 mg/dL (8.4-10.2); Carbon Dioxide 22 mmol/L (22-29); Chloride 111 mmol/L (96-108); Creatinine Clr Calc Pharmacy 35.8; Estimated Glomerular Filt Rate 41; Glucose Random 165 mg/dL (60-115); Lipase 30 U/L (8-78); Mucus Urine 2+ /LPF; Potassium 4.6 mmol/L (3.3-5.1); Sodium 142 mmol/L (135-145); Squamous Epithelial Cell Urine 1+ /LPF; Total Protein 7.3 g/dL (6.5-8.0)
--- NOTE | 2021-09-01 01:51 | PC.NURSE ---
PT labs, cultures, urine, and COVID swab collected. IV established. IV fluids infusing with antibiotics. Vance inserted. PT tolerated procedure well. Rectal Tylenol administered. Awaiting lab results and chest xray. VSS. PT positioned upright in bed due to hx of aspiration pneumonia.
[2021-09-01 02:05] LABS: B Type Natriuretic Peptide 263 pg/mL (<100)
[2021-09-01 02:10] LABS: Influenza A PCR NEGATIVE (Negative); Influenza B PCR NEGATIVE (Negative); Resp Syncy Virus RNA Qual PCR NEGATIVE (Negative); SARS COV2 PCR INHOUSE NEGATIVE (Negative)
--- NOTE | 2021-09-01 03:21 | P.HPHOSP_ITS ---
History of Present Illness Date of Service: 09/01/21 Chief Complaint: Fever 85-year-old male with a past medical history of hypertension, hyperlipidemia, CVA, nonverbal, lives in [facility], history of aspiration pneumonia , history of Pseudomonas UTI presented to the hospital with a chief complaint of shortness of breath. Patient has dementia/nonverbal. drowsy and lethargic; Most of the history obtained from the records and the ER staff. Reportedly patient was sent from the [facility] because he was having of shortness of breath and tachypneic; ER team mentioned that patient on presentation noted to have fever of 102 F; chest x-ray showed concerns for aspiration pneumonitis. Patient was given IV vancomycin and Zosyn. Also noted to have KRISTINA. And wanted to admit to the hospital for further management. [facility] Medical History BPH (benign prostatic hyperplasia) Chronic anemia CVA (cerebral vascular accident) Dementia Dementia HLD (hyperlipidemia) HTN (hypertension) Neuropathy Normocytic anemia Pertinent family history: Unable to obtain as patient is dementia Social History Household Members: Other Household Members Other:: nursingn home Housing: [facility] Do you presently have visiting nurse or other home services: No Unable to assess alcohol history related to: Unknown Alcohol intake: unknown Patient Tobacco Use Status: Never used Tobacco Advance Directives: No Advance Directives Information Provided: No service: Yes Current occupational status: disabled Meds Allergies Allergy/AdvReac Type Severity Reaction Status Date / Time morphine [MORPHINE] Allergy Mild UNKNOWN Verified 05/31/21 21:53 erythromycin base Allergy Unknown UNKNOWN Verified 05/31/21 21:53 [ERYTHROMYCIN BASE] valsartan [VALSARTAN] Allergy Unknown UNKNOWN Verified 05/31/21 21:53 Active Medications: Current Medications Acetaminophen (Acetaminophen Supp 650 Mg Supp.Rect) 650 mg [place] Q6H PRN PRN Reason: Pain, Mild (Pain Scale 1-3) Piperacillin Sod/Tazobactam (Sod 2.25 gm/ Sodium Chloride) 50 mls @ 100 mls/hr IV Q6H VLADIMIR Vancomycin HCl 750 mg/ Sodium (Chloride) 265 mls @ 270 mls/hr IV ONCE ONE Stop: 09/01/21 04:10 Pharmacy Consult (Consult Rx Vancomycin Dosing) 1 each MISCELLANE DAILY PRN PRN Reason: Consult order Sodium Chloride (0.9 % Sodium Chloride Flush 3 Ml Syringe) [facility] Medication Instructions Recorded Confirmed Last Taken Type amlodipine 5 mg tablet 5 mg PO BEDTIME 04/30/21 09/01/21 08/31/21 21:00 History sertraline 50 mg tablet 50 mg PO DAILY 04/30/21 09/01/21 08/31/21 09:00 History acetaminophen 325 mg tablet 325 mg PO TID PRN 05/31/21 09/01/21 09/01/21 00:00 History aspirin 81 mg chewable tablet 81 mg PO DAILY 05/31/21 09/01/21 08/31/21 09:00 History atorvastatin 10 mg tablet 10 mg PO BEDTIME 05/31/21 09/01/21 08/31/21 21:00 History docusate sodium 100 mg capsule 100 mg PO DAILY 05/31/21 09/01/21 08/31/21 09:00 History (Colace) fentanyl 50 mcg/hr transdermal 50 mcg TRANSDERMAL Q72H 05/31/21 09/01/21 08/04/21 History patch melatonin 3 mg capsule 3 mg PO BEDTIME 05/31/21 09/01/21 08/31/21 21:00 History mirtazapine 15 mg tablet (Remeron) 7.5 mg PO BEDTIME 05/31/21 09/01/21 08/31/21 21:00 History atenolol 25 mg tablet 25 mg PO DAILY 08/07/21 09/01/21 08/31/21 10:00 History chlorhexidine gluconate 0.12 % 15 ml BUCCAL BID 08/07/21 09/01/21 Unknown History mouthwash (Periogard) omeprazole 20 mg capsule,delayed 20 mg PO DAILY@1600 08/07/21 09/01/21 08/31/21 16:00 History release polyethylene glycol 3350 17 17 g PO DAILY@0800 08/07/21 09/01/21 08/31/21 09:00 History gram/dose oral powder (Miralax) fosfomycin tromethamine 3 gram 3 g PO Q3D 09/01/21 09/01/21 08/20/21 09:00 History oral packet Physical Exam Vital Signs and Narrative: Vital Signs: Last Vital Signs Temp 99.8 F 09/01/21 02:43 Pulse 67 09/01/21 02:43 Resp 24 H 09/01/21 02:43 BP 138/49 L 09/01/21 02:43 Pulse Ox 100 09/01/21 02:43 Body Mass Index 23.1 Gen: Appears be in no acute distress HEENT: NCAT, Moist mucosa. Pulmonary: Coarse breath sounds CVS: Normal S1-S2 Abdomen: BS+, Soft, Nontender Extremities: Warm well perfused Neuro: Alert and awake Results Labs CBC and Chem 7: 09/01/21 01:15 09/01/21 01:15 Labs: Laboratory Results - last 24 hr 09/01/21 09/01/21 09/01/21 01:15 01:15 01:15 MCV 92.4 MCH 30.1 MCHC 32.6 RDW 14.0 Plt Count 189 MPV 10.1 Immature Gran % (Auto) 0.2 Neut % (Auto) 84.1 H Lymph % (Auto) 6.1 L [place] % (Auto) 9.0 Eos % (Auto) 0.4 Baso % (Auto) 0.2 Lymph # (Auto) 0.6 L [place] # (Auto) 0.9 Eos # (Auto) 0.0 Baso # (Auto) 0.0 Abs Immat Gran (auto) 0.02 Absolute Neuts (auto) 8.7 H Absolute Nucleated RBC 0.000 Nucleated RBC % (auto) 0.0 PT 13.0 INR 1.1 APTT 33.8 VBG pH VBG pCO2 VBG pO2 VBG HCO3 VBG O2 Saturation VBG Base Excess Anion Gap 14 Estim Creat Clear Calc 35.8 Estimated GFR 41 Random Glucose 165 H D Lactic Acid Calcium 9.3 Total Bilirubin 0.4 Direct Bilirubin 0.2 AST 11 ALT 6 Alkaline Phosphatase 68 D Troponin I High Sens B-Natriuretic Peptide Total Protein 7.3 Albumin 3.6 Lipase 30 Urine Color Urine Appearance Urine pH Ur Specific [place] Urine Protein Urine Glucose (UA) Urine Ketones Urine Blood Urine Nitrite Ur Leukocyte Esterase Urine RBC Urine WBC Ur Squamous Epith Cells Urine Bacteria Hyaline Casts Granular Casts Urine Mucus Coronavirus (PCR) Influenza Type A (PCR) Influenza Type B (PCR) RSV RNA Qual (PCR) 09/01/21 09/01/21 09/01/21 01:15 01:15 01:15 MCV MCH MCHC RDW Plt Count MPV Immature Gran % (Auto) Neut % (Auto) Lymph % (Auto) [place] % (Auto) Eos % (Auto) Baso % (Auto) Lymph # (Auto) [place] # (Auto) Eos # (Auto) Baso # (Auto) Abs Immat Gran (auto) Absolute Neuts (auto) Absolute Nucleated RBC Nucleated RBC % (auto) PT INR APTT VBG pH VBG pCO2 VBG pO2 VBG HCO3 VBG O2 Saturation VBG Base Excess Anion Gap Estim Creat Clear Calc Estimated GFR Random Glucose Lactic Acid 1.6 Calcium Total Bilirubin Direct Bilirubin AST ALT Alkaline Phosphatase Troponin I High Sens 7.8 B-Natriuretic Peptide 263 H Total Protein Albumin Lipase Urine Color Urine Appearance Urine pH Ur Specific [place] Urine Protein Urine Glucose (UA) Urine Ketones Urine Blood Urine Nitrite Ur Leukocyte Esterase Urine RBC Urine WBC Ur Squamous Epith Cells Urine Bacteria Hyaline Casts Granular Casts Urine Mucus Coronavirus (PCR) NEGATIVE Influenza Type A (PCR) NEGATIVE Influenza Type B (PCR) NEGATIVE RSV RNA Qual (PCR) NEGATIVE 09/01/21 09/01/21 01:15 01:24 MCV MCH MCHC RDW Plt Count MPV Immature Gran % (Auto) Neut % (Auto) Lymph % (Auto) [place] % (Auto) Eos % (Auto) Baso % (Auto) Lymph # (Auto) [place] # (Auto) Eos # (Auto) Baso # (Auto) Abs Immat Gran (auto) Absolute Neuts (auto) Absolute Nucleated RBC Nucleated RBC % (auto) PT INR APTT VBG pH 7.38 VBG pCO2 37 VBG pO2 101 VBG HCO3 23 VBG O2 Saturation 98.0 VBG Base Excess -1.6 Anion Gap Estim Creat Clear Calc Estimated GFR Random Glucose Lactic Acid Calcium Total Bilirubin Direct Bilirubin AST ALT Alkaline Phosphatase Troponin I High Sens B-Natriuretic Peptide Total Protein Albumin Lipase Urine Color YELLOW Urine Appearance CLEAR Urine pH 6.0 Ur Specific [place] 1.025 Urine Protein 2+ H Urine Glucose (UA) NEG Urine Ketones NEG Urine Blood 1+ H Urine Nitrite NEG Ur Leukocyte Esterase NEG Urine RBC 1-4 Urine WBC 1-4 Ur Squamous Epith Cells 1+ Urine Bacteria 2+ Hyaline Casts 1-4 Granular Casts 1-4 Urine Mucus 2+ Coronavirus (PCR) Influenza Type A (PCR) Influenza Type B (PCR) RSV RNA Qual (PCR) Imaging Radiologist's Impressions: Impressions Chest X-Ray 09/01/21 01:04 FINDINGS/IMPRESSION: There is bronchial wall thickening within the mid and lower lungs bilaterally with streaky opacities in the lower lobes suspicious for bronchitis and/or aspiration pneumonitis. No pleural effusion or pneumothorax. Normal heart size and pulmonary vascularity. Aorta is atherosclerotic. Assessment and Plan (1) KRISTINA (acute kidney injury): Status: Acute (2) UTI (urinary tract infection): Status: Acute (3) Pneumonia: Status: Acute 85-year-old male with a past medical history of hypertension, hyperlipi demia, CVA, nonverbal, lives in [facility], history of aspiration pneumonia , history of Pseudomonas UTI presented to the hospital with a chief complaint of shortness of breath. Noted to have aspiration pneumonia. Aspiration pneumonia: Continue IV vancomycin and Zosyn. Pharmacy consult to monitor vancomycin levels given KRISTINA. NPO Speech and swallow eval ID consult for further recommendations KRISTINA: Likely prerenal. Gentle IV fluids. Avoid nephrotoxins. History of CVA/nonverbal/dementia: Will continue to monitor. Continue home med mirtazepine, sertraline History of hypertension/hyperlipidemia: Continue home amlodipine, atenolol, statin DVT prophylaxis: SCD boots Code status: DNI only. Patient has MOLST form. Of note: Things to follow for the day hospitalist once pt care taken over at 7:00AM on 09/01/2021: Morning labs Speech and swallow eval and resume diet Resume oral medications once cleared by speech and Swallow Id consult includes Cultures Quality Stroke Does the patient have a stroke diagnosis?: No VTE Prior VTE?: No VTE Risk Level:: Medical - moderate - high VTE Device Contraindication: N/A - Device Ordered VTE Drug Contraindication: Treatment Not Indicated
[2021-09-01] MEDS: vancomycin HCL 750 MG in 0.9 % Sodium Chloride 250 ML 270 MG IV (04:00)
--- NOTE | 2021-09-01 04:36 | PC.NURSE ---
Vanco was initially ordered in a 1000 mg vial with 750 mg to be delivered. This nurse contacted pharmacy and requested that 750 mg vial be ordered instead as it is available in the [facility].
--- NOTE | 2021-09-01 06:28 | PC.NURSE ---
Nurse from [facility] called for update. This nurse informed that PT was being admitted for aspiration pneumonia.
[2021-09-01 07:19] LABS: MANUAL DIFF FLAG NO
[2021-09-01 07:22] LABS: Basophils Percent Auto 0.3 % (0-2); Eosinophils Absolute Auto 0.1 X10*3/uL (0.0-0.4); Eosinophils Percent Auto 1.3 % (0-4); Hematocrit 25.3 % (42-52); Hemoglobin 8.1 g/dl (14.0-18.0); Imm Gran Abs Auto 0.04 X10*3/uL (0.00-0.03); Imm Gran Pct Auto 0.4 % (0.0-0.4); Lymphocytes Percent Auto 9.1 % (20-40); Mean Corpuscular Hemoglobin 29.7 pg (27.0-33.0); Mean Corpuscular Volume 92.7 fL (80-98); Mean Platelet Volume 9.9 fL (9.4-12.4); Monocytes Absolute Auto 1.2 X10*3/uL (0.1-1.2); Monocytes Percent Auto 11.1 % (2-11); Neutrophils Absolute Auto 8.4 X10*3/uL (2.0-8.3); Neutrophils Percent Auto 77.8 % (45-73); Platelet Count 179 X10*3/uL (160-400); Red Blood Count 2.73 X10*6/uL (4.60-5.80); Red Cell Distribution Width 14.2 % (11.0-16.0); White Blood Count 10.8 X10*3/uL (4.8-10.8)
[2021-09-01] MEDS: Piperacillin Sodium/Tazobactam 2.25 GM in 0.9 % Sodium Chloride 50 ML IV ×3 (07:51→18:47)
[2021-09-01 07:54] LABS: Anion Gap 12 (12-20); Blood Urea Nitrogen 46 mg/dL (9-16); Calcium 8.3 mg/dL (8.4-10.2); Carbon Dioxide 22 mmol/L (22-29); Chloride 115 mmol/L (96-108); Creatinine Clr Calc Pharmacy 40.6; Estimated Glomerular Filt Rate 48; Glucose Random 124 mg/dL (60-115); Potassium 4.6 mmol/L (3.3-5.1); Sodium 144 mmol/L (135-145)
[2021-09-01] MEDS: Aspirin 81 MG TAB.CHEW PO (09:20)
[2021-09-01] MEDS: Lactated Ringers 1,000 ML 50 ML IVCONT (09:20)
[2021-09-01] MEDS: Sertraline HCL 50 MG TABLET PO (09:20)
[2021-09-01] MEDS: 0.9 % Sodium Chloride Flush 3 ML SYRINGE IVFLUSH (09:25)
--- NOTE | 2021-09-01 09:27 | PC.NURSE ---
Pt resting quietly in bed, with noxious stimuli pt opens eyes and tracks around room. Non verbal at baseline. Spoke to daughter Verito and updated on current status. Pt give abx for pna. No diff breathing or SOB noted on exam, congested. NSR on tele. HR as low as mid 50s, Atenolol held. Vance in place aprrox 150ml in drainage bag at this time of yellow urine. 02 increased to 3l, sat 95%, pt breathing primarily from mouth
[2021-09-01 09:42] LABS: Procalcitonin 0.73 ng/mL
--- NOTE | 2021-09-01 13:30 | PC.NURSE ---
Pt resting, occasional will yell out. Upon assessment no grimace noted. Feels hot to touch when repositioning to right side, rectal temp 99.6, tylenol given rectally as charted.
[2021-09-01 15:59] LABS: Adenovirus PCR Not Detected (Not Detect.); Bordetella parapertussis PCR Not Detected (Not Detect.); Bordetella pertussis PCR Not Detected (Not Detect.); Chlamydia pneumoniae PCR Not Detected (Not Detect.); Coronavirus 229E PCR Not Detected (Not Detect.); Coronavirus HKU1 PCR Not Detected (Not Detect.); Coronavirus NL63 PCR Not Detected (Not Detect.); Coronavirus OC43 PCR Not Detected (Not Detect.); Human metapneumovirus PCR Not Detected (Not Detect.); Influenza A PCR Not Detected (Not Detect.); Influenza B PCR Not Detected (Not Detect.); Mycoplasma pneumoniae PCR Not Detected (Not Detect.); Parainfluenza 1 PCR Not Detected (Not Detect.); Parainfluenza 2 PCR Not Detected (Not Detect.); Parainfluenza 3 PCR Not Detected (Not Detect.); Parainfluenza 4 PCR Not Detected (Not Detect.); RSV PCR Not Detected (Not Detect.); Rhino/Enterovirus PCR Not Detected (Not Detect.); SARS-CoV-2 PCR Not Detected (Not Detect.)
--- NOTE | 2021-09-01 17:18 | PC.NURSE ---
pt moved to rm 22, this nurse took report from alicja, patient currently sleeping, ivf running per order, will continue to monitor.
--- NOTE | 2021-09-01 17:22 | MHC.SLORD ---
Speech Language Pathology Order Status: Patient was asleep at time of visit. Per RN report, he has only been responsive to noxious stimuli today. PO trials not appropriate at this time. [employer] will attempt tomorrow morning.
--- NOTE | 2021-09-01 17:26 | P.PNIM_ITS ---
Subjective Subjective Date of Service: 09/01/21 Interval History: Unable to obtain ROS due to underlying dementia with superimposed encephalopathy Per pt's PCP, Dr Donaldson, pt might be appropriate hospice candidate He is DNR but CPR OK Review of Systems Review of Systems: Yes Unobtainable due to mental status Physical Exam Vital Signs: Vital Signs: Last Vital Signs Temp 99.6 F 09/01/21 13:30 Pulse 66 09/01/21 13:30 Resp 18 09/01/21 13:30 BP 126/45 L 09/01/21 13:30 Pulse Ox 99 09/01/21 13:30 Body Mass Index 23.1 Gen: awake but non-verbal HEENT: sclera anicteric, dry mucosa Neck: supple Lungs: coarse crackles bilaterally Heart: regular rate and rhythm, no murmurs Abd: soft, non-tender, non-distended Ext: no edema Skin: warm/well-perfused Neuro: alert, unable to assess orientation, squeezes hands and moves feet to co mmand Psych: impaired insight Objective Data Active Medications Acetaminophen (Acetaminophen Supp 650 Mg Supp.Rect) 650 mg [place] Q6H PRN PRN Reason: Pain, Mild (Pain Scale 1-3) Last Admin: 09/01/21 13:29 Dose: 650 mg Documented by: GINA Acetaminophen (Acetaminophen 325 Mg Tablet) 325 mg PO TID PRN PRN Reason: Pain, Mild (Pain Scale 1-3) Amlodipine Besylate (Amlodipine Besylate 5 Mg Tablet) 5 mg PO BEDTIME [facility]; Protocol Aspirin (Aspirin 81 Mg Tab.Chew) 81 mg PO DAILY [facility] Last Admin: 09/01/21 09:20 Dose: 81 mg Documented by: GINA Atenolol (Atenolol 25 Mg Tablet) 25 mg PO DAILY [facility]; Protocol Last Admin: 09/01/21 09:24 Dose: Not Given Documented by: GINA Non-Admin Reason: Decreased Heart Rate Atorvastatin Calcium (Atorvastatin Calcium 10 Mg Tablet) 10 mg PO BEDTIME VLADIMIR Chlorhexidine Gluconate (Chlorhexidine Gluc Oral Rinse 15 Ml Mouthwash) 15 ml BUCCAL BID [facility] Last Admin: 09/01/21 09:25 Dose: Not Given Documented by: GINA Non-Admin Reason: NPO Docusate Sodium (Docusate Sodium 100 Mg Capsule) 100 mg PO DAILY [facility] Last Admin: 09/01/21 09:25 Dose: Not Given Documented by: GINA Non-Admin Reason: NPO Fentanyl (Fentanyl 50 Mcg Patch.Td72) 50 mcg TRANSDERMA Q72H [facility] Piperacillin Sod/Tazobactam (Sod 2.25 gm/ Sodium Chloride) 50 mls @ 100 mls/hr IV Q6H [facility] Last Infusion: 09/01/21 14:32 Dose: 0 mls/hr Documented by: GINA Vancomycin HCl 1,000 mg/ (Sodium Chloride) 270 mls @ 270 mls/hr IV Q24H [facility] Lactated Ringer's (Lr) 1,000 mls @ 50 mls/hr IVCONT .Q20H [facility] Stop: 09/02/21 04:44 Last Admin: 09/01/21 09:20 Dose: 50 mls/hr Documented by: GINA Melatonin (Melatonin 3 Mg Tablet) 3 mg PO BEDTIME VLADIMIR Mirtazapine (Mirtazapine 7.5 Mg Tablet) 7.5 mg PO BEDTIME VLADIMIR Omeprazole (Omeprazole 20 Mg Capsule.Dr) 20 mg PO DAILY@1600 [facility] Last Admin: 09/01/21 17:18 Dose: Not Given Documented by: GIOVANNI Non-Admin Reason: NPO Oxycodone HCl (Oxycodone Hcl Immed Release 5 Mg Tablet) 5 mg PO Q6H PRN PRN Reason: Pain, Severe (Pain Scale 7-10) Pharmacy Consult (Consult Rx Vancomycin Dosing) 1 each MISCELLANE DAILY PRN PRN Reason: Consult order Polyethylene Glycol (Polyethylene Glycol 3350 17 Gm Powd.Pack) 17 gm PO DAILY@0800 [facility] Last Admin: 09/01/21 09:25 Dose: Not Given Documented by: GINA Non-Admin Reason: NPO Sertraline HCl (Sertraline Hcl 50 Mg Tablet) 50 mg PO DAILY [facility] Last Admin: 09/01/21 09:20 Dose: 50 mg Documented by: GINA Sodium Chloride (0.9 % Sodium Chloride Flush 3 Ml Syringe) 3 ml IVFLUSH QSHIFT [facility] Last Admin: 09/01/21 17:18 Dose: Not Given Documented by: GIOVANNI Non-Admin Reason: IV Running Tamsulosin HCl (Tamsulosin Hcl 0.4 Mg Capsule) 0.4 mg PO DAILY@2000 [facility] Labs CBC & Chem 7: 09/01/21 07:07 09/01/21 07:07 Labs: Laboratory Results - last 24 hr 09/01/21 09/01/21 09/01/21 01:15 01:15 01:15 MCV 92.4 MCH 30.1 MCHC 32.6 RDW 14.0 Plt Count 189 MPV 10.1 Immature Gran % (Auto) 0.2 Neut % (Auto) 84.1 H Lymph % (Auto) 6.1 L [place] % (Auto) 9.0 Eos % (Auto) 0.4 Baso % (Auto) 0.2 Lymph # (Auto) 0.6 L [place] # (Auto) 0.9 Eos # (Auto) 0.0 Baso # (Auto) 0.0 Abs Immat Gran (auto) 0.02 Absolute Neuts (auto) 8.7 H Absolute Nucleated RBC 0.000 Nucleated RBC % (auto) 0.0 PT 13.0 INR 1.1 APTT 33.8 VBG pH VBG pCO2 VBG pO2 VBG HCO3 VBG O2 Saturation VBG Base Excess Anion Gap 14 Estim Creat Clear Calc 35.8 Estimated GFR 41 Random Glucose 165 H D Lactic Acid Calcium 9.3 Total Bilirubin 0.4 Direct Bilirubin 0.2 AST 11 ALT 6 Alkaline Phosphatase 68 D Troponin I High Sens B-Natriuretic Peptide Total Protein 7.3 Albumin 3.6 Lipase 30 Procalcitonin Urine Color Urine Appearance Urine pH Ur Specific [place] Urine Protein Urine Glucose (UA) Urine Ketones Urine Blood Urine Nitrite Ur Leukocyte Esterase Urine RBC Urine WBC Ur Squamous Epith Cells Urine Bacteria Hyaline Casts Granular Casts Urine Mucus Coronavirus (PCR) Influenza Type A (PCR) Influenza Type B (PCR) RSV RNA Qual (PCR) 09/01/21 09/01/21 09/01/21 01:15 01:15 01:15 MCV MCH MCHC RDW Plt Count MPV Immature Gran % (Auto) Neut % (Auto) Lymph % (Auto) [place] % (Auto) Eos % (Auto) Baso % (Auto) Lymph # (Auto) [place] # (Auto) Eos # (Auto) Baso # (Auto) Abs Immat Gran (auto) Absolute Neuts (auto) Absolute Nucleated RBC Nucleated RBC % (auto) PT INR APTT VBG pH VBG pCO2 VBG pO2 VBG HCO3 VBG O2 Saturation VBG Base Excess Anion Gap Estim Creat Clear Calc Estimated GFR Random Glucose Lactic Acid 1.6 Calcium Total Bilirubin Direct Bilirubin AST ALT Alkaline Phosphatase Troponin I High Sens 7.8 B-Natriuretic Peptide 263 H Total Protein Albumin Lipase Procalcitonin Urine Color Urine Appearance Urine pH Ur Specific [place] Urine Protein Urine Glucose (UA) Urine Ketones Urine Blood Urine Nitrite Ur Leukocyte Esterase Urine RBC Urine WBC Ur Squamous Epith Cells Urine Bacteria Hyaline Casts Granular Casts Urine Mucus Coronavirus (PCR) NEGATIVE Influenza Type A (PCR) NEGATIVE Influenza Type B (PCR) NEGATIVE RSV RNA Qual (PCR) NEGATIVE 09/01/21 09/01/21 09/01/21 01:15 01:24 07:07 MCV 92.7 MCH 29.7 MCHC 32.0 RDW 14.2 Plt Count 179 MPV 9.9 Immature Gran % (Auto) 0.4 Neut % (Auto) 77.8 H Lymph % (Auto) 9.1 L [place] % (Auto) 11.1 H Eos % (Auto) 1.3 Baso % (Auto) 0.3 Lymph # (Auto) 1.0 L [place] # (Auto) 1.2 Eos # (Auto) 0.1 Baso # (Auto) 0.0 Abs Immat Gran (auto) 0.04 H Absolute Neuts (auto) 8.4 H Absolute Nucleated RBC 0.000 Nucleated RBC % (auto) 0.0 PT INR APTT VBG pH 7.38 VBG pCO2 37 VBG pO2 101 VBG HCO3 23 VBG O2 Saturation 98.0 VBG Base Excess -1.6 Anion Gap Estim Creat Clear Calc Estimated GFR Random Glucose Lactic Acid Calcium Total Bilirubin Direct Bilirubin AST ALT Alkaline Phosphatase Troponin I High Sens B-Natriuretic Peptide Total Protein Albumin Lipase Procalcitonin Urine Color YELLOW Urine Appearance CLEAR Urine pH 6.0 Ur Specific [place] 1.025 Urine Protein 2+ H Urine Glucose (UA) NEG Urine Ketones NEG Urine Blood 1+ H Urine Nitrite NEG Ur Leukocyte Esterase NEG Urine RBC 1-4 Urine WBC 1-4 Ur Squamous Epith Cells 1+ Urine Bacteria 2+ Hyaline Casts 1-4 Granular Casts 1-4 Urine Mucus 2+ Coronavirus (PCR) Influenza Type A (PCR) Influenza Type B (PCR) RSV RNA Qual (PCR) 09/01/21 09/01/21 07:07 07:07 MCV MCH MCHC RDW Plt Count MPV Immature Gran % (Auto) Neut % (Auto) Lymph % (Auto) [place] % (Auto) Eos % (Auto) Baso % (Auto) Lymph # (Auto) [place] # (Auto) Eos # (Auto) Baso # (Auto) Abs Immat Gran (auto) Absolute Neuts (auto) Absolute Nucleated RBC Nucleated RBC % (auto) PT INR APTT VBG pH VBG pCO2 VBG pO2 VBG HCO3 VBG O2 Saturation VBG Base Excess Anion Gap 12 Estim Creat Clear Calc 40.6 Estimated GFR 48 Random Glucose 124 H Lactic Acid Calcium 8.3 L D Total Bilirubin Direct Bilirubin AST ALT Alkaline Phosphatase Troponin I High Sens B-Natriuretic Peptide Total Protein Albumin Lipase Procalcitonin 0.73 Urine Color Urine Appearance Urine pH Ur Specific [place] Urine Protein Urine Glucose (UA) Urine Ketones Urine Blood Urine Nitrite Ur Leukocyte Esterase Urine RBC Urine WBC Ur Squamous Epith Cells Urine Bacteria Hyaline Casts Granular Casts Urine Mucus Coronavirus (PCR) Influenza Type A (PCR) Influenza Type B (PCR) RSV RNA Qual (PCR) Assessment and Plan (1) KRISTINA (acute kidney injury): Status: Acute (2) Pneumonia: Status: Acute Assessment and Plan: hospital d#1 85yo nonverbal M resident of [facility] with HTN, HLD, prior CVA, hx aspiration PNA, hx Pseudomonas UTI presenting with dyspnea, tachypnea, and lethargy admitted for sepsis and hypoxia from pneumonia # sepsis due to pneumonia, HCAP vs aspiration - continue vanco + pip/hailey d#1, follow BCx, trend PCT, check RVP + Legionella UAg, ID consult pending # KRISTINA - likely pre-renal vs septic ATN, give IV fluid hydration, avoid nephrotoxins, recheck BMP in am # HTN - conitnue atenolol + amlodipine # CVA - continue statin, ASA # encephalopathy, septic vs. toxic-metabolic, superimposed on dementia - NPO, ACTIVITY COORDINATOR evaluation - continue sertraline, mirtazapine # chronic pain - fentanyl patch # BPH - tamsulosin # VTE ppx - UFH # dispo - anticipate return to [facility], discuss hospice with family Quality Stroke Does the patient have a stroke diagnosis?: No VTE Prior VTE?: No VTE Risk Level:: Medical - moderate - high VTE Device Contraindication: N/A - Device Ordered VTE Drug Contraindication: Treatment Not Indicated
[2021-09-01] MEDS: Heparin Sodium,Porcine 5,000 UNIT/ML VIAL 5000 UNIT SUBCUT (18:47)
--- NOTE | 2021-09-01 18:55 | PC.NURSE ---
patient wakes to verbal stimulus, non verbal at baseline, sam cath patient/draining- urine obtained, warehouse inventory clerk intact sinus mary 50s-60s, vss, iv antibiotics running per order, will coninue to monitor.
--- NOTE | 2021-09-01 19:51 | PC.NURSE ---
called floor to give report, rn will call back
--- NOTE | 2021-09-01 21:17 | W.PM.IDCN ---
History of Present Illness Data of Consult Service Date: 09/01/21 Requesting physician: Mimi Paredes Primary Care Provider: Unknown Physician HPI Reason for consult: pneumonia He was brought to ER by SNF with worsening mental status for a day. he has shortness of breath and now is on 3 liters nasal cannula. He has basilar opacities. He is nonverbal and not alert and has mouth open. Review of Systems Review of Systems: Yes Unobtainable due to mental condition PMFSH Past Medical History Medical History Aspiration pneumonia BPH (benign prostatic hyperplasia) Chronic anemia CVA (cerebral vascular accident) Dementia Dementia HLD (hyperlipidemia) HTN (hypertension) Neuropathy Normocytic anemia Family History Family history: reviewed and not pertinent Social History Social History Household Members: Other Household Members Other:: lives at [facility] Housing: [facility] Do you presently have visiting nurse or other home services: No Unable to assess alcohol history related to: Unable to respond Alcohol intake: unknown Patient Tobacco Use Status: Never used Tobacco service: Yes Current occupational status: disabled Meds Allergies Allergy/AdvReac Type Severity Reaction Status Date / Time morphine [MORPHINE] Allergy Mild UNKNOWN Verified 05/31/21 21:53 erythromycin base Allergy Unknown UNKNOWN Verified 05/31/21 21:53 [ERYTHROMYCIN BASE] valsartan [VALSARTAN] Allergy Unknown UNKNOWN Verified 05/31/21 21:53 Active Medications: Current Medications Acetaminophen (Acetaminophen Supp 650 Mg Supp.Rect) 650 mg IN Q6H PRN PRN Reason: Pain, Mild (Pain Scale 1-3) Last Admin: 09/01/21 13:29 Dose: 650 mg Documented by: Acetaminophen (Acetaminophen 325 Mg Tablet) 325 mg PO TID PRN PRN Reason: Pain, Mild (Pain Scale 1-3) Amlodipine Besylate (Amlodipine Besylate 5 Mg Tablet) 5 mg PO BEDTIME [facility]; Protocol Aspirin (Aspirin 81 Mg Tab.Chew) 81 mg PO DAILY [facility] Last Admin: 09/01/21 09:20 Dose: 81 mg Documented by: Atenolol (Atenolol 25 Mg Tablet) 25 mg PO DAILY [facility]; Protocol Last Admin: 09/01/21 09:24 Dose: Not Given Documented by: Atorvastatin Calcium (Atorvastatin Calcium 10 Mg Tablet) 10 mg PO BEDTIME [facility] Chlorhexidine Gluconate (Chlorhexidine Gluc Oral Rinse 15 Ml Mouthwash) 15 ml BUCCAL BID [facility] Last Admin: 09/01/21 09:25 Dose: Not Given Documented by: Docusate Sodium (Docusate Sodium 100 Mg Capsule) 100 mg PO DAILY [facility] Last Admin: 09/01/21 09:25 Dose: Not Given Documented by: Fentanyl (Fentanyl 50 Mcg Patch.Td72) 50 mcg TRANSDERMA Q72H [facility] Heparin Sodium (Porcine) (Heparin Sodium,Porcine 5,000 Unit/Ml Vial) 5,000 unit SUBCUT Q12H [facility] Last Admin: 09/01/21 18:47 Dose: 5,000 unit Documented by: Piperacillin Sod/Tazobactam (Sod 2.25 gm/ Sodium Chloride) 50 mls @ 100 mls/hr IV Q6H [facility] Last Infusion: 09/01/21 19:29 Dose: Infused Documented by: Vancomycin HCl 1,000 mg/ (Sodium Chloride) 270 mls @ 270 mls/hr IV Q24H [facility] Lactated Ringer's (Lr) 1,000 mls @ 50 mls/hr IVCONT .Q20H [facility] Stop: 09/02/21 04:44 Last Admin: 09/01/21 09:20 Dose: 50 mls/hr Documented by: Melatonin (Melatonin 3 Mg Tablet) 3 mg PO BEDTIME [facility] Mirtazapine (Mirtazapine 7.5 Mg Tablet) 7.5 mg PO BEDTIME [facility] Omeprazole (Omeprazole 20 Mg Capsule.Dr) 20 mg PO DAILY@1600 [facility] Last Admin: 09/01/21 17:18 Dose: Not Given Documented by: Oxycodone HCl (Oxycodone Hcl Immed Release 5 Mg Tablet) 5 mg PO Q6H PRN PRN Reason: Pain, Severe (Pain Scale 7-10) Pharmacy Consult (Consult Rx Vancomycin Dosing) 1 each MISCELLANE DAILY PRN PRN Reason: Consult order Polyethylene Glycol (Polyethylene Glycol 3350 17 Gm Powd.Pack) 17 gm PO DAILY@0800 [facility] Last Admin: 09/01/21 09:25 Dose: Not Given Documented by: Sertraline HCl (Sertraline Hcl 50 Mg Tablet) 50 mg PO DAILY [facility] Last Admin: 09/01/21 09:20 Dose: 50 mg Documented by: Sodium Chloride (0.9 % Sodium Chloride Flush 3 Ml Syringe) 3 ml IVFLUSH QSHIFT [facility] Last Admin: 09/01/21 17:18 Dose: Not Given Documented by: Tamsulosin HCl (Tamsulosin Hcl 0.4 Mg Capsule) 0.4 mg PO DAILY@1999 [facility] Home Medications Medication Instructions Recorded Confirmed Last Taken Type chlorhexidine gluconate 0.12 % 15 ml BUCCAL BID 08/07/21 09/01/21 Unknown History mouthwash (Periogard) Physical Exam Vital Signs: Vital Signs: Last Vital Signs Temp 98.7 F 09/01/21 20:03 Pulse 66 09/01/21 18:50 Resp 17 09/01/21 18:50 BP 157/63 H 09/01/21 18:50 Pulse Ox 99 09/01/21 18:50 Body Mass Index 23.1 Const: General: patient obtunded Orientation/consciousness: patient obtunded HENMT: Head: Yes normal to inspection Mouth: moist mucous membranes abnormal Throat: Yes posterior oropharynx normal Eyes: General: appearance normal, both eyes and all related structures Resp: Effort & Inspection: normal respiratory effort Cardio: Rate: regular rate Rhythm: regular rhythm Peripheral pulses: popliteal pulses present Neuro: General: patient obtunded Results Labs CBC & Chem 7: 09/03/21 05:57 09/03/21 05:57 Labs: Short CBC 09/01/21 09/01/21 Range/Units 01:15 07:07 WBC 10.3 10.8 (4.8-10.8) X10*3/uL Hgb 8.7 L 8.1 L (14.0-18.0) g/dl Hct 26.7 L 25.3 L (42-52) % Plt Count 189 179 (160-400) X10*3/uL BMP 09/01/21 09/01/21 01:15 07:07 Sodium 142 144 Potassium 4.6 D 4.6 Chloride 111 H 115 H Carbon Dioxide 22 22 BUN 52 H D 46 H Creatinine 1.61 H 1.42 H Calcium 9.3 8.3 L D Liver Function 09/01/21 Range/Units 01:15 Total Bilirubin 0.4 (0.0-1.0) mg/dL Direct Bilirubin 0.2 (0.0-0.5) mg/dL AST 11 (5-37) U/L ALT 6 (0-40) U/L Alkaline Phosphatase 68 D (39-117) U/L Albumin 3.6 (3.5-5.0) g/dL Urine 09/01/21 Range/Units 01:15 Urine Color YELLOW Urine Appearance CLEAR Urine pH 6.0 (5.0-8.0) Ur Specific [place] 1.025 (1.005-1.025) Urine Protein 2+ H (NEG-TRACE) MG/DL Urine Glucose (UA) NEG (NEG) MG/DL Assessment and Plan (1) Pneumonia: Status: Acute (2) KRISTINA (acute kidney injury): Status: Acute (3) Aspiration pneumonia: Status: Acute He may receive Zosyn and Vancomycin Stop Vancomycin if neg nares MRSA IV should be 5-7 days and then po Augmtin
[2021-09-01] MEDS: vancomycin HCL 1,000 MG in 0.9 % Sodium Chloride 250 ML 270 MG IV (23:56)
[2021-09-02] VITALS (7 sets, daily range): BP systolic 111–148; BP diastolic 53–74; PULSE 63–73; RESP 18–20; TEMP 36.4–36.9; O2SAT 94–98; BMI 23.1
[2021-09-02] MEDS: Piperacillin Sodium/Tazobactam 2.25 GM in 0.9 % Sodium Chloride 50 ML IV ×4 (02:02→18:40)
[2021-09-02] MEDS: Heparin Sodium,Porcine 5,000 UNIT/ML VIAL 5000 UNIT SUBCUT ×2 (05:57→18:40)
[2021-09-02 07:04] LABS: MANUAL DIFF FLAG NO
[2021-09-02 07:13] LABS: Basophils Percent Auto 0.4 % (0-2); Eosinophils Absolute Auto 0.7 X10*3/uL (0.0-0.4); Eosinophils Percent Auto 9.5 % (0-4); Hematocrit 24.4 % (42-52); Hemoglobin 7.9 g/dl (14.0-18.0); Imm Gran Abs Auto 0.03 X10*3/uL (0.00-0.03); Imm Gran Pct Auto 0.4 % (0.0-0.4); Lymphocytes Absolute Auto 1.5 X10*3/uL (1.2-4.9); Lymphocytes Percent Auto 19.7 % (20-40); Mean Corpuscular HGB Conc 32.4 g/dl (31.0-36.0); Mean Corpuscular Volume 92.8 fL (80-98); Mean Platelet Volume 10.2 fL (9.4-12.4); Monocytes Absolute Auto 0.7 X10*3/uL (0.1-1.2); Monocytes Percent Auto 9.8 % (2-11); Neutrophils Absolute Auto 4.5 X10*3/uL (2.0-8.3); Neutrophils Percent Auto 60.2 % (45-73); Platelet Count 171 X10*3/uL (160-400); Red Blood Count 2.63 X10*6/uL (4.60-5.80); Red Cell Distribution Width 14.2 % (11.0-16.0); White Blood Count 7.5 X10*3/uL (4.8-10.8)
[2021-09-02 07:36] LABS: Anion Gap 13 (12-20); Blood Urea Nitrogen 40 mg/dL (9-16); Calcium 8.7 mg/dL (8.4-10.2); Carbon Dioxide 21 mmol/L (22-29); Chloride 117 mmol/L (96-108); Creatinine Clr Calc Pharmacy 44.1; Estimated Glomerular Filt Rate 52; Glucose Random 80 mg/dL (60-115); Potassium 4.2 mmol/L (3.3-5.1); Sodium 147 mmol/L (135-145)
[2021-09-02] MEDS: Dextrose 5 % 1,000 ML 50 ML IVCONT (09:34)
[2021-09-02] MEDS: fentaNYL 50 MCG PATCH.TD72 TRANSDERMA (09:48)
[2021-09-02 10:11] LABS: MRSA Nasal PCR POSITIVE (Negative); SA Nasal PCR POSITIVE (Negative)
--- NOTE | 2021-09-02 10:54 | P.PNIM_ITS ---
Subjective Subjective Date of Service: 09/02/21 Interval History: unable to obtain ROS due to encephalopathy/dementia awake but not verbal Review of Systems Review of Systems: Yes Unobtainable due to mental status Physical Exam Vital Signs: Vital Signs: Last Vital Signs Temp 98 F 09/02/21 08:00 Pulse 73 09/02/21 07:12 Resp 20 09/02/21 07:12 BP 148/74 H 09/02/21 07:12 Pulse Ox 94 09/02/21 07:12 Body Mass Index 23.1 Gen: awake but non-verbal HEENT: sclera anicteric, dry mucosa Neck: supple Lungs: coarse crackles bilaterally Heart: regular rate and rhythm, no murmurs Abd: soft, non-tender, non-distended Ext: no edema Skin: warm/well-perfused Neuro: alert, unable to assess orientation, squeezes hands and moves feet to command Psych: impaired insight Objective Data Active Medications Acetaminophen (Acetaminophen Supp 650 Mg Supp.Rect) 650 mg [place] Q6H PRN PRN Reason: Pain, Mild (Pain Scale 1-3) Last Admin: 09/01/21 13:29 Dose: 650 mg Documented by: GINA Acetaminophen (Acetaminophen 325 Mg Tablet) 325 mg PO TID PRN PRN Reason: Pain, Mild (Pain Scale 1-3) Amlodipine Besylate (Amlodipine Besylate 5 Mg Tablet) 5 mg PO BEDTIME [facility]; Protocol Last Admin: 09/01/21 22:50 Dose: Not Given Documented by: IRIS Non-Admin Reason: NPO Aspirin (Aspirin 81 Mg Tab.Chew) 81 mg PO DAILY [facility] Last Admin: 09/02/21 09:37 Dose: Not Given Documented by: WILLOW Non-Admin Reason: pending speech eval Atenolol (Atenolol 25 Mg Tablet) 25 mg PO DAILY [facility]; Protocol Last Admin: 09/02/21 09:37 Dose: Not Given Documented by: WILLOW Non-Admin Reason: pending speech eval Atorvastatin Calcium (Atorvastatin Calcium 10 Mg Tablet) 10 mg PO BEDTIME [facility] Last Admin: 09/01/21 22:50 Dose: Not Given Documented by: IRIS Non-Admin Reason: NPO Chlorhexidine Gluconate (Chlorhexidine Gluc Oral Rinse 15 Ml Mouthwash) 15 ml BUCCAL BID [facility] Last Admin: 09/02/21 09:37 Dose: Not Given Documented by: WILLOW Non-Admin Reason: pending speech eval Docusate Sodium (Docusate Sodium 100 Mg Capsule) 100 mg PO DAILY [facility] Last Admin: 09/02/21 09:38 Dose: Not Given Documented by: WILLOW Non-Admin Reason: pending speech eval Fentanyl (Fentanyl 50 Mcg Patch.Td72) 50 mcg TRANSDERMA Q72H [facility] Last Admin: 09/02/21 09:48 Dose: 50 mcg Documented by: WILLOW Heparin Sodium (Porcine) (Heparin Sodium,Porcine 5,000 Unit/Ml Vial) 5,000 unit SUBCUT Q12H [facility] Last Admin: 09/02/21 05:57 Dose: 5,000 unit Documented by: IRIS Piperacillin Sod/Tazobactam (Sod 2.25 gm/ Sodium Chloride) 50 mls @ 100 mls/hr IV Q6H [facility] Last Infusion: 09/02/21 06:30 Dose: 0 mls/hr Documented by: IRIS Vancomycin HCl 1,000 mg/ (Sodium Chloride) 270 mls @ 270 mls/hr IV Q24H [facility] Last Infusion: 09/02/21 00:55 Dose: 0 mls/hr Documented by: IRIS Dextrose (D5w) 1,000 mls @ 50 mls/hr IVCONT .Q20H [facility] Last Admin: 09/02/21 09:34 Dose: 50 mls/hr Documented by: WILLOW Melatonin (Melatonin 3 Mg Tablet) 3 mg PO BEDTIME [facility] Last Admin: 09/01/21 22:50 Dose: Not Given Documented by: IRIS Non-Admin Reason: NPO Mirtazapine (Mirtazapine 7.5 Mg Tablet) 7.5 mg PO BEDTIME [facility] Last Admin: 09/01/21 22:50 Dose: Not Given Documented by: IRIS Non-Admin Reason: NPO Omeprazole (Omeprazole 20 Mg Capsule.) 20 mg PO DAILY@1600 [facility] Last Admin: 09/01/21 17:18 Dose: Not Given Documented by: GIOVANNI Non-Admin Reason: NPO Oxycodone HCl (Oxycodone Hcl Immed Release 5 Mg Tablet) 5 mg PO Q6H PRN PRN Reason: Pain, Severe (Pain Scale 7-10) Pharmacy Consult (Consult Rx Vancomycin Dosing) 1 each MISCELLANE DAILY PRN PRN Reason: Consult order Polyethylene Glycol (Polyethylene Glycol 3350 17 Gm Powd.Pack) 17 gm PO DAILY@0800 [facility] Last Admin: 09/02/21 09:37 Dose: Not Given Documented by: WILLOW Non-Admin Reason: pending speech eval Sertraline HCl (Sertraline Hcl 50 Mg Tablet) 50 mg PO DAILY [facility] Last Admin: 09/02/21 09:38 Dose: Not Given Documented by: WILLOW Non-Admin Reason: pending speech eval Sodium Chloride (0.9 % Sodium Chloride Flush 3 Ml Syringe) 3 ml IVFLUSH QSHIFT [facility] Last Admin: 09/02/21 09:37 Dose: Not Given Documented by: WILLOW Non-Admin Reason: IV Running Tamsulosin HCl (Tamsulosin Hcl 0.4 Mg Capsule) 0.4 mg PO DAILY@1999 [facility] Last Admin: 09/01/21 22:50 Dose: Not Given Documented by: IRIS Non-Admin Reason: NPO Labs CBC & Chem 7: 09/02/21 06:26 09/02/21 06:26 Labs: Laboratory Results - last 24 hr 09/01/21 09/01/21 09/01/21 15:50 16:18 21:25 MCV MCH MCHC RDW Plt Count MPV Immature Gran % (Auto) Neut % (Auto) Lymph % (Auto) Boundary % (Auto) Eos % (Auto) Baso % (Auto) Lymph # (Auto) Boundary # (Auto) Eos # (Auto) Baso # (Auto) Abs Immat Gran (auto) Absolute Neuts (auto) Absolute Nucleated RBC Nucleated RBC % (auto) Anion Gap Estim Creat Clear Calc Estimated GFR Random Glucose Calcium Nasal Screen MRSA (PCR) POSITIVE A TNP Nasal S. aureus Screen POSITIVE A TNP Nasal MRSA/S.aureus Interp SEE NOTE TNP Respiratory Panel [place] See Note Adenovirus (Rapid PCR) Not Detected B.pert (TEM-PCR) Not Detected B.parapertussis DNA PCR Not Detected C. pneumoniae DNA (PCR) Not Detected Coronavirus OC43 (PCR) Not Detected Coronavirus HKU1 (PCR) Not Detected Coronavirus 229E (PCR) Not Detected Coronavirus NL63 (PCR) Not Detected Human Metapneumovir PCR Not Detected Influenza A (RT-PCR) Not Detected Influenza B (RT-PCR) Not Detected M. pneumoniae (PCR) Not Detected Parainfluenza 1 (PCR) Not Detected Parainfluenza 2 (PCR) Not Detected Parainfluenza 3 (PCR) Not Detected Parainfluenza 4 (PCR) Not Detected RSV (PCR) Not Detected Entero/Rhino (PCR) Not Detected SARS-CoV-2 RNA (RT-PCR) Not Detected 09/02/21 09/02/21 06:26 06:26 MCV 92.8 MCH 30.0 MCHC 32.4 RDW 14.2 Plt Count 171 MPV 10.2 Immature Gran % (Auto) 0.4 Neut % (Auto) 60.2 Lymph % (Auto) 19.7 L Boundary % (Auto) 9.8 Eos % (Auto) 9.5 H Baso % (Auto) 0.4 Lymph # (Auto) 1.5 Boundary # (Auto) 0.7 Eos # (Auto) 0.7 H Baso # (Auto) 0.0 Abs Immat Gran (auto) 0.03 Absolute Neuts (auto) 4.5 Absolute Nucleated RBC 0.000 Nucleated RBC % (auto) 0.0 Anion Gap 13 Estim Creat Clear Calc 44.1 Estimated GFR 52 Random Glucose 80 D Calcium 8.7 Nasal Screen MRSA (PCR) Nasal S. aureus Screen Nasal MRSA/S.aureus Interp Respiratory Panel [place] Adenovirus (Rapid PCR) B.pert (TEM-PCR) B.parapertussis DNA PCR C. pneumoniae DNA (PCR) Coronavirus OC43 (PCR) Coronavirus HKU1 (PCR) Coronavirus 229E (PCR) Coronavirus NL63 (PCR) Human Metapneumovir PCR Influenza A (RT-PCR) Influenza B (RT-PCR) M. pneumoniae (PCR) Parainfluenza 1 (PCR) Parainfluenza 2 (PCR) Parainfluenza 3 (PCR) Parainfluenza 4 (PCR) RSV (PCR) Entero/Rhino (PCR) SARS-CoV-2 RNA (RT-PCR) Microbiology Microbiology Results: Microbiology 09/01/21 01:14 Blood Culture - Preliminary Blood - Venous No growth after 24 hours. 09/01/21 01:14 Blood Culture - Preliminary Blood - Venous No growth after 24 hours. Assessment and Plan (1) KRISTINA (acute kidney injury): Status: Acute (2) Pneumonia: Status: Acute Assessment and Plan: hospital d#2 85yo nonverbal M resident of [facility] with HTN, HLD, prior CVA, hx aspiration PNA, hx Pseudomonas UTI presenting with dyspnea, tachypnea, and lethargy admitted for sepsis and hypoxia from pneumonia # sepsis due to pneumonia, HCAP vs aspiration - continue vanco + pip/hailey d#2. MRSA nasal swab positive, so continue to cover - RVP negative - follow BCx, trend PCT, Legionella UAg pending - ID consulted # hyperNa - likely hypovolemic. will give 1L D5W over 20hr, which should bring Na down to around 143 # KRISTINA - resolving; likely pre-renal vs septic ATN; avoid nephrotoxins; recheck BMP in am # acute hypoxia - resolved # HTN - continue atenolol + amlodipine # CVA - continue statin, ASA # encephalopathy, septic vs. toxic-metabolic, superimposed on dementia - NPO pending [facility]NER evaluation - continue sertraline, mirtazapine # chronic pain - fentanyl patch # BPH - tamsulosin # VTE ppx - UFH # dispo - anticipate return to [facility] - discussed goals of care with daughter Verito over phone. for now, she would like to continue pt's DNI but CPR/compressions OK status but is open to co nsidering transition from hospice if he does not improve with IV fluids and antibiotics Quality Stroke Does the patient have a stroke diagnosis?: No VTE Prior VTE?: No VTE Risk Level:: Medical - moderate - high VTE Device Contraindication: N/A - Device Ordered VTE Drug Contraindication: Treatment Not Indicated
--- NOTE | 2021-09-02 12:22 | MHC.CM.PN ---
pt from [address] called and spoke with pts son who confirms plan of pt retruning to [facility] when dcd
--- NOTE | 2021-09-02 14:30 | MHC.SL.SWA ---
Speech Pathologist Impression: Risk of Aspiration Oralpharyngeal Dysphagia Risk of Aspiration Due to: Neurological Condition History of Pneumonia Reduced Cognition Dysphasia Diet Status: No Change Liquid Consistency and Strategies for Safe Swallow: Liquid Intake Recommendation: NPO Solid Food Consistency: Dietary Recommendations: NPO Additional Modifications to Solid Foods: Patient is admitted with sepsis and hypoxia from pneumonia. Per chart review, patient is on pureed solids (NDD1), nectar thick liquids, crushed pills, and aspiration precautions at baseline at [facility]. This date 09/02/21 patient presented overt s/s of aspiration when consuming these consistencies. At this time recommend continue NPO status due to overt s/s of aspiration. Recommend keep head of bed elevated at least 30 degrees to decrease risk of microaspiration and monitor tolerance of daily oral care. MEAT SLICER to return tomorrow morning to re-evaluate. Oral Medication Intake: NPO Supervision While Eating and Drinking for Safe Swallow: PO with MEAT SLICER Recommendation for Speech: Inpatient Speech Therapy Comment: Plan to re-evaluate tomorrow morning. Stenotype Operator Clinican/Clinical Fellow: Yes: Verenice Vega Supervisory Statement: I have reviewed and agree with the student/clinical fellow's documentation: N/A Speech Language Pathologist: Naya Elias M.A., CCC-MEAT SLICER
[2021-09-02] MEDS: vancomycin HCL 1,000 MG in 0.9 % Sodium Chloride 250 ML 270 MG IV (23:19)
[2021-09-03] MEDS: Piperacillin Sodium/Tazobactam 2.25 GM in 0.9 % Sodium Chloride 50 ML IV ×2 (00:29→06:25)
[2021-09-03] MEDS: 0.9 % Sodium Chloride Flush 3 ML SYRINGE IVFLUSH ×2 (00:30→07:45)
[2021-09-03 03:26] VITALS: BP 159/77; PULSE 65; RESP 18; TEMP 36.8; O2SAT 99
[2021-09-03] MEDS: Dextrose 5 % 1,000 ML 50 ML IVCONT (05:43)
[2021-09-03] MEDS: Heparin Sodium,Porcine 5,000 UNIT/ML VIAL 5000 UNIT SUBCUT (05:44)
[2021-09-03 06:32] LABS: Hematocrit 24.3 % (42-52); Mean Corpuscular HGB Conc 32.9 g/dl (31.0-36.0); Mean Corpuscular Hemoglobin 29.6 pg (27.0-33.0); Platelet Count 183 X10*3/uL (160-400); Red Cell Distribution Width 13.9 % (11.0-16.0); White Blood Count 7.4 X10*3/uL (4.8-10.8)
[2021-09-03 06:39] LABS: Anion Gap 13 (12-20); Blood Urea Nitrogen 29 mg/dL (9-16); Calcium 8.9 mg/dL (8.4-10.2); Carbon Dioxide 22 mmol/L (22-29); Chloride 112 mmol/L (96-108); Creatinine Clr Calc Pharmacy 48.5; Estimated Glomerular Filt Rate 58; Glucose Random 95 mg/dL (60-115); Potassium 4.2 mmol/L (3.3-5.1); Sodium 143 mmol/L (135-145)
[2021-09-03 08:00] VITALS: BP 148/80; PULSE 64; RESP 18; TEMP 36.7; O2SAT 95
[2021-09-03 08:04] LABS: Procalcitonin 0.35 ng/mL
[2021-09-03] MEDS: Morphine Sulfate 2 MG/ML CARTRIDGE 1 MG IVPUSH (10:36)
--- NOTE | 2021-09-03 10:52 | P.DS_ITS ---
DS: Providers Provider Date of Service: 09/03/21 Date of admission: 09/01/21 03:12 Primary care physician: Unknown Physician Consults: 09/01/21 03:11 Consult to Infectious Diseases Routine Consulting Provider: Basilia Coe Reason for consultation: Asp pna DS: Diagnosis Discharge Diagnosis (1) KRISTINA (acute kidney injury): Status: Acute (2) Pneumonia: Status: Acute DS: Summary Hospital Course Hospital Course: Chief Complaint: Fever 85-year-old male with a past medical history of hypertension, hyperlipidemia, CVA, nonverbal, lives in [facility], history of aspiration pneumonia , history of Pseudomonas UTI presented to the hospital with a chief complaint of shortness of breath. Patient has dementia/nonverbal.? drowsy and lethargic; Most of the history obtained from the records and the ER staff. Reportedly patient was sent from the [facility] because he was having of shortness of breath and tachypneic; ER team mentioned that patient on presentation noted to have fever of 102 F; chest x-ray showed concerns for aspiration pneumonitis.? Patient was given IV vancomycin and Zosyn.? Also noted to have KRISTINA.? And wanted to admit to the hospital for further management. Hospital course: 85yo nonverbal M resident of [facility] with dementia, HTN, HLD, prior CVA, hx aspiration PNA, hx Pseudomonas UTI presenting with dyspnea, tachypnea, and lethargy admitted for sepsis and hypoxia from pneumonia that it likely related to aspiration with underlying dysphagia. He was started with Zosyn and and vancomycin given positive MRSA screen of nose. Additionally he was found to have Hyeprnatremia from lack of oral intake, acute renal insuficiency also from lack of enough water intake. Initially was hypoxic but has improved.. Over patient continue to perform poorly and has failed multiple swalw eval with and continue to be NPO. At this point his dysphagia is unlikely to get better and will continue to suffer aspirations and pneumonia and not eating will continue to result in dehydration and renal failure. I have had goals of care discussion with patient;s daughter and Verito and have come to the conclusion that hospice care is the apropriate goal of care at this time and therefore patient will be transfered back to [facility], no med other those for comfort. Time Spent with Patient Time attestation: Total time spent providing and/or coordinating discharge services: Discharge coordination time: Greater than 30 minutes Quality: Stroke Does the patient have a stroke diagnosis?: No Physical Exam Vital Signs: Vital Signs: Last Vital Signs Temp 98.1 F 09/03/21 08:00 Pulse 64 09/03/21 08:00 Resp 18 09/03/21 08:00 BP 148/80 H 09/03/21 08:00 Pulse Ox 95 09/03/21 08:00 Body Mass Index 23.1 General: confused, no acute distress Resp: bilateral rhonchi CVS: S1,S2,RRR GI: +BS, NT, no distention Skin: No rash Neuro: motor grossly intact Psych: appropriate affect DS: Data Data Completed and Pending Labs on day of discharge: Laboratory Results - last 24 hr 09/03/21 09/03/21 09/03/21 05:57 05:57 05:57 WBC 7.4 RBC 2.70 L Hgb 8.0 L Hct 24.3 L MCV 90.0 MCH 29.6 MCHC 32.9 RDW 13.9 Plt Count 183 MPV 10.0 Absolute Nucleated RBC 0.000 Nucleated RBC % (auto) 0.0 Sodium 143 Potassium 4.2 Chloride 112 H Carbon Dioxide 22 Anion Gap 13 BUN 29 H Creatinine 1.19 Estim Creat Clear Calc 48.5 Estimated GFR 58 Random Glucose 95 Calcium 8.9 Procalcitonin 0.35 Preliminary micro results at discharge 09/01/21 01:14 Blood Culture - Preliminary Blood - Venous No growth after 48 hours. 09/01/21 01:14 Blood Culture - Preliminary Blood - Venous No growth after 48 hours. Discharge Plan Discharge Anticipated Discharge Date/Time: 09/03/21 10:46 Patient Disposition: Xfer [facility] Discharge Diagnosis: Aspiration pneumonia, Sepsis, dysphagia Referrals: Physician,Unknown J [Primary Care Provider] - 1 Week Discharge Medications: New lorazepam 2 mg/mL concentrate 0.5 mg PO Q6H PRN (Reason: anxiety) Qty: 30 RF: 0 morphine 20 mg/5 mL (4 mg/mL) solution 5 mg PO Q3H PRN (Reason: dyspnea) Qty: 100 RF: 0 scopolamine base [Transderm-Scop] 1 mg over 3 days patch 3 day 1 patch transdermal Q3D PRN (Reason: secretions) Qty: 4 RF: 0 Continued chlorhexidine gluconate [Periogard] 0.12 % Mouthwash 15 ml BUCCAL BID RF: 0 Discontinued tamsulosin 0.4 mg Capsule 0.4 mg PO DAILY@2000 Qty: 30 RF: 0 oxycodone 5 mg Tablet 5 mg PO Q6H PRN (Reason: Pain, Severe (Pain Scale 7-10)) Qty: 30 RF: 0 amlodipine 5 mg Tablet 5 mg PO BEDTIME RF: 0 sertraline 50 mg Tablet 50 mg PO DAILY RF: 0 fentanyl 50 mcg/hr Patch 72 Hour 50 mcg TRANSDERMAL Q72H RF: 0 docusate sodium [Colace] 100 mg Capsule 100 mg PO DAILY RF: 0 mirtazapine [Remeron] 15 mg Tablet 7.5 mg PO BEDTIME RF: 0 melatonin 3 mg Capsule 3 mg PO BEDTIME RF: 0 acetaminophen 325 mg tablet 325 mg PO TID PRN (Reason: Pain, Mild (Pain Scale 1-3)) RF: 0 atorvastatin 10 mg tablet 10 mg PO BEDTIME RF: 0 aspirin 81 mg tablet,chewable 81 mg PO DAILY RF: 0 polyethylene glycol 3350 [Miralax] 17 gram/dose Powder 17 g PO DAILY@0800 RF: 0 atenolol 25 mg tablet 25 mg PO DAILY RF: 0 omeprazole 20 mg capsule,delayed release(DR/EC) 20 mg PO DAILY@1600 RF: 0 Discharge Orders: Discharge Order (Routine); Ordered 09/03/21 Ordered By: Karri Root Activity on Discharge: NPO Stand Alone Forms: Patient Portal Discharge page Care Plan Goals: Comfort measures Health Concerns: Hospice/comfort care Plan of Treatment: Hospice/comfort care Assessment: as above
--- NOTE | 2021-09-03 11:33 | PC.NURSE ---
Skin assessment completed. Patient has blanchable redness to buttocks barrier cream applied. Also, bilateral heels boggy. Floated on pillows. Scattered bruising on bilateral upper extremities.. No other skin issues noted at this time.
[2021-09-03 12:00] VITALS: BP 142/65; PULSE 69; RESP 20; TEMP 36.9; O2SAT 99
--- NOTE | 2021-09-03 12:08 | PC.NURSE ---
Spoke with daughter who admits that she does not wish to give artificial feedings to her Father and that [facility]/Hospice is the best option. Will transfer to [facility]. [facility] requesting that MOLST be changed appropriately prior to transfer back.
--- NOTE | 2021-09-03 12:16 | MHC.SL.DTX ---
Pre-Treatment Diet: Subjective: Changes made to current diet?: No: Continue NPO Dysphasia Diet Status: No Change Liquid Consistency and Strategies: Liquid Intake Recommendation: NPO Pt to remain with HOB at 30 degrees to reduce the risk of microaspiration. He continues with a wet, non productive cough at baseline. Oral care should continue to be provided. Solid Food Consistency: Dietary Recommendations: NPO Oral Medication Intake: NPO Supervision While Eating and/Drinking: PO with GROC[facility] S[facility]ER Level of Impact on: Daily activities: Severe Community: Severe Prognosis for Improvement: Guarded Recommendation for Speech: Inpatient Speech Therapy Comment: Plan to re-evaluate tomorrow morning. Additional Comments: Treatment: Pt was seen for a re-assessment of his swallowing function while seated upright in bed. Pt requested this GROCERY SACKER to move his IV pole away from his head. Per EMR, pt's baseline diet at the [facility] is NDD1 PUREED solids with NECTAR THICK liquids. Pt demonstrated a wet, non productive cough at baseline prior to any PO trials. Pt elicited overt s/s aspiration with all consistencies presented when seen by GROCERY SACKER 09/02. Pt again demonstrated immediate, overt s/s aspiration with a 1/2 tsp presentation of honey thick liquids as well as a 1/2 tsp of pureed solids this date. Updated with RN, who reported that pt may transfer to Hospice care. GROCERY SACKER will continue to follow pt. Assessment: Fisher Crab Clinican/Clinical Fellow: No Supervisory Statement: I have reviewed and agree with the student/clinical fellow's documentation: N/A Speech Language Pathologist: Idalia Daly M.A., [facility]
--- NOTE | 2021-09-03 13:28 | MHC.CM.PN ---
pt being dcd today to [facility] spoke with lb all requested imfo faxed to facility referral made to [facility] who i requested to contqact prasanth to arrange an imformational
[2021-09-06 10:27] LABS: Legionella Ag Urine Not Detected (Not Detected)
== END 2021-09-03 14:33 | disposition skilled nursing facility (03) | DRG 871 ==
LOC: HO.ED 03:14 → HO.EDOVER 03:24 → HO.IMC 19:03
PROVIDERS: Family Medicine; Internal Medicine; Nurse Practitioner Family; Admitting Provider Hospitalist; Emergency Provider Student in an Organized Health Care Education/Training Program; Visit Provider Internal Medicine
DX: A41.9 Sepsis, unspecified organism (principal); J18.9 Pneumonia, unspecified organism; J69.0 Pneumonitis due to inhalation of food and vomit; N17.9 Acute kidney failure, unspecified; N39.0 Urinary tract infection, site not specified; E87.0 Hyperosmolality and hypernatremia; F03.90 Unspecified dementia, unspecified severity, without behavioral disturbance, psychotic disturbance, mood disturbance, and anxiety; Z20.822 Contact with and (suspected) exposure to COVID-19; E78.5 Hyperlipidemia, unspecified; I10 Essential (primary) hypertension; B95.62 Methicillin resistant Staphylococcus aureus infection as the cause of diseases classified elsewhere; R09.02 Hypoxemia; R13.10 Dysphagia, unspecified; I69.820 Aphasia following other cerebrovascular disease; N40.0 Benign prostatic hyperplasia without lower urinary tract symptoms; G89.29 Other chronic pain; Z88.5 Allergy status to narcotic agent; Z79.899 Other long term (current) drug therapy; Z66 Do not resuscitate
CPT/HCPCS: 0241U; 36415; 71045; 80048; 80076; 81001; 82803; 83605; 83690; 83880; 84145; 84484; 85025; 85027; 85610; 85730; 87040; 87449; 87633; 87640; 87641; 92610; 93005; 96365; 96366; 96367; 99285; J2270; J2543; J3370